=== PATIENT | male | born 1945 | race Caucasian/White ===

== ENCOUNTER → 2019-01-08 | Outpatient (CLI) | payer MEDICARE, BC ==
--- NOTE | 2019-01-08 10:11 | XR ---
EXAMINATION TYPE: XR lumbosacral spine min 4V DATE OF EXAM: 01/08/2019 CLINICAL HISTORY: pain COMPARISON: NONE TECHNIQUE: Frontal, lateral, and oblique images of the lumbar spine are obtained. FINDINGS: Grade 1 anterolisthesis L4 and L5 measuring 7 mm and L5 on S1 also measuring approximately 7 mm. Severe degenerative narrowing L3-4, L4-5 and L5-S1 with mild narrowing at the remaining levels. No evidence for compression fracture. IMPRESSION: Degenerative changes with spondylolisthesis as noted.
== END ==
LOC: RADXRYALE 09:16
PROVIDERS: ATTEND Internal Medicine
DX: M47.816 Spondylosis without myelopathy or radiculopathy, lumbar region (principal); M47.16 Other spondylosis with myelopathy, lumbar region
CPT/HCPCS: 72110

== ENCOUNTER → 2021-05-14 | Outpatient (CLI) | payer MEDICARE, BC ==
[2021-05-14 10:05] LABS: INR 1.1 (<1.2); Partial Thromboplastin Time 26.4 sec (22.0-30.0); Prothrombin Time 11.8 sec (9.0-12.0)
--- NOTE | 2021-05-14 11:46 | XR ---
EXAMINATION TYPE: XR chest 2V DATE OF EXAM: 05/14/2021 COMPARISON: NONE HISTORY: Presurgical. TECHNIQUE: Frontal and lateral views of the chest are obtained. FINDINGS: Slightly elevated left hemidiaphragm. There is no suspicious focal air space opacity, pleu ral effusion, or pneumothorax seen. Mild cardiomegaly with single lead pacemaker and atherosclerotic thoracic aorta. The osseous structures are demineralized. IMPRESSION: Mild cardiomegaly without acute pulmonary process.
[2021-05-14 14:15] LABS: HCT 47.5 % (39.6-50.0); HGB 15.1 g/dL (13.0-17.0); MCH 32.2 pg (27.0-32.0); MCHC 31.8 g/dL (32.0-37.0); MCV 101.3 fL (80.0-97.0); Mean Platelet Volume 10.3 fL (9.5-12.2); NRBC Per 100 WBC 0 /100 WBCS (0.0-0.0); Platelet Count 194 X 10*3/uL (140-440); RBC 4.69 X 10*6/uL (4.40-5.60); RDW 13.2 % (11.5-14.5); WBC 7.63 X 10*3/uL (4.50-10.00)
[2021-05-14 14:47] LABS: Hepatitis A Antibody IgM Nonreactive (Nonreactive); Hepatitis B Core IgM Nonreactive (Nonreactive); Hepatitis B Surface Antigen Nonreactive (Nonreactive); Hepatitis C IgG Antibody Nonreactive (Nonreactive)
[2021-05-14 14:48] LABS: ALT 17 U/L (10-49); AST 27 U/L (14-35); African American GFR (CKD) 80.3 (60.0-200.0); Albumin 4.8 g/dL (3.8-4.9); Albumin/Globulin Ratio 1.68 (1.60-3.17); Alkaline Phosphatase 99 U/L (41-126); Blood Urea Nitrogen 22.9 mg/dL (9.0-27.0); Calcium 9.8 mg/dL (8.7-10.3); Carbon Dioxide 29.2 mmol/L (20.0-27.5); Chloride 100 mmol/L (96-109); Chol/HDL Ratio 2.44 Ratio; Globulin 2.8 g/dL (1.6-3.3); Glucose 101 mg/dL (70-110); LDL Cholesterol,Calculated 68.3 mg/dL (0.0-131.0); Magnesium 2.2 mg/dL (1.5-2.4); Non-African American GFR(CKD) 69.3 (60.0-200.0); Potassium 4.4 mmol/L (3.5-5.5); Sodium 143 mmol/L (135-145); Total Protein 7.6 g/dL (6.2-8.2); VLDL Calculation 17.28 mg/dL (5.00-40.00)
[2021-05-14 15:30] LABS: Appearance,Urine Clear (Clear); Bilirubin,Urine Negative (Negative); Blood,Urine Negative (Negative); Color,Urine Yellow (Yellow); Ketones,Urine Negative (Negative); Leukocyte Esterase,Urine Negative (Negative); Nitrite,Urine Negative (Negative); PH, Urine 6.5 (5.0-8.0); Protein,Urine Negative (Negative); Urobilinogen,Urine 0.2 (0.2,1.0)
== END | disposition home or self-care (01) ==
LOC: LABWHC1 09:05
PROVIDERS: ATTEND Thoracic Surgery (Cardiothoracic Vascular Surgery)
DX: Z01.812 Encounter for preprocedural laboratory examination (principal); I51.7 Cardiomegaly
CPT/HCPCS: 36415; 71046; 80053; 80061; 80074; 81003; 83036; 83735; 84439; 84443; 85027; 85610; 85730; 87070; 87086; 93970

== ENCOUNTER 2021-05-19 05:41 | Inpatient (IN) | payer MEDICARE, BC ==
[~2021-05-19 05:41] MED LIST: ALBUMIN HUMAN 25% 50 ML IV ONE; ALBUMIN HUMAN 5% 500 ML IVPB ONE; ASPIRIN 325 MG TAB PO ONE; ATORVASTATIN 10 MG TAB PO ONE; CALCIUM CHLORIDE 100 MG/ML 10 ML SYRINGE IV ONE; CARDIOPLEGIC SOLN (K+ 16 MEQ/L 1,000 ML with SODIUM BICARB (1 MEQ/ML) 20 ML, LIDOCAINE ... PERFUSION ONE; CHLORHEXIDINE GLUCONATE 15 ML CUP MUCOUS MEM ONE; CLEVIDIPINE BUTYRATE 25 MG in EMPTY BAG 1 BAG IV ONE; DEXAMETHASONE SOD PHOSPHATE 4 MG/ML 1 ML VIAL IV ONE; HEPARIN SODIUM 1,000 UN/ML (10ML VL) IV ONE; HEPARIN SODIUM,PORCINE 5,000 UNIT in SODIUM CHLORIDE 0.9% 500 ML 500 ML IV ONE; INSULIN REGULAR 100 UNIT in SODIUM CHLORIDE 0.9% 100 ML IV ONE; LACTATED RINGERS 1,000 ML IV ONE; LACTATED RINGERS 1,000 ML IV SCH; MAGNESIUM SULFATE 16.24 MEQ in EMPTY SYRINGE 1 SYR IV ONE; MANNITOL 25% 12.5 GM/50 ML VIAL IV ONE; METOPROLOL TARTRATE 12.5 MG TAB PO ONE; NITROGLYCERIN SL TABS 0.4 MG TAB SUBLINGUAL ONE; NITROGLYCERIN-D5W PMX 25 MG/250 ML BTL IV ONE; NITROGLYCERIN-D5W PMX 50 MG in DEXTROSE/WATER 1 250ML.BAG IV ONE; NOREPINEPHRINE 4 MG in SODIUM CHLORIDE 0.9% 250 ML IV ONE; ONDANSETRON 4 MG/2 ML VIAL IVP ONE; PAPAVERINE 360 MG in SODIUM CHLORIDE 0.9% 90 ML IV ONE; PHENYLEPHRINE 10 MG/ML VIAL IV ONE; PHENYLEPHRINE 40 MG in SODIUM CHLORIDE 0.9% 250 ML IV ONE; PROTAMINE SULFATE 10 MG/ML 25 ML VIAL IV ONE; PROTAMINE SULFATE 250 MG in EMPTY BAG 1 BAG IV ONE; SODIUM BICARB 8.4% 50 ML SYR (1 MEQ/ML) IV ONE; SODIUM CHLORIDE 0.9% 1,000 ML IV ONE; TRANEXAMIC ACID 2,000 MG in SODIUM CHLORIDE 0.9% 80 ML IV ONE; ceFAZolin 1,000 MG in SODIUM CHLORIDE 0.9% IRRIGATIO 1,000 ML IRRIGATION ONE; propofoL 1,000 MG/100 ML VIAL IV ONE
[2021-05-19] MEDS ORDERED: LIDOCAINE 1% (10MG/ML) FOR IV START INTRADERMA ONE (06:23)
[2021-05-19 06:33] LABS: Glucose,Whole Blood 94 mg/dL (75-99)
[2021-05-19] MEDS ORDERED: HYDROmorphone 0.5 MG/0.5 ML SYRINGE IVP PRN (07:00)
[2021-05-19] MEDS ORDERED: MIDAZOLAM HCL 10 MG/10 ML VIAL ONE (07:43)
[2021-05-19] MEDS ORDERED: ELECTROLYTE-R (PH 7.4) 1,000 ML IV.SOLN IV ONE (07:43)
[2021-05-19] MEDS ORDERED: MAGNESIUM SULFATE 4 MEQ/ML 10ML VIAL ONE (07:43)
[2021-05-19] MEDS ORDERED: HEPARIN SODIUM,PORCINE 10,000 UNIT/ML 1 ML VIAL ONE (07:43)
[2021-05-19] MEDS ORDERED: PROPOFOL 10 MG/ML 20 ML VIAL IV ONE (07:43)
[2021-05-19] MEDS ORDERED: ALBUMIN HUMAN 5% (25gm) 500 ML VIAL IVPB ONE (07:43)
[2021-05-19] MEDS ORDERED: PHENYLEPHRINE-0.9% NACL SYG 1,000 MCG/10 ML SYRINGE ONE (07:43)
[2021-05-19] MEDS ORDERED: SODIUM CHLORIDE 0.9% IRRIG 1,000 ML BTL IRRIGATION ONE ×2 (07:43→20:59)
[2021-05-19] MEDS ORDERED: LIDOCAINE 2% SYG (PF) 100 MG/5 ML ONE (07:43)
[2021-05-19] MEDS ORDERED: fentaNYL (PF) 50 MCG/ML 50 ML VIAL ONE (07:43)
[2021-05-19] MEDS ORDERED: CALCIUM CHLORIDE 100 MG/ML 10 ML SYRINGE ONE (07:43)
[2021-05-19] MEDS ORDERED: VECURONIUM 10 MG VIAL IV ONE (07:43)
--- NOTE | 2021-05-19 08:02 | P.ANPRN ---
Procedure Note - Anesthesia - Invasive Line Right Central Line Time Out Performed: Yes ([id number]) Date of Procedure: 05/19/21 Time of Procedure: 07:26 Location of Patient: PreOp Preparation: Sterile Prep, Sterile Dressing Ultrasound Used: Yes Purpose - Visualization and Identification of Vasculature: Yes Image Stored and Saved: Yes Narrative: Central line placement per sterile protocol utilized. Informed consent obtained. Central line placement per sterile protocol utilized. Right Internal jugular vein cannulated under aseptic precautions. 3cc 1% lidocaine infiltrated initially after cleaning with iodine based prep and draping. Ultrasound used to locate the vein and selginger technique used. 9Fr introduced sheath inserted and after the finding the needle with airplane pilot photogrammetry needle/catheter. After the insertion of PA Catheter the line is dressed with biopatch and tegaderm. Patient tolerated the procedure well. Right [place] Time Out Performed: Yes Date of Procedure: 05/19/21 Time of Procedure: 07:42 Location of Patient: PreOp Preparation: Sterile Prep, Sterile Dressing Narrative: . Central line placement per sterile protocol utilized. 8Ff PA catheter threaded through the Right IJ introducer sheath under asepsis with continuous waveform monitoring. Catheter at 58 cms tino. - BRIONNA Intraop Pre Bypass BRIONNA Intraop - Anesthesia Indication: Aortic valve mass resection, mitral valve and tricuspid valve repair Date of Procedure: 05/19/21 Pre-operative Diagnosis: Aortic valve mass- fibroblastoma, mitral and tricuspid regurgitation Post-operative Diagnosis: Resection of the aortic valve mass, mitral and tricuspid ring annuloplasty Surgeon: Lazaro Aj Left Ventricle: Ejection fraction is 55-60% Ejection Fraction: Normal Regional Wall Motion Abnormalities: None Left Ventricle Hypertrophy: No R. Ventricle Function: Normal Aortic Valve: A 1 cm mobile pedunculated mass seen on the left coronary cusp on the aortic side. No significant aortic stenosis or regurgitation is seen. Trace AI seen. Anatomy: Trileaflet Aortic Stenosis: None Aortic Regurgitation: Trace Mitral Stenosis: None Mitral Regurgitation: Moderate Tricuspid Stenosis: None Tricuspid Regurgitation: Moderate R. Atrial Dilation: Yes R. Atrial PFO: No L. Atrial Dilation: Yes Aortic Dissection: No Aortic Calcification: None Plural Effusion: None - BRIONNA Intraop Post Bypass BRIONNA Intraop Post Bypass Left Ventricle: Ejection fraction 50% Ejection Fraction: Normal Regional Wall Motion Abnormalities: None R. Ventricle Function: Normal Aortic Valve: Unchanged Aortic Valve: No mass seen in the aortic valve now. Trace AI seen same as before Mitral Valve: Not residual mitral regurgitation seen. Valvuloplasty ring appears to be seated well. Peak gradient across the prosthetic mitral valve is 5 mm of Hg and mean gradient 2mm of Hg. Tricuspid: Tricuspid valvuloplasty using seen. Seated well. No significant regurgitation seen. No significant gradient across the valve. Pulmonic: Unchanged Aortic Dissection: No
[2021-05-19 08:19] LABS: ABG Base Excess 5.8 mmol/L; ABG Glucose Whole Blood 94 mg/dL (75-99); ABG HCO3 30 mmol/L (21-25); ABG Hematocrit 42 % (34.0-46.0); ABG Ionized Calcium 4.6 mg/dL (4.5-5.3); ABG Lactic Acid Whole Blood 0.6 mmol/L (0.5-1.6); ABG PCO2 40 mmHg (35-45); ABG PH 7.48 (7.35-7.45); ABG Potassium Whole Blood 3.1 mmol/L (3.4-4.5); ABG Sodium Whole Blood 142 mmol/L (135-146); ABG TCO2 31 mmol/L (19-24)
[2021-05-19] MEDS ORDERED: ceFAZolin 1,000 MG in SODIUM CHLORIDE 0.9% 1,000 ML IRRIGATION ONE (09:06)
[2021-05-19] MEDS ORDERED: SODIUM CHLORIDE 0.9% 500 ML 500 ML with HEPARIN SODIUM,PORCINE 5,000 UNIT IV ONE ×2 (09:06)
[2021-05-19 09:07] LABS: ABG Base Excess 4.6 mmol/L; ABG Glucose Whole Blood 140 mg/dL (75-99); ABG HCO3 30 mmol/L (21-25); ABG Hematocrit 41 % (34.0-46.0); ABG Ionized Calcium 4.6 mg/dL (4.5-5.3); ABG Lactic Acid Whole Blood 0.8 mmol/L (0.5-1.6); ABG Oxygen Saturation 99.5 % (94-97); ABG PCO2 46 mmHg (35-45); ABG PH 7.42 (7.35-7.45); ABG PO2 181 mmHg (83-108); ABG Potassium Whole Blood 3.1 mmol/L (3.4-4.5); ABG Sodium Whole Blood 142 mmol/L (135-146); ABG TCO2 31 mmol/L (19-24)
[2021-05-19 09:47] LABS: ABG Base Excess 1.7 mmol/L; ABG Glucose Whole Blood 137 mg/dL (75-99); ABG HCO3 26 mmol/L (21-25); ABG Hematocrit 34 % (34.0-46.0); ABG Lactic Acid Whole Blood 0.9 mmol/L (0.5-1.6); ABG PCO2 40 mmHg (35-45); ABG PH 7.43 (7.35-7.45); ABG PO2 379 mmHg (83-108); ABG Sodium Whole Blood 139 mmol/L (135-146); ABG TCO2 27 mmol/L (19-24)
[2021-05-19 10:30] LABS: ABG Glucose Whole Blood 140 mg/dL (75-99); ABG HCO3 28 mmol/L (21-25); ABG Ionized Calcium 4.5 mg/dL (4.5-5.3); ABG Lactic Acid Whole Blood 0.9 mmol/L (0.5-1.6); ABG PCO2 51 mmHg (35-45); ABG PH 7.34 (7.35-7.45); ABG PO2 356 mmHg (83-108); ABG Potassium Whole Blood 3.4 mmol/L (3.4-4.5); ABG Sodium Whole Blood 140 mmol/L (135-146); ABG TCO2 29 mmol/L (19-24)
[2021-05-19 11:07] LABS: ABG Glucose Whole Blood 162 mg/dL (75-99); ABG HCO3 26 mmol/L (21-25); ABG Ionized Calcium 4.4 mg/dL (4.5-5.3); ABG Lactic Acid Whole Blood 0.9 mmol/L (0.5-1.6); ABG PCO2 37 mmHg (35-45); ABG PH 7.45 (7.35-7.45); ABG PO2 364 mmHg (83-108); ABG Potassium Whole Blood 3.5 mmol/L (3.4-4.5); ABG Sodium Whole Blood 140 mmol/L (135-146); ABG TCO2 27 mmol/L (19-24)
[2021-05-19 11:34] LABS: ABG Glucose Whole Blood 154 mg/dL (75-99); ABG HCO3 26 mmol/L (21-25); ABG Ionized Calcium 4.5 mg/dL (4.5-5.3); ABG Lactic Acid Whole Blood 0.8 mmol/L (0.5-1.6); ABG PCO2 46 mmHg (35-45); ABG PH 7.36 (7.35-7.45); ABG PO2 313 mmHg (83-108); ABG Potassium Whole Blood 3.4 mmol/L (3.4-4.5); ABG Sodium Whole Blood 141 mmol/L (135-146); ABG TCO2 28 mmol/L (19-24)
--- NOTE | 2021-05-19 12:39 | P.OP ---
Date of Procedure: 05/19/21 Preoperative Diagnosis: Aortic valve tumor, mitral regurgitation, tricuspid regurgitation, chronic persistent atrial fibrillation. Postoperative Diagnosis: Same Procedure(s) Performed: Resection of aortic valve tumor, mitral valve annuloplasty, tricuspid valve annuloplasty, modified biatrial Butler maze with occlusion of left atrial appendage with a 40 mm AtriCure clip, epi-aortic ultrasonography. Implants: 40 mm AtriCure clip, 30 mm physio-2 mitral annuloplasty ring, 30 mm MC 3 tricuspid annuloplasty band Anesthesia: GETA Surgeon: Lazaro Aj Clinical Operations Leader #1: Zafar Webber Clinical Operations Leader #2: Fredrick Zhou Estimated Blood Loss (ml): 500 IV fluids (ml): 2,000 Urine output (ml): 400 Pathology: other (Aortic valve tumor for permanent section) Condition: stable Disposition: ICU Indications for Procedure: 75-year-old male who presented 9 months ago with sepsis. Etiology is sepsis was never determined. Echocardiography demonstrated an abnormality on the aortic valve. There was a mass present. This was felt to possibly represent endocarditis and the patient was treated with antibiotics. 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 Patient was also noted to have 3+ MR and 3+ TR with markedly dilated atria and ventricles. Patient had long-standing history of atrial fibrillation with permanent VVI pacemaker implant. Ventricular function was well preserved. Patient eventually came to see me for surgical consultation about a month ago. The natural history of papillary fibro-elastoma was discussed with the patient and he was at high risk for embolization and stroke. Elective surgery was scheduled. Preoperative cardiac catheterization demonstrated no significant coronary artery disease. Operative Findings: BRIONNA confirmed the findings of the previous echo and BRIONNA performed on an outpatient basis last fall. Was a 1 cm tumor attached to the left coronary cusp of the aortic valve. With central mitral and recurrent tricuspid valvular regurgitation which was moderate to severe. Epi-aortic ultrasonography intraoperatively demonstrated no significant disease in the ascending aorta. Exploration of the mitral and tricuspid valves revealed normal valves with dilated annularly. Exploration of the aortic valve demonstrated a 1 cm fibrinous tumor attached to the edge of the leaflet of the left coronary cusp of the aortic valve. There were able to resect this without significant impact on the overall structural integrity of the aortic valve. Description of Procedure: Patient was brought to the operating room, placed supine on the operating table, anesthetized and intubated. Operative monitoring lines had been placed in the preop holding area. The anterior torso and bilateral lower extremities were sterilely prepped and draped. Midline sternotomy was performed. The left pleural space was opened widely of the right was opened moderately. Standard sternal retractor was placed. Pericardium was opened in the midline and the heart was exposed with pericardial sutures. Patient was systemically heparinized. Dissection was carried out around the right superior and inferior pulmonary veins and the left atrium ablated at the entrance of the right sided pulmonary veins using the AtriCure clamp. 3 parallel lines were performed. Once we assured good heparinization, the patient was cannulated for cardiopulmonary bypass. Epi-aortic ultrasound was performed prior to cannulation and demonstrated essentially normal ascending aorta. 7 mm arterial cannula was placed in the distal ascending aorta. A 36 straight venous cannula was placed through the right atrial appendage into the inferior vena cava 30 right angle cannula was placed in the superior vena cava. These were connected to the pump and the lines were rapped. Antegrade and retrograde cardiac please lines were placed in standard fashion. The patient was placed on cardioplegia bypass and stabilized. The ligament of Nhan was divided with electrocautery of the left-sided pulmonary veins were encircled. The left atrium was ablated at the insertion of the left-sided pulmonary veins with 3 parallel lines using the AtriCure clamp. 40 mm AtriCure clip was placed at the base of the left a trial appendage. Aorta was crossclamped and the heart was arrested with cold crystalloid antegrade cardioplegia followed by retrograde cardioplegia. The interatrial groove was developed and the left atrium was entered through the interatrial groove. The mitral valve was exposed with the John retractor. AtriCure clamp was used to create 3 parallel lines at the floor of the left atrium and the roof of the left atrium. Cryoablation was performed onto the mitral annulus posteriorly as well as epicardially onto the coronary sinus. Annuloplasty sutures were placed around the annulus of the mitral valve. The valve and been explored and tested and central regurgitation noted. The anterior leaflet was sized and a 30 mm ring was chosen. The annuloplasty sutures were placed through the sewing ring of the physio-2:30 millimeter ring and the ring was seated and the sutures tied. This resulted in a well- functioning mitral valve without any regurgitation. The left atrium was closed with a running 3-0 Prolene in a single layer. The suture was not yet tied and the left atrial vent was left in place. The aorta was now opened transversely of the aortic valve was exposed. The tumor was immediately evident. The tumor was arising from the edge of the left coronary cusp of the aortic valve. The tumor was shaved off removing just a 1 mm rim of the edge of the leaflet. Tumor was sent for permanent section. Aortic valve was tested and noted to be competent. Aortotomy was closed with a running 2 layer closure of 4-0 Prolene. This dose of antegrade cardioplegia was given. The cable tapes were tightened. The right atrium was opened with a vertical incision. Superior and inferior vena caval lines were created with the AtriCure clamp. 3 parallel lines were performed. Line was performed from the incision into the right atrial appendage. Again 3 parallel lines were performed. A Crile lesion was then taken from the end of the incision across the tricuspid annulus anteriorly. This completed the right-sided maze. Annuloplasty sutures were placed around the annulus of the tricuspid valve avoiding the area of the conduction tissue. A 30 mm MC 3 band was brought up onto the field and the valve sutures placed through the band. The band was seated and the sutures tied without difficulty. The patient was placed in Trendelenburg and the cross-clamp was removed. The right atriotomy was closed with 5-0 Prolene in a single layer. Temporary pacing wires were placed. Patient was AV paced. Patient was rewarmed to systemic temperature from a delano of 34. Retrograde cardioplegia line was removed and the inferior vena caval cannula was pulled back into the right atrium. The superior vena caval cannula was removed. De-airing was monitored with BRIONNA. Once good de-airing had been completed the aortic vent line was removed. Once rewarmed to systemic temperature, the patient was weaned from cardioplegic bypass without the use of inotropic support. Heparin was reversed with protamine and good hemostasis was maintained throughout. The patient was weaned from cardiopulmonary bypass without the use of inotropic support. Pump was returned to the patient. The patient was decannulated in standard fashion. Aortic cannulation sites were reinforced with 40 pledgeted Prolene suture. Heparin was reversed with protamine and good hemostasis was obtained throughout. Right pleural space was drained with a 19 Ghanshyam. The left pleural space was drained with a 32-Bulgarian chest tube. The mediastinum was drained with 36-Bulgarian chest tube. After assuring good hemostasis, the chest was irrigated with antibiotic solution. The sternum was closed with 8 sternal wires. Fascia was closed with 0 [place] area subcutaneous and subcuticular layers were closed wit h layers of Vicryl suture. Dry sterile dressings were applied the patient was transferred to the ICU in stable condition.
[2021-05-19 12:42] LABS: ABG Base Excess -1.2 mmol/L; ABG Glucose Whole Blood 120 mg/dL (75-99); ABG HCO3 25 mmol/L (21-25); ABG Hematocrit 38 % (34.0-46.0); ABG Ionized Calcium 4.4 mg/dL (4.5-5.3); ABG Lactic Acid Whole Blood 1.5 mmol/L (0.5-1.6); ABG Oxygen Saturation 98.6 % (94-97); ABG PCO2 46 mmHg (35-45); ABG PH 7.34 (7.35-7.45); ABG PO2 137 mmHg (83-108); ABG Potassium Whole Blood 3.6 mmol/L (3.4-4.5); ABG Sodium Whole Blood 142 mmol/L (135-146); ABG TCO2 26 mmol/L (19-24)
[2021-05-19 12:50] LABS: ABG PO2 >420 mmHg (83-108)
[2021-05-19 12:51] LABS: ABG Potassium Whole Blood 2.9 mmol/L (3.4-4.5)
[2021-05-19 12:52] LABS: ABG Base Excess 1.2 mmol/L; ABG Hematocrit 33 % (34.0-46.0); ABG Oxygen Saturation 99.7 % (94-97)
[2021-05-19 12:55] LABS: ABG Base Excess 1.7 mmol/L
[2021-05-19 12:56] LABS: ABG Base Excess 0.3 mmol/L
[2021-05-19 12:56] LABS: ABG Hematocrit 32 % (34.0-46.0); ABG Oxygen Saturation 99.9 % (94-97)
[2021-05-19 12:57] LABS: ABG Hematocrit 34 % (34.0-46.0); ABG Oxygen Saturation 99.7 % (94-97)
[2021-05-19] MEDS ORDERED: DEXTROSE 5% IN WATER 100 ML with AMIODARONE 150 MG IV PRN (13:15)
[2021-05-19] MEDS ORDERED: CALCIUM GLUCONATE IN NACL 2 GM in SALINE 1 100ML.BAG IVPB PRN (13:15)
[2021-05-19] MEDS ORDERED: FLUTICASONE 50MCG/SPRAY NASAL 16GM EA NOSTRIL PRN (13:15)
[2021-05-19] MEDS ORDERED: Magnesium Replacement Protocol 1 EACH MISC MISCELLANE PRN (13:15)
[2021-05-19] MEDS ORDERED: AMIODARONE 360 MG in DEXTROSE 5% IN WATER 200 ML IV ONE ×2 (13:15)
[2021-05-19] MEDS ORDERED: hydrALAZINE HCL 20 MG/ML 1 ML VIAL IVP PRN (13:15)
[2021-05-19] MEDS ORDERED: BENZOCAINE/MENTHOL LOZENG 1 EACH LOZENGE MUCOUS MEM PRN (13:15)
[2021-05-19] MEDS ORDERED: DEXMEDETOMIDINE/0.9% NACL(PMX) 400 MCG in EMPTY BAG 1 BAG IV SCH (13:15)
[2021-05-19] MEDS ORDERED: Potassium Replacement Protocol 1 EACH MISC MISCELLANE PRN (13:15)
[2021-05-19] MEDS ORDERED: CLEVIDIPINE BUTYRATE 25 MG in EMPTY BAG 1 BAG IV SCH (13:15)
[2021-05-19] MEDS ORDERED: IPRATROPIUM-ALBUTEROL 3 ML NEB INHALATION PRN (13:15)
[2021-05-19] MEDS ORDERED: Phosphorus Replacement Protoco 1 EACH MISC MISCELLANE PRN (13:15)
[2021-05-19] MEDS ORDERED: ONDANSETRON 4 MG/2 ML VIAL IVP PRN (13:15)
[2021-05-19] MEDS ORDERED: METOCLOPRAMIDE 5 MG/ML 2 ML VIAL IVP PRN (13:15)
[2021-05-19] MEDS: ALBUMIN HUMAN 5% 250 ML in EMPTY BAG 1 BAG IVPB PRN ×11 (13:22→23:19)
[2021-05-19 13:29] LABS: Glucose,Whole Blood 143 mg/dL (75-99)
[2021-05-19] MEDS: LACTATED RINGERS 1,000 ML IV SCH (13:29)
[2021-05-19 13:43] LABS: Basophils % (A) 0 %; Eosinophils # (A) 0.1 k/uL (0-0.7); Eosinophils % (A) 0 %; HCT 39.1 % (39.0-53.0); HGB 13.3 gm/dL (13.0-17.5); Lymphocytes % (A) 7 %; MCH 34.6 pg (25.0-35.0); MCV 101.8 fL (80.0-100.0); Macrocytosis Slight; Mean Platelet Volume 7.4; Monocytes # (A) 0.7 k/uL (0-1.0); Monocytes % (A) 5 %; Neutrophils # (A) 11.8 k/uL (1.3-7.7); Neutrophils % (A) 86 %; Platelet Count 140 k/uL (150-450); RBC 3.84 m/uL (4.30-5.90); RDW 13.2 % (11.5-15.5); WBC 13.7 k/uL (3.8-10.6)
[2021-05-19 13:52] LABS: ABG Base Excess -2.1 mmol/L; ABG HCO3 25 mmol/L (21-25); ABG Oxygen Saturation 99.9 % (94-97); ABG PCO2 52 mmHg (35-45); ABG PH 7.28 (7.35-7.45); ABG PO2 365 mmHg (83-108); ABG TCO2 26 mmol/L (19-24)
--- NOTE | 2021-05-19 13:53 | XR ---
EXAMINATION TYPE: XR chest 1V portable DATE OF EXAM: 05/19/2021 COMPARISON: X-ray dated 05/14/2021 HISTORY: Postoperative cardiac surgery TECHNIQUE: Single frontal view of the chest is obtained. FINDINGS: An endotracheal tube is seen with the tip is almost at the juan, withdrawal for about 3cm is advise d. An NG tube is seen with the tip is likely below the diaphragm. A [place] catheter is seen in yong ce. Left intercostal drainage tube with the tip superimposed on the lateral aspect of the right midlu ng zone. Increased cardiac size with sternotomy wire sutures and cardiac valve prosthesis. Left upper chest wa ll single lead pacemaker, appreciated previously. Left intercostal drainage tube with the tip superim posed on the left lung apex. Suspected retrocardiac opacity. Aortic atherosclerotic calcifications. IMPRESSION: Postoperative changes and intubation as described above. The endotracheal tube tip is almost at the c janice, recommend withdrawal for about 3 cm.
[2021-05-19 13:54] LABS: Allen Test Performed? no
[2021-05-19 13:55] LABS: INR 1.2 (<1.2); Partial Thromboplastin Time 35.3 sec (22.0-30.0)
[2021-05-19 13:59] LABS: ALT 18 U/L (4-49); African American GFR (CKD) >90 (>60 ml/min/1.73 sqM); Albumin 3.3 g/dL (3.5-5.0); Anion Gap 6 mmol/L; Blood Urea Nitrogen 20 mg/dL (9-20); Calcium 7.8 mg/dL (8.4-10.2); Carbon Dioxide 23 mmol/L (22-30); Chloride 109 mmol/L (98-107); Glucose 135 mg/dL (74-99); Non-African American GFR(CKD) >90 (>60 ml/min/1.73 sqM); Sodium 138 mmol/L (137-145); Total Protein 5.7 g/dL (6.3-8.2)
[2021-05-19 14:04] LABS: AST 160 U/L (17-59); Alkaline Phosphatase 61 U/L (38-126); Potassium 4.3 mmol/L (3.5-5.1)
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
[2021-05-19] MEDS ORDERED: MUPIROCIN 2% OINT 22 GM TUBE NASAL ONE (15:00)
[2021-05-19 15:09] LABS: Glucose,Whole Blood 155 mg/dL (75-99)
[2021-05-19] MEDS: INSULIN REGULAR 100 UNIT in SODIUM CHLORIDE 0.9% 100 ML IV SCH (15:11)
[2021-05-19] MEDS ORDERED: IPRATROPIUM-ALBUTEROL 3 ML NEB INHALATION SCH (16:00)
[2021-05-19 16:08] LABS: Glucose,Whole Blood 156 mg/dL (75-99)
[2021-05-19] MEDS: HEPARIN SODIUM,PORCINE/PF 5,000 UNIT/0.5 ML SYRINGE SQ SCH (16:18)
[2021-05-19 16:27] LABS: Basophils % (A) 0 %; Eosinophils % (A) 0 %; HCT 33.3 % (39.0-53.0); HGB 11.1 gm/dL (13.0-17.5); Lymphocytes # (A) 0.5 k/uL (1.0-4.8); Lymphocytes % (A) 5 %; MCH 34.1 pg (25.0-35.0); MCHC 33.2 g/dL (31.0-37.0); MCV 102.7 fL (80.0-100.0); Macrocytosis Slight; Mean Platelet Volume 7.6; Monocytes # (A) 0.5 k/uL (0-1.0); Monocytes % (A) 5 %; Neutrophils # (A) 8.9 k/uL (1.3-7.7); Neutrophils % (A) 89 %; Platelet Count 139 k/uL (150-450); RBC 3.25 m/uL (4.30-5.90); RDW 13.3 % (11.5-15.5)
[2021-05-19] MEDS: DOPamine DRIP 800 MG in DEXTROSE/WATER 1 250ML.BAG IV SCH (17:01)
[2021-05-19] MEDS: ACETAMINOPHEN IV (For NPO) 1,000 MG in EMPTY BAG 1 BAG IVPB SCH ×2 (17:01→23:46)
[2021-05-19 17:14] LABS: Glucose,Whole Blood 156 mg/dL (75-99)
[2021-05-19 18:06] LABS: Glucose,Whole Blood 167 mg/dL (75-99)
[2021-05-19 18:14] LABS: Basophils % (A) 0 %; Eosinophils % (A) 0 %; HCT 27.3 % (39.0-53.0); Lymphocytes # (A) 0.5 k/uL (1.0-4.8); Lymphocytes % (A) 6 %; MCH 33.9 pg (25.0-35.0); MCHC 33.2 g/dL (31.0-37.0); MCV 101.8 fL (80.0-100.0); Macrocytosis Slight; Mean Platelet Volume 9.9; Monocytes # (A) 0.5 k/uL (0-1.0); Monocytes % (A) 5 %; Neutrophils # (A) 8.3 k/uL (1.3-7.7); Neutrophils % (A) 89 %; Platelet Count 121 k/uL (150-450); RBC 2.68 m/uL (4.30-5.90); RDW 13.3 % (11.5-15.5); WBC 9.4 k/uL (3.8-10.6)
[2021-05-19 18:46] LABS: HGB 9.1 gm/dL (13.0-17.5)
[2021-05-19 19:02] LABS: Glucose,Whole Blood 153 mg/dL (75-99)
[2021-05-19] MEDS ORDERED: AMIODARONE 450 MG in DEXTROSE 5% IN WATER 250 ML IV SCH ×2 (19:15)
[2021-05-19 19:16] LABS: INR 1.3 (<1.2); Prothrombin Time 13.9 sec (9.0-12.0)
[2021-05-19 19:17] LABS: Partial Thromboplastin Time 43.8 sec (22.0-30.0)
[2021-05-19 19:52] LABS: Glucose,Whole Blood 144 mg/dL (75-99)
[2021-05-19] MEDS: IPRATROPIUM-ALBUTEROL 3 ML NEB INHALATION SCH (19:59)
[2021-05-19] MEDS: NOREPINEPHRINE 4 MG in SODIUM CHLORIDE 0.9% 250 ML IV SCH (20:24)
[2021-05-19 20:48] LABS: Glucose,Whole Blood 127 mg/dL (75-99)
[2021-05-19] MEDS ORDERED: fentaNYL (PF) 50 MCG/ML 2 ML AMP ONE (20:59)
[2021-05-19] MEDS ORDERED: ROCURONIUM 10 MG/ML (5 ML VIAL) IV ONE (20:59)
--- NOTE | 2021-05-19 22:51 | P.OP ---
Date of Procedure: 05/19/21 Preoperative Diagnosis: Post-operative hemorrhage Postoperative Diagnosis: Same Procedure(s) Performed: Exploration for post-operative hemorrhage and mediastinal washout Anesthesia: ALEKSANDER Surgeon: Zafar Webber Graphic Design Intern #1: Fredrick Zhou Estimated Blood Loss (ml): 1,000 Pathology: none sent Condition: critical Disposition: ICU Indications for Procedure: This patient is a 75 year-old male who underwent sternotomy, resection of mass from aortic valve, mitral valve and tricuspid valve repair earlier in the day. Post-operative he was noted to have increased chest tube output from his pleural tubes and requiring multiple boluses of colloid with a dropping hemoglobin. In addition he was requiring vasopressors for blood pressure support. The decision was made to re-explore. Operative Findings: 1L of fresh blood and clot removed from right chest. Likely chest wall bleeder on right side. All surgical sites dry. 1 unit pRBC and cell saver given back during re-exploration. Description of Procedure: The patient was brought directly from the ICU to the operating room and placed in the supine position. General anesthesia was induced and the patient was prepped from the chin to the knees in the usual sterile fashion. A time-out was performed and antibiotics were given. The median sternotomy was opened, wires were removed and the chest was re-explored. All of the surgical sites were visualized and irrigated without evidence of bleeding. There was about 1L of fresh blood and clots from the right chest wall. There was an area in the middle of the right chest wall that was oozing. This electrocautery was used to obtain hemostasis here. The internal mammary vein was suture ligated here just as a precaution. The rest of the chest was copiously irrigated and checked for hemostasis. 1 unit of blood and cell saver was given back to the patient. His blood pressure improved drastically and the norepinephrine was turned off. He was transferred back to the ICU in stable condition.
[2021-05-19 23:17] LABS: Glucose,Whole Blood 158 mg/dL (75-99)
[2021-05-19 23:29] LABS: Basophils % (A) 0 %; Eosinophils % (A) 0 %; HCT 26.2 % (39.0-53.0); HGB 8.7 gm/dL (13.0-17.5); Lymphocytes # (A) 0.5 k/uL (1.0-4.8); Lymphocytes % (A) 5 %; MCH 33.3 pg (25.0-35.0); MCHC 33.1 g/dL (31.0-37.0); MCV 100.7 fL (80.0-100.0); Macrocytosis Slight; Mean Platelet Volume 8.7; Monocytes # (A) 0.6 k/uL (0-1.0); Monocytes % (A) 7 %; Neutrophils # (A) 7.5 k/uL (1.3-7.7); Neutrophils % (A) 87 %; RDW 14.1 % (11.5-15.5); WBC 8.7 k/uL (3.8-10.6)
[2021-05-19 23:36] LABS: INR 1.4 (<1.2); Partial Thromboplastin Time 38.3 sec (22.0-30.0)
[2021-05-19 23:42] LABS: Anisocytosis (M) Present; Ovalocytes Present
--- NOTE | 2021-05-19 23:42 | XR ---
EXAMINATION TYPE: XR chest 1V portable DATE OF EXAM: 05/19/2021 COMPARISON: Today HISTORY: Cardiac surgery TECHNIQUE: Single view FINDINGS: Endotracheal tube is 3 cm from the juan. There is nasogastric tube in the stomach. There is some patchy atelectasis in the mid and lower lung brown. There are sternal wires. There is a drai n over the right lower lung field. There are chest leads. There is left-sided chest tube over the lat eral left lung field. No pneumothorax. There is left axillary pacemaker. IMPRESSION: There is some patchy atelectasis similar to exam 10 hours ago. No heart failure.
[2021-05-19 23:43] LABS: Platelet Count 89 k/uL (150-450)
[2021-05-19] MEDS: ATORVASTATIN 10 MG TAB PO SCH (23:59)
[2021-05-20 00:06] LABS: Glucose,Whole Blood 156 mg/dL (75-99)
[2021-05-20 00:07] LABS: ABG Base Excess -5.3 mmol/L; ABG HCO3 21 mmol/L (21-25); ABG Oxygen Saturation 99.4 % (94-97); ABG PCO2 44 mmHg (35-45); ABG PH 7.29 (7.35-7.45); ABG PO2 204 mmHg (83-108); ABG TCO2 23 mmol/L (19-24)
[2021-05-20 00:13] LABS: ALT 11 U/L (4-49); AST 100 U/L (17-59); African American GFR (CKD) >90 (>60 ml/min/1.73 sqM); Albumin 3.2 g/dL (3.5-5.0); Alkaline Phosphatase 35 U/L (38-126); Anion Gap 7 mmol/L; Blood Urea Nitrogen 21 mg/dL (9-20); Calcium 7.5 mg/dL (8.4-10.2); Carbon Dioxide 20 mmol/L (22-30); Chloride 110 mmol/L (98-107); Glucose 150 mg/dL (74-99); Non-African American GFR(CKD) >90 (>60 ml/min/1.73 sqM); Potassium 3.9 mmol/L (3.5-5.1); Sodium 137 mmol/L (137-145); Total Bilirubin 1.3 mg/dL (0.2-1.3); Total Protein 4.8 g/dL (6.3-8.2)
[2021-05-20 00:56] LABS: Glucose,Whole Blood 117 mg/dL (75-99)
[2021-05-20] MEDS: ALBUMIN HUMAN 5% 250 ML in EMPTY BAG 1 BAG IVPB PRN ×3 (00:57→05:42)
[2021-05-20] MEDS ORDERED: POTASSIUM BICARBONATE/CIT AC 20 MEQ TABLET.EFF NG-TUBE SCH (01:00)
[2021-05-20 01:54] LABS: Glucose,Whole Blood 123 mg/dL (75-99)
[2021-05-20] MEDS: HYDROcodone/APAP 5-325MG 1 EACH TAB PO PRN ×5 (01:56→20:25)
[2021-05-20 02:49] LABS: ABG HCO3 21 mmol/L (21-25); ABG Oxygen Saturation 98.4 % (94-97); ABG PCO2 32 mmHg (35-45); ABG PH 7.43 (7.35-7.45); ABG PO2 133 mmHg (83-108); ABG TCO2 22 mmol/L (19-24); Allen Test Performed? Yes
[2021-05-20 03:03] LABS: Glucose,Whole Blood 123 mg/dL (75-99)
[2021-05-20 04:05] LABS: Glucose,Whole Blood 110 mg/dL (75-99)
[2021-05-20 04:22] LABS: Basophils % (A) 0 %; Eosinophils % (A) 0 %; HCT 24.2 % (39.0-53.0); Lymphocytes # (A) 0.6 k/uL (1.0-4.8); Lymphocytes % (A) 8 %; MCH 32.7 pg (25.0-35.0); MCHC 32.9 g/dL (31.0-37.0); MCV 99.4 fL (80.0-100.0); Mean Platelet Volume 10.9; Monocytes # (A) 0.6 k/uL (0-1.0); Monocytes % (A) 7 %; Neutrophils # (A) 6.7 k/uL (1.3-7.7); Neutrophils % (A) 84 %; RBC 2.43 m/uL (4.30-5.90); RDW 13.9 % (11.5-15.5); WBC 8.1 k/uL (3.8-10.6)
[2021-05-20 04:24] LABS: Platelet Count 84 k/uL (150-450)
[2021-05-20 04:40] LABS: Ionized Calcium 4.8 mg/dL (4.5-5.3)
[2021-05-20 04:59] LABS: ALT 11 U/L (4-49); AST 90 U/L (17-59); African American GFR (CKD) >90 (>60 ml/min/1.73 sqM); Albumin 3.5 g/dL (3.5-5.0); Alkaline Phosphatase 30 U/L (38-126); Anion Gap 9 mmol/L; Blood Urea Nitrogen 22 mg/dL (9-20); Calcium 7.7 mg/dL (8.4-10.2); Carbon Dioxide 19 mmol/L (22-30); Chloride 110 mmol/L (98-107); Glucose 107 mg/dL (74-99); Non-African American GFR(CKD) 88 (>60 ml/min/1.73 sqM); Potassium 3.7 mmol/L (3.5-5.1); Sodium 138 mmol/L (137-145); Total Bilirubin 1.1 mg/dL (0.2-1.3); Total Protein 5.2 g/dL (6.3-8.2)
[2021-05-20 05:21] LABS: Glucose,Whole Blood 109 mg/dL (75-99)
[2021-05-20 06:00] LABS: Glucose,Whole Blood 136 mg/dL (75-99)
[2021-05-20] MEDS ORDERED: POTASSIUM CHLORIDE ER 20 MEQ TAB.ER PO SCH (06:00)
[2021-05-20 06:56] LABS: Glucose,Whole Blood 129 mg/dL (75-99)
[2021-05-20] MEDS: HEPARIN SODIUM,PORCINE/PF 5,000 UNIT/0.5 ML SYRINGE SQ SCH ×2 (07:15)
[2021-05-20 07:44] LABS: INR 1.4 (<1.2); Prothrombin Time 14.8 sec (9.0-12.0)
[2021-05-20 07:45] LABS: Partial Thromboplastin Time 37.8 sec (22.0-30.0)
--- NOTE | 2021-05-20 08:05 | XR ---
EXAMINATION TYPE: XR chest 1V portable DATE OF EXAM: 05/20/2021 COMPARISON: X-ray dated 05/19/2021 HISTORY: Postoperative TECHNIQUE: Single frontal view of the chest is obtained. FINDINGS: Interval removal of the endotracheal tube and NG tube. Unchanged position of the [place] catheter, left upper chest wall single lead pacemaker and intercostal drainage tubes. Cardiac valve prosthesis, clip and sternotomy sutures. Increased cardiac transverse diameter. Persistent suspected left retrocardiac opacity. No definite pn eumothorax. Elevated left hemidiaphragm. Questionable small left pleural effusion. No sizable right-s ided pleural effusion. IMPRESSION: Interval changes as described above.
[2021-05-20] MEDS: MULTIVITAMINS, THERA 1 EACH TAB PO SCH (08:21)
[2021-05-20] MEDS: IPRATROPIUM-ALBUTEROL 3 ML NEB INHALATION SCH ×5 (08:32→21:17)
[2021-05-20] MEDS ORDERED: CALCIUM GLUCONATE IN NACL 1 GM in SALINE 1 100ML.BAG IVPB ONE (08:42)
[2021-05-20 08:50] LABS: Glucose,Whole Blood 106 mg/dL (75-99)
[2021-05-20] MEDS ORDERED: ASPIRIN 325 MG TAB PO SCH (09:00)
[2021-05-20] MEDS ORDERED: CLOPIDOGREL 75 MG TAB PO SCH (09:00)
[2021-05-20] MEDS ORDERED: PANTOPRAZOLE 40 MG/10 ML VIAL IVP SCH (09:00)
[2021-05-20] MEDS ORDERED: MAGNESIUM HYDROXIDE 2,400 MG/10 ML CUP PO PRN (09:00)
[2021-05-20] MEDS ORDERED: METOPROLOL TARTRATE 12.5 MG TAB PO SCH (09:00)
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
[2021-05-20] MEDS: AMIODARONE 200 MG TAB PO SCH ×2 (10:00→20:26)
[2021-05-20] MEDS: NON FORMULARY DRUG (Vitamin B Complex [Vitamin B Complex] 1 EACH Capsule) PO SCH (10:01)
[2021-05-20 10:08] LABS: Glucose,Whole Blood 116 mg/dL (75-99)
[2021-05-20] MEDS: NOREPINEPHRINE 4 MG in SODIUM CHLORIDE 0.9% 250 ML IV SCH (10:10)
[2021-05-20 11:25] LABS: Glucose,Whole Blood 99 mg/dL (75-99)
--- NOTE | 2021-05-20 11:47 | P.PN ---
Subjective Progress Note Date: 05/20/21 Principal diagnosis: Status post thoracic surgery. Pulmonary consult dated 05/19/2021. 75-year-old male who I'm seeing today in room 250. The patient is postop day #0, status post resection of a aortic valve tumor, mitral valve annuloplasty, tricuspid valve annuloplasty, and a modified Butler-Maze procedure. The patient just arrived back in the intensive care unit. Blood gases done not yet been done. Chest x-ray is adequate. The patient is on volume assist control, rate 1 4, tidal volume 400, FiO2 of 100%, and PEEP of 10. Blood gases show pO2 365, pCO2 of 52, and pH is 7.28. The FiO2 was dropped down to 50%. The rate was increased from 14 to 18. The patient's currently on propofol at 25 mcg/kg/m, norepinephrine at 2.7 mcg/m, LR at 50 mL an hour, and a soon to be started insulin drip. He was done by Dr. Aj. Most recent labs include a white count of 13.7, hemoglobin 13.3, hematocrit 39.1, and platelet count 140,000. PT was 13 with an INR 1.2. PTT is 35.3. The patient apparently has a history of atrial fibrillation, hypertension, hyperlipidemia, and mild CAD. Progress note dated 05/20/2021. 75-year-old male, seen yesterday in consultation, and room 250. He is currently postop day #1, status post resection of aortic valve tumor, mitral valve gregoria uloplasty, tricuspid valve annuloplasty, and modified Butler-Maze procedure. The patient ended up going back to the operating room last night, because there is excess bleeding and output from the right-sided chest tube. Dr. Webber did the procedure. The right chest was evacuated of a large blood clot. The cautery was used to stop any bleeding that was occurring. The patient was extubated this morning. That was at 3:15 AM. Currently, he's on 2 L nasal cannula. He is getting lactated Ringer's at 50 mL an hour, norepinephrine at 0.03 mcg/kg/m, dopamine at 3 mcg/kg/m, amiodarone at 0.5 mg/m, and insulin at 4.5 units an hour. The patient is sitting up at the bedside. He looks recently stable. Laboratory data includes a white count 8.1, hemoglobin 8, hematocrit 24.2, and platelet count 84,000. PT 14.8. INR 1.4. Blood gases this morning prior to extubation revealed a pO2 of 133, pCO2 32, and pH is 7.43. Sodium 138, potassium 3.7, chlorides 110, CO2 19, anion gap 9, BUN 22, and creatinine 0.82. Chest x-ray shows postsurgical changes. There is some basilar atelectasis. Objective - Vital Signs Vital signs: Vital Signs Temp 98.2 F 05/20/21 04:00 Pulse 80 05/20/21 11:37 Resp 15 05/20/21 11:15 BP 103/65 05/20/21 11:15 Pulse Ox 99 05/20/21 11:15 Intake & Output 05/19/21 05/20/21 05/20/21 18:59 06:59 18:59 Intake Total 2383.126 2187.393 530.378 Output Total 3655 2923 325 Balance -1271.874 -735.607 205.378 Weight 96.3 kg Intake: IV 187 799 136 Lactated Ringers 1,000 ml 400 80 @ 20 mls/hr IV .Q24H DOUG Rx#:[id number] cardiac index 90 250 20 pressure bag 45 99 36 Intake, IV Titration 2196.126 598.393 334.378 Amount ACETAMINOPHEN IV (For NPO 100 ) 1,000 mg In Empty Bag 1 bag @ 400 mls/hr IVPB Q6HR DOUG Rx#:[id number] Albumin Human 5% 250 ml 1750 250 In Empty Bag 1 bag @ 250 mls/hr IVPB Q1HR PRN Rx#: [id number] Amiodarone 450 mg In 66.4 Dextrose 5% in Water 250 ml @ 0.5 MG/MIN 16.667 mls/hr IV .Q15H DOUG Rx#: [id number] Calcium Gluconate in NaCl 100 1 gm In Saline 1 100ml. bag @ 100 mls/hr IVPB ONCE ONE Rx#:[id number] DOPamine DRIP 800 mg In 33.48 25.995 Dextrose/Water 1 250ml. bag @ 3 MCG/KG/MIN 5.164 mls/hr IV .Q24H DOUG Rx#: [id number] Insulin Regular 100 unit 8.947 45.661 17.136 In Sodium Chloride 0.9% 100 ml @ Per Protocol IV .Q0M DOUG Rx#:[id number] Lactated Ringers 1,000 ml 250 50 @ 20 mls/hr IV .Q24H DOUG Rx#:[id number] Norepinephrine 4 mg In 124.515 74.847 Sodium Chloride 0.9% 250 ml @ 0.05 MCG/KG/MIN 17. 488 mls/hr IV .[id number] DOUG Rx#:[id number] ceFAZolin 2 gm In Sodium 50 50 Chloride 0.9% 50 ml @ 100 mls/hr IVPB Q8HR DOUG Rx# :[id number] propofoL 1,000 mg In 37.179 94.737 Empty Bag 1 bag @ Titrate IV .Q0M DOUG Rx#: [id number] Oral 480 60 Blood Product 310 Rc As-1 Unit 310 [id number] Output: Chest Tube Drainage 970 1470 230 left and right pleural 635 860 50 mediastinal 335 610 180 Urine 685 453 95 Estimated Blood Loss 1999 1000 Other: Voiding Method Indwelling Catheter Indwelling Catheter ABP, PAP, CO, CI - Last Documented Arterial Blood Pressure 107/57 Pulmonary Artery Pressure 27/9 Cardiac Output 5.1 Cardiac Index 2.7 - Exam No acute distress, sitting at the bedside, on 2 L nasal cannula. No respiratory distress, or use of accessory muscles. HEENT examination is grossly unremarkable. Neck supple. Full range of motion. No adenopathy thyromegaly or neck vein distention. Cardiovascular examination reveals regular rhythm rate. S1-S2 normal. No S3 or S4. No discernible murmur noted. Heart rate 80 bpm. Lungs reveal mostly clear breath sounds. Breath sounds are equal bilaterally. Minimal scattered bilateral rhonchi noted. Abdomen soft without bowel sounds. Extremities are intact. No cyanosis clubbing or edema. Skin is without rash or lesion. Neurologic examination is brief but nonfocal. - Labs CBC & Chem 7: 05/20/21 04:13 05/20/21 04:13 Labs: Abnormal Lab Results - Last 24 Hours (Table) 05/14/21 05/19/21 05/19/21 Range/Units 09:13 08:19 09:07 WBC (3.8-10.6) k/uL RBC (4.30-5.90) m/uL Hgb (13.0-17.5) gm/dL Hct (39.0-53.0) % MCV (80.0-100.0) fL Plt Count (150-450) k/uL Neutrophils # (1.3-7.7) k/uL Lymphocytes # (1.0-4.8) k/uL PT (9.0-12.0) sec INR (<1.2) APTT (22.0-30.0) sec Fibrinogen (200-500) mg/dL ABG pH 7.48 H (7.35-7.45) ABG pCO2 46 H (35-45) mmHg ABG pO2 >420 H 181 H (83-108) mmHg ABG HCO3 30 H 30 H (21-25) mmol/L ABG Total CO2 31 H 31 H (19-24) mmol/L ABG O2 Saturation 100.0 H 99.5 H (94-97) % ABG Hematocrit (34.0-46.0) % ABG Potassium 3.1 L 3.1 L (3.4-4.5) mmol/L ABG Ionized Calcium (4.5-5.3) mg/dL ABG Glucose 140 H (75-99) mg/dL Hemoglobin (13.0-17.5) gm/dL Chloride (98-107) mmol/L Carbon Dioxide (22-30) mmol/L BUN (9-20) mg/dL Glucose (74-99) mg/dL POC Glucose (mg/dL) (75-99) mg/dL Calcium (8.4-10.2) mg/dL Magnesium (1.6-2.3) mg/dL AST (17-59) U/L Alkaline Phosphatase (38-126) U/L Total Protein (6.3-8.2) g/dL Albumin (3.5-5.0) g/dL Arterial Blood Potassium 3.1 L 3.1 L (3.4-4.5) mmol/L Arterial Blood Glucose 140 H (75-99) mg/dL Crossmatch See Detail 05/19/21 05/19/21 05/19/21 Range/Units 09:47 10:30 11:07 WBC (3.8-10.6) k/uL RBC (4.30-5.90) m/uL Hgb (13.0-17.5) gm/dL Hct (39.0-53.0) % MCV (80.0-100.0) fL Plt Count (150-450) k/uL Neutrophils # (1.3-7.7) k/uL Lymphocytes # (1.0-4.8) k/uL PT (9.0-12.0) sec INR (<1.2) APTT (22.0-30.0) sec Fibrinogen (200-500) mg/dL ABG pH 7.34 L (7.35-7.45) ABG pCO2 51 H (35-45) mmHg ABG pO2 379 H 356 H 364 H (83-108) mmHg ABG HCO3 26 H 28 H 26 H (21-25) mmol/L ABG Total CO2 27 H 29 H 27 H (19-24) mmol/L ABG O2 Saturation 100.0 H 99.7 H 99.9 H (94-97) % ABG Hematocrit 33 L 32 L (34.0-46.0) % ABG Potassium 2.9 L* (3.4-4.5) mmol/L ABG Ionized Calcium 4.0 L 4.4 L (4.5-5.3) mg/dL ABG Glucose 137 H 140 H 162 H (75-99) mg/dL Hemoglobin 11.2 L 10.9 L 10.3 L (13.0-17.5) gm/dL Chloride (98-107) mmol/L Carbon Dioxide (22-30) mmol/L BUN (9-20) mg/dL Glucose (74-99) mg/dL POC Glucose (mg/dL) (75-99) mg/dL Calcium (8.4-10.2) mg/dL Magnesium (1.6-2.3) mg/dL AST (17-59) U/L Alkaline Phosphatase (38-126) U/L Total Protein (6.3-8.2) g/dL Albumin (3.5-5.0) g/dL Arterial Blood Potassium 2.9 L* (3.4-4.5) mmol/L Arterial Blood Glucose 137 H 140 H 162 H (75-99) mg/dL Crossmatch 05/19/21 05/19/21 05/19/21 Range/Units 11:34 12:42 13:27 WBC (3.8-10.6) k/uL RBC (4.30-5.90) m/uL Hgb (13.0-17.5) gm/dL Hct (39.0-53.0) % MCV (80.0-100.0) fL Plt Count (150-450) k/uL Neutrophils # (1.3-7.7) k/uL Lymphocytes # (1.0-4.8) k/uL PT (9.0-12.0) sec INR (<1.2) APTT (22.0-30.0) sec Fibrinogen (200-500) mg/dL ABG pH 7.34 L (7.35-7.45) ABG pCO2 46 H 46 H (35-45) mmHg ABG pO2 313 H 137 H (83-108) mmHg ABG HCO3 26 H (21-25) mmol/L ABG Total CO2 28 H 26 H (19-24) mmol/L ABG O2 Saturation 99.7 H 98.6 H (94-97) % ABG Hematocrit (34.0-46.0) % ABG Potassium (3.4-4.5) mmol/L ABG Ionized Calcium 4.4 L (4.5-5.3) mg/dL ABG Glucose 154 H 120 H (75-99) mg/dL Hemoglobin 11.1 L 12.2 L (13.0-17.5) gm/dL Chloride (98-107) mmol/L Carbon Dioxide (22-30) mmol/L BUN (9-20) mg/dL Glucose (74-99) mg/dL POC Glucose (mg/dL) 143 H (75-99) mg/dL Calcium (8.4-10.2) mg/dL Magnesium (1.6-2.3) mg/dL AST (17-59) U/L Alkaline Phosphatase (38-126) U/L Total Protein (6.3-8.2) g/dL Albumin (3.5-5.0) g/dL Arterial Blood Potassium (3.4-4.5) mmol/L Arterial Blood Glucose 154 H 120 H (75-99) mg/dL Crossmatch 05/19/21 05/19/21 05/19/21 Range/Units 13:30 13:30 13:30 WBC 13.7 H (3.8-10.6) k/uL RBC 3.84 L (4.30-5.90) m/uL Hgb (13.0-17.5) gm/dL Hct (39.0-53.0) % MCV 101.8 H (80.0-100.0) fL Plt Count 140 L (150-450) k/uL Neutrophils # 11.8 H (1.3-7.7) k/uL Lymphocytes # (1.0-4.8) k/uL PT 13.0 H (9.0-12.0) sec INR 1.2 H (<1.2) APTT 35.3 H (22.0-30.0) sec Fibrinogen (200-500) mg/dL ABG pH (7.35-7.45) ABG pCO2 (35-45) mmHg ABG pO2 (83-108) mmHg ABG HCO3 (21-25) mmol/L ABG Total CO2 (19-24) mmol/L ABG O2 Saturation (94-97) % ABG Hematocrit (34.0-46.0) % ABG Potassium (3.4-4.5) mmol/L ABG Ionized Calcium (4.5-5.3) mg/dL ABG Glucose (75-99) mg/dL Hemoglobin (13.0-17.5) gm/dL Chloride 109 H (98-107) mmol/L Carbon Dioxide (22-30) mmol/L BUN (9-20) mg/dL Glucose 135 H (74-99) mg/dL POC Glucose (mg/dL) (75-99) mg/dL Calcium 7.8 L (8.4-10.2) mg/dL Magnesium 4.0 H (1.6-2.3) mg/dL AST 160 H (17-59) U/L Alkaline Phosphatase (38-126) U/L Total Protein 5.7 L (6.3-8.2) g/dL Albumin 3.3 L (3.5-5.0) g/dL Arterial Blood Potassium (3.4-4.5) mmol/L Arterial Blood Glucose (75-99) mg/dL Crossmatch 05/19/21 05/19/21 05/19/21 Range/Units 13:50 15:07 16:03 WBC (3.8-10.6) k/uL RBC 3.25 L (4.30-5.90) m/uL Hgb 11.1 L (13.0-17.5) gm/dL Hct 33.3 L (39.0-53.0) % MCV 102.7 H (80.0-100.0) fL Plt Count 139 L (150-450) k/uL Neutrophils # 8.9 H (1.3-7.7) k/uL Lymphocytes # 0.5 L (1.0-4.8) k/uL PT (9.0-12.0) sec INR (<1.2) APTT (22.0-30.0) sec Fibrinogen (200-500) mg/dL ABG pH 7.28 L (7.35-7.45) ABG pCO2 52 H (35-45) mmHg ABG pO2 365 H (83-108) mmHg ABG HCO3 (21-25) mmol/L ABG Total CO2 26 H (19-24) mmol/L ABG O2 Saturation 99.9 H (94-97) % ABG Hematocrit (34.0-46.0) % ABG Potassium (3.4-4.5) mmol/L ABG Ionized Calcium (4.5-5.3) mg/dL ABG Glucose (75-99) mg/dL Hemoglobin (13.0-17.5) gm/dL Chloride (98-107) mmol/L Carbon Dioxide (22-30) mmol/L BUN (9-20) mg/dL Glucose (74-99) mg/dL POC Glucose (mg/dL) 155 H (75-99) mg/dL Calcium (8.4-10.2) mg/dL Magnesium (1.6-2.3) mg/dL AST (17-59) U/L Alkaline Phosphatase (38-126) U/L Total Protein (6.3-8.2) g/dL Albumin (3.5-5.0) g/dL Arterial Blood Potassium (3.4-4.5) mmol/L Arterial Blood Glucose (75-99) mg/dL Crossmatch 05/19/21 05/19/21 05/19/21 Range/Units 16:07 17:11 18:05 WBC (3.8-10.6) k/uL RBC 2.68 L (4.30-5.90) m/uL Hgb 9.1 L D (13.0-17.5) gm/dL Hct 27.3 L (39.0-53.0) % MCV 101.8 H (80.0-100.0) fL Plt Count 121 L (150-450) k/uL Neutrophils # 8.3 H (1.3-7.7) k/uL Lymphocytes # 0.5 L (1.0-4.8) k/uL PT (9.0-12.0) sec INR (<1.2) APTT (22.0-30.0) sec Fibrinogen (200-500) mg/dL ABG pH (7.35-7.45) ABG pCO2 (35-45) mmHg ABG pO2 (83-108) mmHg ABG HCO3 (21-25) mmol/L ABG Total CO2 (19-24) mmol/L ABG O2 Saturation (94-97) % ABG Hematocrit (34.0-46.0) % ABG Potassium (3.4-4.5) mmol/L ABG Ionized Calcium (4.5-5.3) mg/dL ABG Glucose (75-99) mg/dL Hemoglobin (13.0-17.5) gm/dL Chloride (98-107) mmol/L Carbon Dioxide (22-30) mmol/L BUN (9-20) mg/dL Glucose (74-99) mg/dL POC Glucose (mg/dL) 156 H 156 H (75-99) mg/dL Calcium (8.4-10.2) mg/dL Magnesium (1.6-2.3) mg/dL AST (17-59) U/L Alkaline Phosphatase (38-126) U/L Total Protein (6.3-8.2) g/dL Albumin (3.5-5.0) g/dL Arterial Blood Potassium (3.4-4.5) mmol/L Arterial Blood Glucose (75-99) mg/dL Crossmatch 05/19/21 05/19/21 05/19/21 Range/Units 18:05 18:10 18:21 WBC (3.8-10.6) k/uL RBC (4.30-5.90) m/uL Hgb (13.0-17.5) gm/dL Hct (39.0-53.0) % MCV (80.0-100.0) fL Plt Count (150-450) k/uL Neutrophils # (1.3-7.7) k/uL Lymphocytes # (1.0-4.8) k/uL PT 13.9 H (9.0-12.0) sec INR 1.3 H (<1.2) APTT 43.8 H (22.0-30.0) sec Fibrinogen 171 L (200-500) mg/dL ABG pH (7.35-7.45) ABG pCO2 (35-45) mmHg ABG pO2 (83-108) mmHg ABG HCO3 (21-25) mmol/L ABG Total CO2 (19-24) mmol/L ABG O2 Saturation (94-97) % ABG Hematocrit (34.0-46.0) % ABG Potassium (3.4-4.5) mmol/L ABG Ionized Calcium (4.5-5.3) mg/dL ABG Glucose (75-99) mg/dL Hemoglobin (13.0-17.5) gm/dL Chloride (98-107) mmol/L Carbon Dioxide (22-30) mmol/L BUN (9-20) mg/dL Glucose (74-99) mg/dL POC Glucose (mg/dL) 167 H (75-99) mg/dL Calcium (8.4-10.2) mg/dL Magnesium (1.6-2.3) mg/dL AST (17-59) U/L Alkaline Phosphatase (38-126) U/L Total Protein (6.3-8.2) g/dL Albumin (3.5-5.0) g/dL Arterial Blood Potassium (3.4-4.5) mmol/L Arterial Blood Glucose (75-99) mg/dL Crossmatch 05/19/21 05/19/21 05/19/21 Range/Units 19:00 19:51 20:47 WBC (3.8-10.6) k/uL RBC (4.30-5.90) m/uL Hgb (13.0-17.5) gm/dL Hct (39.0-53.0) % MCV (80.0-100.0) fL Plt Count (150-450) k/uL Neutrophils # (1.3-7.7) k/uL Lymphocytes # (1.0-4.8) k/uL PT (9.0-12.0) sec INR (<1.2) APTT (22.0-30.0) sec Fibrinogen (200-500) mg/dL ABG pH (7.35-7.45) ABG pCO2 (35-45) mmHg ABG pO2 (83-108) mmHg ABG HCO3 (21-25) mmol/L ABG Total CO2 (19-24) mmol/L ABG O2 Saturation (94-97) % ABG Hematocrit (34.0-46.0) % ABG Potassium (3.4-4.5) mmol/L ABG Ionized Calcium (4.5-5.3) mg/dL ABG Glucose (75-99) mg/dL Hemoglobin (13.0-17.5) gm/dL Chloride (98-107) mmol/L Carbon Dioxide (22-30) mmol/L BUN (9-20) mg/dL Glucose (74-99) mg/dL POC Glucose (mg/dL) 153 H 144 H 127 H (75-99) mg/dL Calcium (8.4-10.2) mg/dL Magnesium (1.6-2.3) mg/dL AST (17-59) U/L Alkaline Phosphatase (38-126) U/L Total Protein (6.3-8.2) g/dL Albumin (3.5-5.0) g/dL Arterial Blood Potassium (3.4-4.5) mmol/L Arterial Blood Glucose (75-99) mg/dL Crossmatch 05/19/21 05/19/21 05/19/21 Range/Units 23:15 23:15 23:15 WBC (3.8-10.6) k/uL RBC 2.60 L (4.30-5.90) m/uL Hgb 8.7 L (13.0-17.5) gm/dL Hct 26.2 L (39.0-53.0) % MCV 100.7 H (80.0-100.0) fL Plt Count 89 L (150-450) k/uL Neutrophils # (1.3-7.7) k/uL Lymphocytes # 0.5 L (1.0-4.8) k/uL PT 15.0 H (9.0-12.0) sec INR 1.4 H (<1.2) APTT 38.3 H (22.0-30.0) sec Fibrinogen 151 L (200-500) mg/dL ABG pH (7.35-7.45) ABG pCO2 (35-45) mmHg ABG pO2 (83-108) mmHg ABG HCO3 (21-25) mmol/L ABG Total CO2 (19-24) mmol/L ABG O2 Saturation (94-97) % ABG Hematocrit (34.0-46.0) % ABG Potassium (3.4-4.5) mmol/L ABG Ionized Calcium (4.5-5.3) mg/dL ABG Glucose (75-99) mg/dL Hemoglobin (13.0-17.5) gm/dL Chloride 110 H (98-107) mmol/L Carbon Dioxide 20 L (22-30) mmol/L BUN 21 H (9-20) mg/dL Glucose 150 H (74-99) mg/dL POC Glucose (mg/dL) (75-99) mg/dL Calcium 7.5 L (8.4-10.2) mg/dL Magnesium (1.6-2.3) mg/dL AST 100 H (17-59) U/L Alkaline Phosphatase 35 L (38-126) U/L Total Protein 4.8 L (6.3-8.2) g/dL Albumin 3.2 L (3.5-5.0) g/dL Arterial Blood Potassium (3.4-4.5) mmol/L Arterial Blood Glucose (75-99) mg/dL Crossmatch 05/19/21 05/20/21 05/20/21 Range/Units 23:15 00:03 00:04 WBC (3.8-10.6) k/uL RBC (4.30-5.90) m/uL Hgb (13.0-17.5) gm/dL Hct (39.0-53.0) % MCV (80.0-100.0) fL Plt Count (150-450) k/uL Neutrophils # (1.3-7.7) k/uL Lymphocytes # (1.0-4.8) k/uL PT (9.0-12.0) sec INR (<1.2) APTT (22.0-30.0) sec Fibrinogen (200-500) mg/dL ABG pH 7.29 L (7.35-7.45) ABG pCO2 (35-45) mmHg ABG pO2 204 H (83-108) mmHg ABG HCO3 (21-25) mmol/L ABG Total CO2 (19-24) mmol/L ABG O2 Saturation 99.4 H (94-97) % ABG Hematocrit (34.0-46.0) % ABG Potassium (3.4-4.5) mmol/L ABG Ionized Calcium (4.5-5.3) mg/dL ABG Glucose (75-99) mg/dL Hemoglobin (13.0-17.5) gm/dL Chloride (98-107) mmol/L Carbon Dioxide (22-30) mmol/L BUN (9-20) mg/dL Glucose (74-99) mg/dL POC Glucose (mg/dL) 158 H 156 H (75-99) mg/dL Calcium (8.4-10.2) mg/dL Magnesium (1.6-2.3) mg/dL AST (17-59) U/L Alkaline Phosphatase (38-126) U/L Total Protein (6.3-8.2) g/dL Albumin (3.5-5.0) g/dL Arterial Blood Potassium (3.4-4.5) mmol/L Arterial Blood Glucose (75-99) mg/dL Crossmatch 05/20/21 05/20/21 05/20/21 Range/Units 00:55 01:52 02:45 WBC (3.8-10.6) k/uL RBC (4.30-5.90) m/uL Hgb (13.0-17.5) gm/dL Hct (39.0-53.0) % MCV (80.0-100.0) fL Plt Count (150-450) k/uL Neutrophils # (1.3-7.7) k/uL Lymphocytes # (1.0-4.8) k/uL PT (9.0-12.0) sec INR (<1.2) APTT (22.0-30.0) sec Fibrinogen (200-500) mg/dL ABG pH (7.35-7.45) ABG pCO2 32 L (35-45) mmHg ABG pO2 133 H (83-108) mmHg ABG HCO3 (21-25) mmol/L ABG Total CO2 (19-24) mmol/L ABG O2 Saturation 98.4 H (94-97) % ABG Hematocrit (34.0-46.0) % ABG Potassium (3.4-4.5) mmol/L ABG Ionized Calcium (4.5-5.3) mg/dL ABG Glucose (75-99) mg/dL Hemoglobin (13.0-17.5) gm/dL Chloride (98-107) mmol/L Carbon Dioxide (22-30) mmol/L BUN (9-20) mg/dL Glucose (74-99) mg/dL POC Glucose (mg/dL) 117 H 123 H (75-99) mg/dL Calcium (8.4-10.2) mg/dL Magnesium (1.6-2.3) mg/dL AST (17-59) U/L Alkaline Phosphatase (38-126) U/L Total Protein (6.3-8.2) g/dL Albumin (3.5-5.0) g/dL Arterial Blood Potassium (3.4-4.5) mmol/L Arterial Blood Glucose (75-99) mg/dL Crossmatch 05/20/21 05/20/21 05/20/21 Range/Units 03:02 04:03 04:13 WBC (3.8-10.6) k/uL RBC 2.43 L (4.30-5.90) m/uL Hgb 8.0 L (13.0-17.5) gm/dL Hct 24.2 L (39.0-53.0) % MCV (80.0-100.0) fL Plt Count 84 L (150-450) k/uL Neutrophils # (1.3-7.7) k/uL Lymphocytes # 0.6 L (1.0-4.8) k/uL PT (9.0-12.0) sec INR (<1.2) APTT (22.0-30.0) sec Fibrinogen (200-500) mg/dL ABG pH (7.35-7.45) ABG pCO2 (35-45) mmHg ABG pO2 (83-108) mmHg ABG HCO3 (21-25) mmol/L ABG Total CO2 (19-24) mmol/L ABG O2 Saturation (94-97) % ABG Hematocrit (34.0-46.0) % ABG Potassium (3.4-4.5) mmol/L ABG Ionized Calcium (4.5-5.3) mg/dL ABG Glucose (75-99) mg/dL Hemoglobin (13.0-17.5) gm/dL Chloride (98-107) mmol/L Carbon Dioxide (22-30) mmol/L BUN (9-20) mg/dL Glucose (74-99) mg/dL POC Glucose (mg/dL) 123 H 110 H (75-99) mg/dL Calcium (8.4-10.2) mg/dL Magnesium (1.6-2.3) mg/dL AST (17-59) U/L Alkaline Phosphatase (38-126) U/L Total Protein (6.3-8.2) g/dL Albumin (3.5-5.0) g/dL Arterial Blood Potassium (3.4-4.5) mmol/L Arterial Blood Glucose (75-99) mg/dL Crossmatch 05/20/21 05/20/21 05/20/21 Range/Units 04:13 05:20 05:59 WBC (3.8-10.6) k/uL RBC (4.30-5.90) m/uL Hgb (13.0-17.5) gm/dL Hct (39.0-53.0) % MCV (80.0-100.0) fL Plt Count (150-450) k/uL Neutrophils # (1.3-7.7) k/uL Lymphocytes # (1.0-4.8) k/uL PT (9.0-12.0) sec INR (<1.2) APTT (22.0-30.0) sec Fibrinogen (200-500) mg/dL ABG pH (7.35-7.45) ABG pCO2 (35-45) mmHg ABG pO2 (83-108) mmHg ABG HCO3 (21-25) mmol/L ABG Total CO2 (19-24) mmol/L ABG O2 Saturation (94-97) % ABG Hematocrit (34.0-46.0) % ABG Potassium (3.4-4.5) mmol/L ABG Ionized Calcium (4.5-5.3) mg/dL ABG Glucose (75-99) mg/dL Hemoglobin (13.0-17.5) gm/dL Chloride 110 H (98-107) mmol/L Carbon Dioxide 19 L (22-30) mmol/L BUN 22 H (9-20) mg/dL Glucose 107 H (74-99) mg/dL POC Glucose (mg/dL) 109 H 136 H (75-99) mg/dL Calcium 7.7 L (8.4-10.2) mg/dL Magnesium 3.0 H (1.6-2.3) mg/dL AST 90 H (17-59) U/L Alkaline Phosphatase 30 L (38-126) U/L Total Protein 5.2 L (6.3-8.2) g/dL Albumin (3.5-5.0) g/dL Arterial Blood Potassium (3.4-4.5) mmol/L Arterial Blood Glucose (75-99) mg/dL Crossmatch 05/20/21 05/20/21 05/20/21 Range/Units 06:54 07:08 08:49 WBC (3.8-10.6) k/uL RBC (4.30-5.90) m/uL Hgb (13.0-17.5) gm/dL Hct (39.0-53.0) % MCV (80.0-100.0) fL Plt Count (150-450) k/uL Neutrophils # (1.3-7.7) k/uL Lymphocytes # (1.0-4.8) k/uL PT 14.8 H (9.0-12.0) sec INR 1.4 H (<1.2) APTT 37.8 H (22.0-30.0) sec Fibrinogen (200-500) mg/dL ABG pH (7.35-7.45) ABG pCO2 (35-45) mmHg ABG pO2 (83-108) mmHg ABG HCO3 (21-25) mmol/L ABG Total CO2 (19-24) mmol/L ABG O2 Saturation (94-97) % ABG Hematocrit (34.0-46.0) % ABG Potassium (3.4-4.5) mmol/L ABG Ionized Calcium (4.5-5.3) mg/dL ABG Glucose (75-99) mg/dL Hemoglobin (13.0-17.5) gm/dL Chloride (98-107) mmol/L Carbon Dioxide (22-30) mmol/L BUN (9-20) mg/dL Glucose (74-99) mg/dL POC Glucose (mg/dL) 129 H 106 H (75-99) mg/dL Calcium (8.4-10.2) mg/dL Magnesium (1.6-2.3) mg/dL AST (17-59) U/L Alkaline Phosphatase (38-126) U/L Total Protein (6.3-8.2) g/dL Albumin (3.5-5.0) g/dL Arterial Blood Potassium (3.4-4.5) mmol/L Arterial Blood Glucose (75-99) mg/dL Crossmatch 05/20/21 Range/Units 10:07 WBC (3.8-10.6) k/uL RBC (4.30-5.90) m/uL Hgb (13.0-17.5) gm/dL Hct (39.0-53.0) % MCV (80.0-100.0) fL Plt Count (150-450) k/uL Neutrophils # (1.3-7.7) k/uL Lymphocytes # (1.0-4.8) k/uL PT (9.0-12.0) sec INR (<1.2) APTT (22.0-30.0) sec Fibrinogen (200-500) mg/dL ABG pH (7.35-7.45) ABG pCO2 (35-45) mmHg ABG pO2 (83-108) mmHg ABG HCO3 (21-25) mmol/L ABG Total CO2 (19-24) mmol/L ABG O2 Saturation (94-97) % ABG Hematocrit (34.0-46.0) % ABG Potassium (3.4-4.5) mmol/L ABG Ionized Calcium (4.5-5.3) mg/dL ABG Glucose (75-99) mg/dL Hemoglobin (13.0-17.5) gm/dL Chloride (98-107) mmol/L Carbon Dioxide (22-30) mmol/L BUN (9-20) mg/dL Glucose (74-99) mg/dL POC Glucose (mg/dL) 116 H (75-99) mg/dL Calcium (8.4-10.2) mg/dL Magnesium (1.6-2.3) mg/dL AST (17-59) U/L Alkaline Phosphatase (38-126) U/L Total Protein (6.3-8.2) g/dL Albumin (3.5-5.0) g/dL Arterial Blood Potassium (3.4-4.5) mmol/L Arterial Blood Glucose (75-99) mg/dL Crossmatch Assessment and Plan Assessment: Postop day #1, status post resection of aortic valve tumor, mitral valve annuloplasty, tricuspid valve annuloplasty, and modified Butler-Maze procedure. The patient subsequently went back to the operating room, to evacuate large clots from the right chest cavity, and ensure no further bleeding. Routine postoperative ventilator management, status post extubation, on 05/20/2021, at 3:15 AM. History of chronic atrial fibrillation. History of hypertension. History of hyperlipidemia. History of mild CAD. Plan: Plan dated 05/19/2021. The patient FiO2 was dropped down to 50%, from 100%. The rate is increased from 14 breaths and minute up to 18 breaths a minute. The patient is currently on 2. 7 mcg/m of norepinephrine. The patient's getting propofol at 25 mcg/kg/m. An insulin drip is yet to be started. The patient is getting lactated Ringer's at 50 mL an hour. We will attempt to get the patient weaned and extubated as soon as possible. No additional recommendations are made at this time. We will continue to follow and make recommendations where appropriate. Plan dated 05/20/2021. The patient's doing well. He was explained early this morning. He is down to 2 L. He remains on lactated Ringer's, norepinephrine, dopamine, and amiodarone, as well as an insulin drip. We will continue to follow make recommendations where appropriate. Labs, x-rays, and medications are all reviewed. The patient's prognosis is guarded. She does seem to be doing very well currently. Recommend deep breathing, coughing, clearing of secretions, and hourly use of incentive spirometer. Time with Patient: Greater than 30
[2021-05-20 12:38] LABS: Glucose,Whole Blood 146 mg/dL (75-99)
[2021-05-20] MEDS: INSULIN REGULAR 100 UNIT in SODIUM CHLORIDE 0.9% 100 ML IV SCH (12:38)
[2021-05-20] MEDS: FERROUS SULFATE 325 MG TAB PO SCH (12:39)
[2021-05-20] MEDS: ASCORBIC ACID 500 MG TAB PO SCH (12:39)
[2021-05-20 13:03] LABS: INR 1.4 (<1.2); Partial Thromboplastin Time 32.1 sec (22.0-30.0); Prothrombin Time 14.1 sec (9.0-12.0)
[2021-05-20 13:13] LABS: Basophils % (A) 0 %; Eosinophils % (A) 0 %; HCT 21.1 % (39.0-53.0); Lymphocytes % (A) 10 %; MCH 33.2 pg (25.0-35.0); MCHC 33.1 g/dL (31.0-37.0); MCV 100.4 fL (80.0-100.0); Macrocytosis Slight; Mean Platelet Volume 8.8; Monocytes # (A) 0.7 k/uL (0-1.0); Monocytes % (A) 7 %; Neutrophils # (A) 8.5 k/uL (1.3-7.7); Neutrophils % (A) 82 %; Platelet Count 101 k/uL (150-450); RDW 14.7 % (11.5-15.5); WBC 10.4 k/uL (3.8-10.6)
[2021-05-20 13:57] LABS: Glucose,Whole Blood 117 mg/dL (75-99)
[2021-05-20] MEDS: LACTATED RINGERS 1,000 ML IV SCH (13:57)
--- NOTE | 2021-05-20 14:31 | CDI ---
Documentation Clarification Form Date: 05/20/2021 02:02:26 PM From: Kaylie GramajoCurielFRANNIE castro, CCDS Admit Date: 05/19/2021 05:41:00 AM Patient Name: Jerel Schwarz Visit Number: [id number] Discharge Date: ATTENTION: The Clinical Documentation Specialists (CDI) and [facility] Coding Staff appreciate your assistance in clarifying documentation. Please respond to the clarification below the line at the bottom and electronically sign. The CDI & [facility] Coding staff will review the response and follow-up if needed. Please note: Queries are made part of the Legal Health Record. If you have any questions, please contact the author of this message via ITS. Dr. Lazaro Aj: The patient underwent a Resection of Aortic Valve Tumor, Mitral Valve Annuloplasty, Tricuspic Annuloplasty, Modified Biatrial Butler Maze with Occlusion of Left Atrial Appendage with AtriCure Clip, Epi-aortic ultrasonography on 05/19. The patient was returned to the OR on 05/19 for Exploration for Post-Operative Hemorrhage and Mediastinal Washout Additional clarification is requested regarding the relationship, if any, that exists between the diagnosis and the procedure. Patients Admitting Diagnosis 05/19: Aortic valve tumor, mitral regurgitation, tricuspid regurgitation, chronic persistent atrial fibrillation. Post-Operative Diagnosis: Same Procedure performed 05/19: Resection of aortic valve tumor, mitral valve annuloplasty, tricuspid valve annuloplasty, modified biatrial Butler maze with occlusion of left atrial appendage with a 40 mm AtriCure clip, epi-aortic ultrasonography. History/Risk Factors per the Cardiothoracic preoperative consult on 05/10: Admitted in September 2020 with Sepsis, had BRIONNA to rule out Endocarditis, no Endocarditis was found. 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 Long history of Atrial Fibrillation >10 years on Toprol & Eliquis. History of Hypertension, Hypercholesterolemia, mild CAD, Sleep apnea, TIA Clinical Indicators: Presented on 05/19 for elective surgery as above. 05/19 Hgb 13.3, 11.1, 9.1, 8.7; 05/20: 8.0, 7.0. 05/19 Hct 39.1, 33.3, 27.3, 26.2; 05/20: 24.2, 21.1 Treatment 05/19: Blood transfusion: PRBCs. Routine vent management, Extubated 05/20 early am. IV Cefazolin, Lactated Ringers, IV Norepinephrine, Insulin drip. What relationship, if any, exists between the diagnosis of Postoperative Hemorrhage and the Exploration for same: [ ] Postoperative Hemorrhage is a complication of the surgical procedure [ ] Postoperative Hemorrhage is an expected outcome of the surgical procedure [ ] Postoperative Hemorrhage is related to patients co-morbid condition(s), please specify: & not a complication of the procedure [ ] Other, please specify: [ ] Unable to determine (Template Last Revised: April 2020) 05/24 CDI Query response documented in 05/23 Cardiothoracic Surgery Progress Note, Dr. Jodi Webber: POD #4 postoperative hemorrhage is a complication of the surgical procedure, with reexploration for postoperative hemorrhage and mediastinal washout. (CDS: CRYS) RAMONA
[2021-05-20 14:53] LABS: Glucose,Whole Blood 115 mg/dL (75-99)
[2021-05-20 15:57] LABS: Glucose,Whole Blood 109 mg/dL (75-99)
[2021-05-20 17:01] LABS: Glucose,Whole Blood 140 mg/dL (75-99)
[2021-05-20 18:21] LABS: Glucose,Whole Blood 129 mg/dL (75-99)
[2021-05-20] MEDS: DOPamine DRIP 800 MG in DEXTROSE/WATER 1 250ML.BAG IV SCH (18:22)
[2021-05-20 20:25] LABS: Glucose,Whole Blood 101 mg/dL (75-99)
[2021-05-20] MEDS: SENNOSIDES-DOCUSATE SODIUM 1 EACH TAB PO SCH (20:25)
[2021-05-20] MEDS: ATORVASTATIN 10 MG TAB PO SCH (20:26)
[2021-05-20 21:46] LABS: Glucose,Whole Blood 137 mg/dL (75-99)
[2021-05-20 23:02] LABS: Glucose,Whole Blood 136 mg/dL (75-99)
[2021-05-21 01:14] LABS: Glucose,Whole Blood 106 mg/dL (75-99)
[2021-05-21] MEDS: HYDROcodone/APAP 5-325MG 1 EACH TAB PO PRN ×4 (02:28→17:43)
[2021-05-21 02:40] LABS: Glucose,Whole Blood 129 mg/dL (75-99)
[2021-05-21 04:27] LABS: Glucose,Whole Blood 134 mg/dL (75-99)
[2021-05-21 04:54] LABS: Ionized Calcium 4.7 mg/dL (4.5-5.3)
[2021-05-21 04:58] LABS: Basophils % (A) 0 %; Eosinophils % (A) 0 %; HCT 21.3 % (39.0-53.0); Lymphocytes % (A) 7 %; MCH 32.4 pg (25.0-35.0); MCHC 32.3 g/dL (31.0-37.0); MCV 100.5 fL (80.0-100.0); Macrocytosis Slight; Mean Platelet Volume 8.8; Monocytes # (A) 0.6 k/uL (0-1.0); Monocytes % (A) 5 %; Neutrophils # (A) 11.5 k/uL (1.3-7.7); Neutrophils % (A) 87 %; Platelet Count 108 k/uL (150-450); RBC 2.11 m/uL (4.30-5.90); RDW 14.9 % (11.5-15.5); WBC 13.2 k/uL (3.8-10.6)
[2021-05-21 05:00] LABS: INR 1.2 (<1.2); Partial Thromboplastin Time 30.8 sec (22.0-30.0)
[2021-05-21 05:02] LABS: Albumin 3.5 g/dL (3.5-5.0); Calcium 8.4 mg/dL (8.4-10.2); HGB 6.9 gm/dL (13.0-17.5); Potassium 4.2 mmol/L (3.5-5.1); Total Bilirubin 0.9 mg/dL (0.2-1.3); Total Protein 5.3 g/dL (6.3-8.2)
[2021-05-21 06:08] LABS: Glucose,Whole Blood 133 mg/dL (75-99)
[2021-05-21] MEDS: NOREPINEPHRINE 4 MG in SODIUM CHLORIDE 0.9% 250 ML IV SCH (06:31)
[2021-05-21] MEDS: PANTOPRAZOLE 40 MG TABLET PO SCH (06:53)
[2021-05-21 06:54] LABS: Glucose,Whole Blood 119 mg/dL (75-99)
[2021-05-21] MEDS: IPRATROPIUM-ALBUTEROL 3 ML NEB INHALATION SCH ×4 (08:03→19:55)
[2021-05-21] MEDS: NON FORMULARY DRUG (Vitamin B Complex [Vitamin B Complex] 1 EACH Capsule) PO SCH (08:05)
[2021-05-21] MEDS: MULTIVITAMINS, THERA 1 EACH TAB PO SCH (08:17)
[2021-05-21] MEDS: AMIODARONE 200 MG TAB PO SCH ×2 (08:17→21:13)
[2021-05-21] MEDS ORDERED: guaiFENesin 600 MG TABLET.ER PO PRN (08:20)
--- NOTE | 2021-05-21 08:35 | XR ---
EXAMINATION TYPE: XR chest 1V portable DATE OF EXAM: 05/21/2021 COMPARISON: X-ray dated 05/20/2021 HISTORY: Postoperative cardiac surgery TECHNIQUE: Single frontal view of the chest is obtained. FINDINGS: Suspected marked gaseous distention of the stomach versus pneumoperitoneum with air-containing struct ure inferior to the right hemidiaphragm which could represent gaseous distention of the colon insinua edel between the liver and the diaphragm however pneumoperitoneum can't be excluded, please correlate clinically. Unchanged tubes and cardiopulmonary findings. IMPRESSION: Marked gaseous distention of the stomach and the colon versus pneumoperitoneum as described above, pl ease correlate clinically.
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
[2021-05-21] MEDS: HEPARIN SODIUM,PORCINE/PF 5,000 UNIT/0.5 ML SYRINGE SQ SCH ×2 (08:58→16:20)
[2021-05-21] MEDS: SIMETHICONE 80 MG CHEWABLE PO SCH ×4 (09:11→21:15)
--- NOTE | 2021-05-21 10:49 | P.PN ---
Subjective Progress Note Date: 05/21/21 Principal diagnosis: Status post thoracic surgery. Pulmonary consult dated 05/19/2021. 75-year-old male who I'm seeing today in room 250. The patient is postop day #0, status post resection of a aortic valve tumor, mitral valve annuloplasty, tricuspid valve annuloplasty, and a modified Butler-Maze procedure. The patient just arrived back in the intensive care unit. Blood gases done not yet been done. Chest x-ray is adequate. The patient is on volume assist control, rate 1 4, tidal volume 400, FiO2 of 100%, and PEEP of 10. Blood gases show pO2 365, pCO2 of 52, and pH is 7.28. The FiO2 was dropped down to 50%. The rate was increased from 14 to 18. The patient's currently on propofol at 25 mcg/kg/m, norepinephrine at 2.7 mcg/m, LR at 50 mL an hour, and a soon to be started insulin drip. He was done by Dr. Aj. Most recent labs include a white count of 13.7, hemoglobin 13.3, hematocrit 39.1, and platelet count 140,000. PT was 13 with an INR 1.2. PTT is 35.3. The patient apparently has a history of atrial fibrillation, hypertension, hyperlipidemia, and mild CAD. Progress note dated 05/20/2021. 75-year-old male, seen yesterday in consultation, and room 250. He is currently postop day #1, status post resection of aortic valve tumor, mitral valve gregoria uloplasty, tricuspid valve annuloplasty, and modified Butler-Maze procedure. The patient ended up going back to the operating room last night, because there is excess bleeding and output from the right-sided chest tube. Dr. Webber did the procedure. The right chest was evacuated of a large blood clot. The cautery was used to stop any bleeding that was occurring. The patient was extubated this morning. That was at 3:15 AM. Currently, he's on 2 L nasal cannula. He is getting lactated Ringer's at 50 mL an hour, norepinephrine at 0.03 mcg/kg/m, dopamine at 3 mcg/kg/m, amiodarone at 0.5 mg/m, and insulin at 4.5 units an hour. The patient is sitting up at the bedside. He looks recently stable. Laboratory data includes a white count 8.1, hemoglobin 8, hematocrit 24.2, and platelet count 84,000. PT 14.8. INR 1.4. Blood gases this morning prior to extubation revealed a pO2 of 133, pCO2 32, and pH is 7.43. Sodium 138, potassium 3.7, chlorides 110, CO2 19, anion gap 9, BUN 22, and creatinine 0.82. Chest x-ray shows postsurgical changes. There is some basilar atelectasis. Progress note dated 05/21/2021. 75-year-old male seen 2 days ago consultation. He's postop day #2, status post resection of aortic valve tumor, mitral valve annuloplasty, tricuspid valve annuloplasty, and modified Butler-Maze procedure. The patient ended up going back to the operating room, the day of surgery, for bleeding, and blood clots, and the right chest. Currently, the patient's doing recently well. He is on 3 L nasal cannula. He is getting lactated Ringer's at 50 mL an hour, and norepinephrine at 0.05 mcg/kg/m, dopamine at 3 mcg/kg/m, and insulin at 1.5 units an hour. His chest x-ray shows significant air in the stomach and intestinal tract, and I recommended either Reglan, Mylicon, or an NG tube. White count 13.2, hemoglobin 6.9, hematocrit 21.3, and platelet count 188,000. PTT is 30.8. Sodium is 134, potassium 4.2, chlorides 105, CO2 21, anion gap 8, BUN 30, and creatinine 1.19. Again, x-ray suggest marked gaseous distention of the stomach and colon. I don't believe there is a pneumoperitoneum. Objective - Vital Signs Vital signs: Vital Signs Temp 99.5 F 05/21/21 04:00 Pulse 80 05/21/21 08:12 Resp 30 H 05/21/21 07:00 BP 94/66 05/21/21 06:45 Pulse Ox 94 L 05/21/21 08:03 Intake & Output 05/20/21 05/21/21 05/21/21 18:59 06:59 18:59 Intake Total 1462.407 842.173 59 Output Total 835 685 50 Balance 627.407 157.173 9 Weight 96.3 kg 97.9 kg Intake: IV 399 678 59 Lactated Ringers 1,000 ml 220 570 50 @ 20 mls/hr IV .Q24H [facility] Rx#:[id number] cardiac index 80 pressure bag 99 108 9 Intake, IV Titration 463.407 164.173 Amount Amiodarone 450 mg In 66.4 Dextrose 5% in Water 250 ml @ 0.5 MG/MIN 16.667 mls/hr IV .Q15H [facility] Rx#: [id number] Calcium Gluconate in NaCl 100 1 gm In Saline 1 100ml. bag @ 100 mls/hr IVPB ONCE ONE Rx#:[id number] DOPamine DRIP 800 mg In 25.995 Dextrose/Water 1 250ml. bag @ 3 MCG/KG/MIN 5.164 mls/hr IV .Q24H [facility] Rx#: [id number] Insulin Regular 100 unit 32.846 23.492 In Sodium Chloride 0.9% 100 ml @ Per Protocol IV .Q0M [facility] Rx#:[id number] Norepinephrine 4 mg In 188.166 140.681 Sodium Chloride 0.9% 250 ml @ 0.05 MCG/KG/MIN 17. 488 mls/hr IV .[id number] [facility] Rx#:[id number] ceFAZolin 2 gm In Sodium 50 Chloride 0.9% 50 ml @ 100 mls/hr IVPB Q8HR [facility] Rx# :[id number] Oral 600 Blood Product 0 Rc Pheresis 2 As3 Unit 0 [id number] Output: Chest Tube Drainage 520 330 20 left and right pleural 140 150 20 mediastinal 380 180 0 Urine 315 355 30 Other: Voiding Method Indwelling Catheter Indwelling Catheter ABP, PAP, CO, CI - Last Documented Arterial Blood Pressure 114/55 Pulmonary Artery Pressure 35/14 Cardiac Output 4.9 Cardiac Index 2.6 - Exam No acute distress, sitting at the bedside, on 3 L nasal cannula. No respiratory distress, or use of accessory muscles. Saturations are 94%. HEENT examination is grossly unremarkable. Neck supple. Full range of motion. No adenopathy thyromegaly or neck vein distention. Cardiovascular examination reveals regular rhythm rate. S1-S2 normal. No S3 or S4. No discernible murmur noted. Heart rate 80 bpm. Lungs reveal mostly clear breath sounds. Breath sounds are equal bilaterally. Minimal scattered bilateral rhonchi noted. Abdomen mildly distended. Bowel sounds are noted. Extremities are intact. No cyanosis clubbing or edema. Skin is without rash or lesion. Neurologic examination is brief but nonfocal. - Labs CBC & Chem 7: 05/21/21 04:35 05/21/21 04:35 Labs: Abnormal Lab Results - Last 24 Hours (Table) 05/14/21 05/20/21 05/20/21 Range/Units 09:13 12:37 12:40 WBC (3.8-10.6) k/uL RBC 2.10 L (4.30-5.90) m/uL Hgb 7.0 L (13.0-17.5) gm/dL Hct 21.1 L (39.0-53.0) % MCV 100.4 H (80.0-100.0) fL Plt Count 101 L (150-450) k/uL Neutrophils # 8.5 H (1.3-7.7) k/uL PT (9.0-12.0) sec INR (<1.2) APTT (22.0-30.0) sec Sodium (137-145) mmol/L Carbon Dioxide (22-30) mmol/L BUN (9-20) mg/dL Glucose (74-99) mg/dL POC Glucose (mg/dL) 146 H (75-99) mg/dL AST (17-59) U/L Total Protein (6.3-8.2) g/dL Crossmatch See Detail 05/20/21 05/20/21 05/20/21 Range/Units 12:40 13:54 14:51 WBC (3.8-10.6) k/uL RBC (4.30-5.90) m/uL Hgb (13.0-17.5) gm/dL Hct (39.0-53.0) % MCV (80.0-100.0) fL Plt Count (150-450) k/uL Neutrophils # (1.3-7.7) k/uL PT 14.1 H (9.0-12.0) sec INR 1.4 H (<1.2) APTT 32.1 H (22.0-30.0) sec Sodium (137-145) mmol/L Carbon Dioxide (22-30) mmol/L BUN (9-20) mg/dL Glucose (74-99) mg/dL POC Glucose (mg/dL) 117 H 115 H (75-99) mg/dL AST (17-59) U/L Total Protein (6.3-8.2) g/dL Crossmatch 05/20/21 05/20/21 05/20/21 Range/Units 15:55 16:59 18:19 WBC (3.8-10.6) k/uL RBC (4.30-5.90) m/uL Hgb (13.0-17.5) gm/dL Hct (39.0-53.0) % MCV (80.0-100.0) fL Plt Count (150-450) k/uL Neutrophils # (1.3-7.7) k/uL PT (9.0-12.0) sec INR (<1.2) APTT (22.0-30.0) sec Sodium (137-145) mmol/L Carbon Dioxide (22-30) mmol/L BUN (9-20) mg/dL Glucose (74-99) mg/dL POC Glucose (mg/dL) 109 H 140 H 129 H (75-99) mg/dL AST (17-59) U/L Total Protein (6.3-8.2) g/dL Crossmatch 05/20/21 05/20/21 05/20/21 Range/Units 20:13 21:44 23:00 WBC (3.8-10.6) k/uL RBC (4.30-5.90) m/uL Hgb (13.0-17.5) gm/dL Hct (39.0-53.0) % MCV (80.0-100.0) fL Plt Count (150-450) k/uL Neutrophils # (1.3-7.7) k/uL PT (9.0-12.0) sec INR (<1.2) APTT (22.0-30.0) sec Sodium (137-145) mmol/L Carbon Dioxide (22-30) mmol/L BUN (9-20) mg/dL Glucose (74-99) mg/dL POC Glucose (mg/dL) 101 H 137 H 136 H (75-99) mg/dL AST (17-59) U/L Total Protein (6.3-8.2) g/dL Crossmatch 05/21/21 05/21/21 05/21/21 Range/Units 01:12 02:38 04:25 WBC (3.8-10.6) k/uL RBC (4.30-5.90) m/uL Hgb (13.0-17.5) gm/dL Hct (39.0-53.0) % MCV (80.0-100.0) fL Plt Count (150-450) k/uL Neutrophils # (1.3-7.7) k/uL PT (9.0-12.0) sec INR (<1.2) APTT (22.0-30.0) sec Sodium (137-145) mmol/L Carbon Dioxide (22-30) mmol/L BUN (9-20) mg/dL Glucose (74-99) mg/dL POC Glucose (mg/dL) 106 H 129 H 134 H (75-99) mg/dL AST (17-59) U/L Total Protein (6.3-8.2) g/dL Crossmatch 05/21/21 05/21/21 05/21/21 Range/Units 04:35 04:35 04:35 WBC 13.2 H (3.8-10.6) k/uL RBC 2.11 L (4.30-5.90) m/uL Hgb 6.9 L* (13.0-17.5) gm/dL Hct 21.3 L (39.0-53.0) % MCV 100.5 H (80.0-100.0) fL Plt Count 108 L (150-450) k/uL Neutrophils # 11.5 H (1.3-7.7) k/uL PT 13.0 H (9.0-12.0) sec INR 1.2 H (<1.2) APTT 30.8 H (22.0-30.0) sec Sodium 134 L (137-145) mmol/L Carbon Dioxide 21 L (22-30) mmol/L BUN 30 H (9-20) mg/dL Glucose 118 H (74-99) mg/dL POC Glucose (mg/dL) (75-99) mg/dL AST 75 H (17-59) U/L Total Protein 5.3 L (6.3-8.2) g/dL Crossmatch 05/21/21 05/21/21 Range/Units 06:06 06:52 WBC (3.8-10.6) k/uL RBC (4.30-5.90) m/uL Hgb (13.0-17.5) gm/dL Hct (39.0-53.0) % MCV (80.0-100.0) fL Plt Count (150-450) k/uL Neutrophils # (1.3-7.7) k/uL PT (9.0-12.0) sec INR (<1.2) APTT (22.0-30.0) sec Sodium (137-145) mmol/L Carbon Dioxide (22-30) mmol/L BUN (9-20) mg/dL Glucose (74-99) mg/dL POC Glucose (mg/dL) 133 H 119 H (75-99) mg/dL AST (17-59) U/L Total Protein (6.3-8.2) g/dL Crossmatch Assessment and Plan Assessment: Postop day #2, status post resection of aortic valve tumor, mitral valve annuloplasty, tricuspid valve annuloplasty, and modified Butler-Maze procedure. The patient subsequently went back to the operating room, to evacuate large clots in the right chest cavity, and ensure no further bleeding. Routine postoperative ventilator management, status post extubation, on 05/20/2021, at 3:15 AM. History of chronic atrial fibrillation. History of hypertension. History of hyperlipidemia. History of mild CAD. Plan: Plan dated 05/19/2021. The patient FiO2 was dropped down to 50%, from 100%. The rate is increased from 14 breaths and minute up to 18 breaths a minute. The patient is currently on 2.7 mcg/m of norepinephrine. The patient's getting propofol at 25 mcg/kg/m. An insulin drip is yet to be started. The patient is getting lactated Ringer's at 50 mL an hour. We will attempt to get the patient weaned and extubated as soon as possible. No additional recommendations are made at this time. We will continue to follow and make recommendations where appropriate. Plan dated 05/20/2021. The patient's doing well. He was explained early this morning. He is down to 2 L. He remains on lactated Ringer's, norepinephrine, dopamine, and amiodarone, as well as an insulin drip. We will continue to follow make recommendations where appropriate. Labs, x-rays, and medications are all reviewed. The patient's prognosis is guarded. She does seem to be doing very well currently. Recommend deep breathing, coughing, clearing of secretions, and hourly use of incentive spirometer. Plan dated 05/21/2021. Clinically, the patient looks reasonably well. There is a bit of concern about his x-ray. It appears that he has gaseous distention of the stomach and colon. It's causing some atelectasis at the bases, left greater than right. The patient continues with deep breathing, coughing, clearing of secretions. We also recommend hourly use of the incentive spirometer. The radiologist looked at the x-ray, question whether or not there was no pneumoperitoneum. I suppose if there is any concerns about this, a computed tomography scan should be done of the abdomen. He's clinically not behaving that way. Additional recommendations and suggestions are forthcoming. I will continue to follow make recommendations where appropriate. Time with Patient: Greater than 30
[2021-05-21 11:28] LABS: Glucose,Whole Blood 147 mg/dL (75-99)
[2021-05-21] MEDS: INSULIN ASPART (NovoLOG) 100 UNIT/ML VIAL SQ SCH ×3 (12:00→21:27)
[2021-05-21] MEDS: ASCORBIC ACID 500 MG TAB PO SCH (15:16)
[2021-05-21] MEDS: FERROUS SULFATE 325 MG TAB PO SCH (15:17)
[2021-05-21] MEDS: LACTATED RINGERS 1,000 ML IV SCH (15:18)
[2021-05-21 16:20] LABS: Glucose,Whole Blood 181 mg/dL (75-99)
[2021-05-21 16:37] LABS: Anisocytosis Slight; HCT 22.7 % (39.0-53.0); HGB 7.5 gm/dL (13.0-17.5); MCH 32.9 pg (25.0-35.0); MCHC 33.2 g/dL (31.0-37.0); MCV 98.9 fL (80.0-100.0); Macrocytosis Slight; Mean Platelet Volume 8.9; Platelet Count 102 k/uL (150-450); RBC 2.29 m/uL (4.30-5.90); RDW 16.3 % (11.5-15.5)
[2021-05-21] MEDS: ATORVASTATIN 10 MG TAB PO SCH (21:13)
[2021-05-21] MEDS: SENNOSIDES-DOCUSATE SODIUM 1 EACH TAB PO SCH (21:13)
[2021-05-21] MEDS: DOPamine DRIP 800 MG in DEXTROSE/WATER 1 250ML.BAG IV SCH (21:14)
[2021-05-21 21:23] LABS: Glucose,Whole Blood 136 mg/dL (75-99)
[2021-05-22] MEDS: HEPARIN SODIUM,PORCINE/PF 5,000 UNIT/0.5 ML SYRINGE SQ SCH ×3 (00:55→15:33)
[2021-05-22] MEDS: HYDROcodone/APAP 5-325MG 1 EACH TAB PO PRN (01:13)
--- NOTE | 2021-05-22 06:05 | XR ---
EXAMINATION TYPE: XR chest 1V portable DATE OF EXAM: 05/22/2021 CLINICAL HISTORY: Postoperative cardiac surgery. TECHNIQUE: Single AP portable upright view of the chest is obtained. COMPARISON: Chest x-ray from one day earlier and older studies FINDINGS: Interval removal of right internal jugular [place]-Ashley catheter. Persistent left basilar bam st tube and inferior right basilar chest tube.. Persistent cardiomegaly with sternal wires along with atrial appendage clipped and cardiac valvular r ing and single lead pacemaker device. Persistent elevated left hemidiaphragm with left greater than r ight bibasilar opacity favoring atelectasis and/or infiltrate. No visualized pneumothorax. Osseous st ructures are intact. IMPRESSION: No pneumothorax with bilateral chest tubes redemonstrated. Persistent cardiomegaly with g as distended stomach causing left hemidiaphragm elevation and left greater than right bibasilar atele ctasis are all redemonstrated. No significant change from one day earlier.
[2021-05-22] MEDS ORDERED: METOCLOPRAMIDE 5 MG/ML 2 ML VIAL IVP PRN (07:40)
[2021-05-22 07:44] LABS: Glucose,Whole Blood 134 mg/dL (75-99)
[2021-05-22] MEDS: INSULIN ASPART (NovoLOG) 100 UNIT/ML VIAL SQ SCH ×4 (07:48→20:30)
[2021-05-22 08:00] LABS: Basophils % (A) 0 %; Eosinophils % (A) 0 %; HCT 24.8 % (39.0-53.0); Lymphocytes % (A) 8 %; MCH 32.5 pg (25.0-35.0); MCHC 32.4 g/dL (31.0-37.0); MCV 100.3 fL (80.0-100.0); Macrocytosis Slight; Mean Platelet Volume 8.7; Monocytes # (A) 0.7 k/uL (0-1.0); Monocytes % (A) 6 %; Neutrophils # (A) 10.2 k/uL (1.3-7.7); Neutrophils % (A) 84 %; Platelet Count 122 k/uL (150-450); RBC 2.47 m/uL (4.30-5.90); RDW 15.5 % (11.5-15.5); WBC 12.1 k/uL (3.8-10.6)
[2021-05-22] MEDS: IPRATROPIUM-ALBUTEROL 3 ML NEB INHALATION SCH ×4 (08:03→21:14)
[2021-05-22 08:14] LABS: Albumin 3.5 g/dL (3.5-5.0); Calcium 8.8 mg/dL (8.4-10.2); Potassium 4.5 mmol/L (3.5-5.1); Total Bilirubin 1.2 mg/dL (0.2-1.3); Total Protein 5.8 g/dL (6.3-8.2)
[2021-05-22] MEDS: AMIODARONE 200 MG TAB PO SCH ×2 (08:59→21:07)
[2021-05-22] MEDS: PANTOPRAZOLE 40 MG TABLET PO SCH (08:59)
[2021-05-22] MEDS: MULTIVITAMINS, THERA 1 EACH TAB PO SCH (08:59)
[2021-05-22] MEDS: ASPIRIN 81 MG PO SCH (08:59)
[2021-05-22] MEDS: SIMETHICONE 80 MG CHEWABLE PO SCH ×4 (08:59→21:08)
[2021-05-22] MEDS: bisacodyL 10 MG SUPP RECTAL PRN (09:00)
[2021-05-22] MEDS: FUROSEMIDE 10 MG/ML 2 ML VIAL IV SCH ×2 (09:00→21:08)
[2021-05-22] MEDS: ACETAMINOPHEN TAB 325 MG TAB PO PRN ×2 (09:01→15:31)
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
[2021-05-22] MEDS: NON FORMULARY DRUG (Vitamin B Complex [Vitamin B Complex] 1 EACH Capsule) PO SCH (09:03)
[2021-05-22 09:16] LABS: Partial Thromboplastin Time 27.6 sec (22.0-30.0); Prothrombin Time 11.2 sec (9.0-12.0)
[2021-05-22 11:43] LABS: Glucose,Whole Blood 107 mg/dL (75-99)
[2021-05-22] MEDS: FERROUS SULFATE 325 MG TAB PO SCH (11:52)
[2021-05-22] MEDS: ASCORBIC ACID 500 MG TAB PO SCH (11:52)
--- NOTE | 2021-05-22 13:49 | P.PN ---
Subjective Progress Note Date: 05/22/21 Principal diagnosis: Status post thoracic surgery. Pulmonary consult dated 05/19/2021. 75-year-old male who I'm seeing today in room 250. The patient is postop day #0, status post resection of a aortic valve tumor, mitral valve annuloplasty, tricuspid valve annuloplasty, and a modified Butler-Maze procedure. The patient just arrived back in the intensive care unit. Blood gases done not yet been done. Chest x-ray is adequate. The patient is on volume assist control, rate 1 4, tidal volume 400, FiO2 of 100%, and PEEP of 10. Blood gases show pO2 365, pCO2 of 52, and pH is 7.28. The FiO2 was dropped down to 50%. The rate was increased from 14 to 18. The patient's currently on propofol at 25 mcg/kg/m, norepinephrine at 2.7 mcg/m, LR at 50 mL an hour, and a soon to be started insulin drip. He was done by Dr. Aj. Most recent labs include a white count of 13.7, hemoglobin 13.3, hematocrit 39.1, and platelet count 140,000. PT was 13 with an INR 1.2. PTT is 35.3. The patient apparently has a history of atrial fibrillation, hypertension, hyperlipidemia, and mild CAD. Progress note dated 05/20/2021. 75-year-old male, seen yesterday in consultation, and room 250. He is currently postop day #1, status post resection of aortic valve tumor, mitral valve gregoria uloplasty, tricuspid valve annuloplasty, and modified Butler-Maze procedure. The patient ended up going back to the operating room last night, because there is excess bleeding and output from the right-sided chest tube. Dr. Webber did the procedure. The right chest was evacuated of a large blood clot. The cautery was used to stop any bleeding that was occurring. The patient was extubated this morning. That was at 3:15 AM. Currently, he's on 2 L nasal cannula. He is getting lactated Ringer's at 50 mL an hour, norepinephrine at 0.03 mcg/kg/m, dopamine at 3 mcg/kg/m, amiodarone at 0.5 mg/m, and insulin at 4.5 units an hour. The patient is sitting up at the bedside. He looks recently stable. Laboratory data includes a white count 8.1, hemoglobin 8, hematocrit 24.2, and platelet count 84,000. PT 14.8. INR 1.4. Blood gases this morning prior to extubation revealed a pO2 of 133, pCO2 32, and pH is 7.43. Sodium 138, potassium 3.7, chlorides 110, CO2 19, anion gap 9, BUN 22, and creatinine 0.82. Chest x-ray shows postsurgical changes. There is some basilar atelectasis. Progress note dated 05/21/2021. 75-year-old male seen 2 days ago consultation. He's postop day #2, status post resection of aortic valve tumor, mitral valve annuloplasty, tricuspid valve annuloplasty, and modified Butler-Maze procedure. The patient ended up going back to the operating room, the day of surgery, for bleeding, and blood clots, and the right chest. Currently, the patient's doing recently well. He is on 3 L nasal cannula. He is getting lactated Ringer's at 50 mL an hour, and norepinephrine at 0.05 mcg/kg/m, dopamine at 3 mcg/kg/m, and insulin at 1.5 units an hour. His chest x-ray shows significant air in the stomach and intestinal tract, and I recommended either Reglan, Mylicon, or an NG tube. White count 13.2, hemoglobin 6.9, hematocrit 21.3, and platelet count 188,000. PTT is 30.8. Sodium is 134, potassium 4.2, chlorides 105, CO2 21, anion gap 8, BUN 30, and creatinine 1.19. Again, x-ray suggest marked gaseous distention of the stomach and colon. I don't believe there is a pneumoperitoneum. Progress note dated 05/22/2021. 75-year-old male again seen in room 250. He's postop day #3, status post resection of aortic valve tumor, mitral valve annuloplasty, tricuspid valve annuloplasty, and modified Butler-Maze procedure. Currently, the patient sitting upright in the chair. He is not receiving any IV fluids. He is on 2 L nasal cannula. He's feeling better today. His chest x-rays improved, although there is still some gastric distention. White count 12.1, hemoglobin 8, hematocrit 24.8, platelet count 122,000. Sodium 132, potassium 4.5, chlorides 103, CO2 21, anion gap 8, BUN 30, creatinine 1.17. Chest x-ray shows bilateral chest tubes. There is persistent cardiomegaly, and gas within the stomach. There is left hemidiaphragm elevation. Objective - Vital Signs Vital signs: Vital Signs Temp 98 F 05/22/21 12:27 Pulse 70 05/22/21 13:00 Resp 16 05/22/21 13:00 BP 100/57 05/22/21 13:00 Pulse Ox 99 05/22/21 13:00 Intake & Output 05/21/21 05/22/21 05/22/21 18:59 06:59 18:59 Intake Total 1145 602.525 289 Output Total 590 622 360 Balance 555 -19.475 -71 Weight 97.2 kg Intake: IV 570 312 49 Lactated Ringers 1,000 ml 450 240 40 @ 20 mls/hr IV .Q24H [facility] Rx#:[id number] cardiac index 30 pressure bag 90 72 9 Intake, IV Titration 190.525 Amount DOPamine DRIP 800 mg In 190.525 Dextrose/Water 1 250ml. bag @ 3 MCG/KG/MIN 5.164 mls/hr IV .Q24H [facility] Rx#: [id number] Oral 300 100 240 Blood Product 275 Rc Pheresis 2 As3 Unit 275 [id number] Output: Chest Tube Drainage 230 left and right pleural 160 mediastinal 70 Urine 360 622 360 Other: Voiding Method Indwelling Catheter Indwelling Catheter Indwelling Catheter # Bowel Movements 1 ABP, PAP, CO, CI - Last Documented Arterial Blood Pressure 87/40 Pulmonary Artery Pressure 37/14 Cardiac Output 6.3 Cardiac Index 3.3 - Exam No acute distress, sitting at the bedside, on 2 L nasal cannula. No respiratory distress, or use of accessory muscles. Saturations are 99%. HEENT examination is grossly unremarkable. Neck supple. Full range of motion. No adenopathy thyromegaly or neck vein distention. Cardiovascular examination reveals regular rhythm rate. S1-S2 normal. No S3 or S4. No discernible murmur noted. Heart rate 71 bpm. Lungs reveal mostly clear breath sounds. Breath sounds are equal bilaterally. Minimal scattered bilateral rhonchi noted. Abdomen mildly distended. Bowel sounds are noted. Extremities are intact. No cyanosis clubbing or edema. Skin is without rash or lesion. Neurologic examination is brief but nonfocal. - Labs CBC & Chem 7: 05/22/21 07:16 05/22/21 07:16 Labs: Abnormal Lab Results - Last 24 Hours (Table) 05/21/21 05/21/21 05/21/21 Range/Units 16:15 16:18 21:22 WBC 14.0 H (3.8-10.6) k/uL RBC 2.29 L (4.30-5.90) m/uL Hgb 7.5 L (13.0-17.5) gm/dL Hct 22.7 L (39.0-53.0) % MCV (80.0-100.0) fL RDW 16.3 H (11.5-15.5) % Plt Count 102 L (150-450) k/uL Neutrophils # (1.3-7.7) k/uL Sodium (137-145) mmol/L Carbon Dioxide (22-30) mmol/L BUN (9-20) mg/dL Glucose (74-99) mg/dL POC Glucose (mg/dL) 181 H 136 H (75-99) mg/dL AST (17-59) U/L Total Protein (6.3-8.2) g/dL 05/22/21 05/22/21 05/22/21 Range/Units 07:16 07:16 07:42 WBC 12.1 H (3.8-10.6) k/uL RBC 2.47 L (4.30-5.90) m/uL Hgb 8.0 L (13.0-17.5) gm/dL Hct 24.8 L (39.0-53.0) % MCV 100.3 H (80.0-100.0) fL RDW (11.5-15.5) % Plt Count 122 L (150-450) k/uL Neutrophils # 10.2 H (1.3-7.7) k/uL Sodium 132 L (137-145) mmol/L Carbon Dioxide 21 L (22-30) mmol/L BUN 30 H (9-20) mg/dL Glucose 131 H (74-99) mg/dL POC Glucose (mg/dL) 134 H (75-99) mg/dL AST 61 H (17-59) U/L Total Protein 5.8 L (6.3-8.2) g/dL 05/22/21 Range/Units 11:41 WBC (3.8-10.6) k/uL RBC (4.30-5.90) m/uL Hgb (13.0-17.5) gm/dL Hct (39.0-53.0) % MCV (80.0-100.0) fL RDW (11.5-15.5) % Plt Count (150-450) k/uL Neutrophils # (1.3-7.7) k/uL Sodium (137-145) mmol/L Carbon Dioxide (22-30) mmol/L BUN (9-20) mg/dL Glucose (74-99) mg/dL POC Glucose (mg/dL) 107 H (75-99) mg/dL AST (17-59) U/L Total Protein (6.3-8.2) g/dL Assessment and Plan Assessment: Postop day #3, status post resection of aortic valve tumor, mitral valve annuloplasty, tricuspid valve annuloplasty, and modified Butler-Maze procedure. The patient subsequently went back to the operating room, to evacuate large clots in the right chest cavity, and ensure no further bleeding. Routine postoperative ventilator management, status post extubation, on 05/20/2021, at 3:15 AM. Postoperative gaseous distention of the stomach and colon. History of chronic atrial fibrillation. History of hypertension. History of hyperlipidemia. History of mild CAD. Plan: Plan dated 05/19/2021. The patient FiO2 was dropped down to 50%, from 100%. The rate is increased from 14 breaths and minute up to 18 breaths a minute. The patient is currently on 2.7 mcg/m of norepinephrine. The patient's getting propofol at 25 mcg/kg/m. An insulin drip is yet to be started. The patient is getting lactated Ringer's at 50 mL an hour. We will attempt to get the patient weaned and extubated as soon as possible. No additional recommendations are made at this time. We will continue to follow and make recommendations where appropriate. Plan dated 05/20/2021. The patient's doing well. He was explained early this morning. He is down to 2 L. He remains on lactated Ringer's, norepinephrine, dopamine, and amiodarone, as well as an insulin drip. We will continue to follow make recommendations where appropriate. Labs, x-rays, and medications are all reviewed. The patient's prognosis is guarded. She does seem to be doing very well currently. Recommend deep breathing, coughing, clearing of secretions, and hourly use of incentive spirometer. Plan dated 05/21/2021. Clinically, the patient looks reasonably well. There is a bit of concern about his x-ray. It appears that he has gaseous distention of the stomach and colon. It's causing some atelectasis at the bases, left greater than right. The patient continues with deep breathing, coughing, clearing of secretions. We also recommend hourly use of the incentive spirometer. The radiologist looked at the x-ray, question whether or not there was no pneumoperitoneum. I suppose if there is any concerns about this, a computed tomography scan should be done of the abdomen. He's clinically not behaving that way. Additional recommendations and suggestions are forthcoming. I will continue to follow make recommendations where appropriate. Plan dated 05/22/2021. The patient's doing better today. The patient's on 2 L. He's not receiving any IV fluids. His respiratory status is improved. He continues on hourly use of the incentive spirometer. Labs, x-rays, and medications are all reviewed. We will continue to follow the patient make recommendations where appropriate. His abdominal issues have improved. Prognosis is guarded. Time with Patient: Less than 30
[2021-05-22 16:38] LABS: Glucose,Whole Blood 115 mg/dL (75-99)
[2021-05-22 20:09] LABS: Glucose,Whole Blood 160 mg/dL (75-99)
[2021-05-22] MEDS: SENNOSIDES-DOCUSATE SODIUM 1 EACH TAB PO SCH (21:08)
[2021-05-22] MEDS: ATORVASTATIN 10 MG TAB PO SCH (21:08)
[2021-05-23] MEDS: HEPARIN SODIUM,PORCINE/PF 5,000 UNIT/0.5 ML SYRINGE SQ SCH ×3 (01:05→15:58)
[2021-05-23] MEDS: ACETAMINOPHEN TAB 325 MG TAB PO PRN ×3 (03:10→16:56)
--- NOTE | 2021-05-23 06:57 | XR ---
EXAMINATION TYPE: XR chest 1V portable DATE OF EXAM: 05/23/2021 CLINICAL HISTORY: Postopen cardiac surgery progress study. TECHNIQUE: Single AP portable upright view of the chest is obtained. COMPARISON: Chest x-ray from one day earlier and older studies. FINDINGS: Interval removal of bilateral chest tubes. Persistent cardiomegaly with overlying sternal wires along with left atrial appendage clip and cardia c valvular ring prolonged with single lead pacemaker device are all redemonstrated. Persistent elevat ed left hemidiaphragm with left greater than right bibasilar opacity favoring atelectasis and/or infi ltrate. No visualized pneumothorax after bilateral chest tube removal. Degenerative change bilateral shoulders redemonstrated. IMPRESSION: No pneumothorax after bilateral chest tube removal. Persistent cardiomegaly and low lung volumes with left greater than right bibasilar atelectasis and/or acute infiltrates are all redemonst rated.
[2021-05-23 07:46] LABS: Glucose,Whole Blood 124 mg/dL (75-99)
[2021-05-23] MEDS: IPRATROPIUM-ALBUTEROL 3 ML NEB INHALATION SCH ×4 (07:53→19:16)
[2021-05-23 07:57] LABS: Basophils % (A) 0 %; Eosinophils # (A) 0.1 k/uL (0-0.7); Eosinophils % (A) 1 %; HCT 21.8 % (39.0-53.0); HGB 7.1 gm/dL (13.0-17.5); Lymphocytes # (A) 1.1 k/uL (1.0-4.8); Lymphocytes % (A) 11 %; MCH 32.8 pg (25.0-35.0); MCHC 32.7 g/dL (31.0-37.0); MCV 100.3 fL (80.0-100.0); Macrocytosis Slight; Mean Platelet Volume 8.8; Monocytes # (A) 0.7 k/uL (0-1.0); Monocytes % (A) 7 %; Neutrophils # (A) 7.9 k/uL (1.3-7.7); Neutrophils % (A) 79 %; Platelet Count 139 k/uL (150-450); RBC 2.17 m/uL (4.30-5.90); RDW 15.7 % (11.5-15.5)
[2021-05-23 08:06] LABS: INR 1.1 (<1.2); Partial Thromboplastin Time 29.8 sec (22.0-30.0); Prothrombin Time 11.5 sec (9.0-12.0)
[2021-05-23 08:07] LABS: Albumin 3.3 g/dL (3.5-5.0); Calcium 8.2 mg/dL (8.4-10.2); Potassium 3.8 mmol/L (3.5-5.1); Total Bilirubin 1.3 mg/dL (0.2-1.3); Total Protein 5.7 g/dL (6.3-8.2)
[2021-05-23] MEDS: ASPIRIN 81 MG PO SCH (08:19)
[2021-05-23] MEDS: FUROSEMIDE 10 MG/ML 2 ML VIAL IV SCH ×2 (08:19→22:10)
[2021-05-23] MEDS: AMIODARONE 200 MG TAB PO SCH ×2 (08:19→22:09)
[2021-05-23] MEDS: PANTOPRAZOLE 40 MG TABLET PO SCH (08:19)
[2021-05-23] MEDS: SIMETHICONE 80 MG CHEWABLE PO SCH ×4 (08:19→22:09)
[2021-05-23] MEDS: MULTIVITAMINS, THERA 1 EACH TAB PO SCH (08:19)
[2021-05-23] MEDS: INSULIN ASPART (NovoLOG) 100 UNIT/ML VIAL SQ SCH ×4 (08:28→22:20)
[2021-05-23] MEDS: NON FORMULARY DRUG (Vitamin B Complex [Vitamin B Complex] 1 EACH Capsule) PO SCH (08:32)
[2021-05-23] MEDS ORDERED: POTASSIUM CHLORIDE ER 20 MEQ TAB.ER PO SCH (09:00)
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
--- NOTE | 2021-05-23 10:48 | P.PN ---
Subjective Progress Note Date: 05/23/21 Principal diagnosis: Status post thoracic surgery. Pulmonary consult dated 05/19/2021. 75-year-old male who I'm seeing today in room 250. The patient is postop day #0, status post resection of a aortic valve tumor, mitral valve annuloplasty, tricuspid valve annuloplasty, and a modified Butler-Maze procedure. The patient just arrived back in the intensive care unit. Blood gases done not yet been done. Chest x-ray is adequate. The patient is on volume assist control, rate 1 4, tidal volume 400, FiO2 of 100%, and PEEP of 10. Blood gases show pO2 365, pCO2 of 52, and pH is 7.28. The FiO2 was dropped down to 50%. The rate was increased from 14 to 18. The patient's currently on propofol at 25 mcg/kg/m, norepinephrine at 2.7 mcg/m, LR at 50 mL an hour, and a soon to be started insulin drip. He was done by Dr. Aj. Most recent labs include a white count of 13.7, hemoglobin 13.3, hematocrit 39.1, and platelet count 140,000. PT was 13 with an INR 1.2. PTT is 35.3. The patient apparently has a history of atrial fibrillation, hypertension, hyperlipidemia, and mild CAD. Progress note dated 05/20/2021. 75-year-old male, seen yesterday in consultation, and room 250. He is currently postop day #1, status post resection of aortic valve tumor, mitral valve gregoria uloplasty, tricuspid valve annuloplasty, and modified Butler-Maze procedure. The patient ended up going back to the operating room last night, because there is excess bleeding and output from the right-sided chest tube. Dr. Webber did the procedure. The right chest was evacuated of a large blood clot. The cautery was used to stop any bleeding that was occurring. The patient was extubated this morning. That was at 3:15 AM. Currently, he's on 2 L nasal cannula. He is getting lactated Ringer's at 50 mL an hour, norepinephrine at 0.03 mcg/kg/m, dopamine at 3 mcg/kg/m, amiodarone at 0.5 mg/m, and insulin at 4.5 units an hour. The patient is sitting up at the bedside. He looks recently stable. Laboratory data includes a white count 8.1, hemoglobin 8, hematocrit 24.2, and platelet count 84,000. PT 14.8. INR 1.4. Blood gases this morning prior to extubation revealed a pO2 of 133, pCO2 32, and pH is 7.43. Sodium 138, potassium 3.7, chlorides 110, CO2 19, anion gap 9, BUN 22, and creatinine 0.82. Chest x-ray shows postsurgical changes. There is some basilar atelectasis. Progress note dated 05/21/2021. 75-year-old male seen 2 days ago consultation. He's postop day #2, status post resection of aortic valve tumor, mitral valve annuloplasty, tricuspid valve annuloplasty, and modified Butler-Maze procedure. The patient ended up going back to the operating room, the day of surgery, for bleeding, and blood clots, and the right chest. Currently, the patient's doing recently well. He is on 3 L nasal cannula. He is getting lactated Ringer's at 50 mL an hour, and norepinephrine at 0.05 mcg/kg/m, dopamine at 3 mcg/kg/m, and insulin at 1.5 units an hour. His chest x-ray shows significant air in the stomach and intestinal tract, and I recommended either Reglan, Mylicon, or an NG tube. White count 13.2, hemoglobin 6.9, hematocrit 21.3, and platelet count 188,000. PTT is 30.8. Sodium is 134, potassium 4.2, chlorides 105, CO2 21, anion gap 8, BUN 30, and creatinine 1.19. Again, x-ray suggest marked gaseous distention of the stomach and colon. I don't believe there is a pneumoperitoneum. Progress note dated 05/22/2021. 75-year-old male again seen in room 250. He's postop day #3, status post resection of aortic valve tumor, mitral valve annuloplasty, tricuspid valve annuloplasty, and modified Butler-Maze procedure. Currently, the patient sitting upright in the chair. He is not receiving any IV fluids. He is on 2 L nasal cannula. He's feeling better today. His chest x-rays improved, although there is still some gastric distention. White count 12.1, hemoglobin 8, hematocrit 24.8, platelet count 122,000. Sodium 132, potassium 4.5, chlorides 103, CO2 21, anion gap 8, BUN 30, creatinine 1.17. Chest x-ray shows bilateral chest tubes. There is persistent cardiomegaly, and gas within the stomach. There is left hemidiaphragm elevation. Progress note dated 05/23/2021. 75-year-old male seen again in room 250. His postoperative day #4, status post resection of aortic valve tumor, mitral valve annuloplasty, tricuspid valve annuloplasty, and modified Butler-Maze procedure. The patient's on 2 L of oxygen. He's not receiving any IV fluids. Laboratory data includes a white count 10, hemoglobin 7.1, hematocrit 21.8, and platelet count 139,000. Sodium 129, potassium 3.8, chlorides 101, CO2 22, anion gap 6, BUN 28, and creatinine 1.20. Calcium is 10.2. Albumin is 3.3. Chest x-ray continues to show persistent cardiomegaly, with low lung volumes, left greater than right. They're still gaseous distention of the stomach. Objective - Vital Signs Vital signs: Vital Signs Temp 98.6 F 05/23/21 08:00 Pulse 70 05/23/21 10:00 Resp 22 05/23/21 10:00 BP 114/55 05/23/21 10:00 Pulse Ox 96 05/23/21 10:00 Intake & Output 05/22/21 05/23/21 05/23/21 18:59 06:59 18:59 Intake Total 489 400 100 Output Total 590 795 375 Balance -101 -395 -275 Weight 95.8 kg Intake: IV 49 Lactated Ringers 1,000 ml 40 @ 20 mls/hr IV .Q24H [facility] Rx#:[id number] pressure bag 9 Oral 440 400 100 Output: Urine 590 795 375 Other: Voiding Method Indwelling Catheter Indwelling Catheter Indwelling Catheter # Bowel Movements 1 ABP, PAP, CO, CI - Last Documented Arterial Blood Pressure 87/40 Pulmonary Artery Pressure 37/14 Cardiac Output 6.3 Cardiac Index 3.3 - Exam No acute distress, sitting at the bedside, on 2 L nasal cannula. No respiratory distress, or use of accessory muscles. Saturations are 96 %. HEENT examination is grossly unremarkable. Neck supple. Full range of motion. No adenopathy thyromegaly or neck vein distention. Cardiovascular examination reveals regular rhythm rate. S1-S2 normal. No S3 or S4. No discernible murmur noted. Heart rate 70 bpm. Lungs reveal mostly clear breath sounds. Breath sounds are equal bilaterally. Minimal scattered bilateral rhonchi noted. Abdomen mildly distended. Bowel sounds are noted. Extremities are intact. No cyanosis clubbing or edema. Skin is without rash or lesion. Neurologic examination is brief but nonfocal. - Labs CBC & Chem 7: 05/23/21 07:41 05/23/21 07:41 Labs: Abnormal Lab Results - Last 24 Hours (Table) 05/22/21 05/22/21 05/22/21 Range/Units 11:41 16:36 20:07 RBC (4.30-5.90) m/uL Hgb (13.0-17.5) gm/dL Hct (39.0-53.0) % MCV (80.0-100.0) fL RDW (11.5-15.5) % Plt Count (150-450) k/uL Neutrophils # (1.3-7.7) k/uL Sodium (137-145) mmol/L BUN (9-20) mg/dL Glucose (74-99) mg/dL POC Glucose (mg/dL) 107 H 115 H 160 H (75-99) mg/dL Calcium (8.4-10.2) mg/dL AST (17-59) U/L Total Protein (6.3-8.2) g/dL Albumin (3.5-5.0) g/dL 05/23/21 05/23/21 05/23/21 Range/Units 07:41 07:41 07:44 RBC 2.17 L (4.30-5.90) m/uL Hgb 7.1 L (13.0-17.5) gm/dL Hct 21.8 L (39.0-53.0) % MCV 100.3 H (80.0-100.0) fL RDW 15.7 H (11.5-15.5) % Plt Count 139 L (150-450) k/uL Neutrophils # 7.9 H (1.3-7.7) k/uL Sodium 129 L (137-145) mmol/L BUN 28 H (9-20) mg/dL Glucose 133 H (74-99) mg/dL POC Glucose (mg/dL) 124 H (75-99) mg/dL Calcium 8.2 L (8.4-10.2) mg/dL AST 62 H (17-59) U/L Total Protein 5.7 L (6.3-8.2) g/dL Albumin 3.3 L (3.5-5.0) g/dL Assessment and Plan Assessment: Postop day #4, status post resection of aortic valve tumor, mitral valve annuloplasty, tricuspid valve annuloplasty, and modified Butler-Maze procedure. The patient subsequently went back to the operating room, to evacuate large clots in the right chest cavity, and ensure no further bleeding. Routine postoperative ventilator management, status post extubation, on 05/20/2021, at 3:15 AM. Postoperative gaseous distention of the stomach and colon. History of chronic atrial fibrillation. History of hypertension. History of hyperlipidemia. History of mild CAD. Plan: Plan dated 05/19/2021. The patient FiO2 was dropped down to 50%, from 100%. The rate is increased from 14 breaths and minute up to 18 breaths a minute. The patient is currently on 2.7 mcg/m of norepinephrine. The patient's getting propofol at 25 mcg/kg/m. An insulin drip is yet to be started. The patient is getting lactated Ringer's at 50 mL an hour. We will attempt to get the patient weaned and extubated as soon as possible. No additional recommendations are made at this time. We will continue to follow and make recommendations where appropriate. Plan dated 05/20/2021. The patient's doing well. He was explained early this morning. He is down to 2 L. He remains on lactated Ringer's, norepinephrine, dopamine, and amiodarone, as well as an insulin drip. We will continue to follow make recommendations where appropriate. Labs, x-rays, and medications are all reviewed. The patient's prognosis is guarded. She does seem to be doing very well currently. Recommend deep breathing, coughing, clearing of secretions, and hourly use of incentive spirometer. Plan dated 05/21/2021. Clinically, the patient looks reasonably well. There is a bit of concern about his x-ray. It appears that he has gaseous distention of the stomach and colon. It's causing some atelectasis at the bases, left greater than right. The patient continues with deep breathing, coughing, clearing of secretions. We also recommend hourly use of the incentive spirometer. The radiologist looked at the x-ray, question whether or not there was no pneumoperitoneum. I suppose if there is any concerns about this, a computed tomography scan should be done of the abdomen. He's clinically not behaving that way. Additional recommendations and suggestions are forthcoming. I will continue to follow make recommendations where appropriate. Plan dated 05/22/2021. The patient's doing better today. The patient's on 2 L. He's not receiving any IV fluids. His respiratory status is improved. He continues on hourly use of the incentive spirometer. Labs, x-rays, and medications are all reviewed. We will continue to follow the patient make recommendations where appropriate. His abdominal issues have improved. Prognosis is guarded. Plan dated 05/23/2021. The patient appears to be doing a bit better today. His postoperative day #4. He's only on 2 L nasal cannula. He's not receiving any IV fluids. Chest x-ray continues to show bibasilar left greater than right atelectasis. There is still gaseous distention of the stomach. The patient has had a good bowel movement. We will continue to follow make recommendations were appropriate. Prognosis is guarded. Labs, x-rays, and medications are all reviewed. Time with Patient: Less than 30
[2021-05-23 11:24] LABS: Glucose,Whole Blood 133 mg/dL (75-99)
[2021-05-23] MEDS: FERROUS SULFATE 325 MG TAB PO SCH (12:26)
[2021-05-23] MEDS: ASCORBIC ACID 500 MG TAB PO SCH (12:26)
[2021-05-23 16:52] LABS: Glucose,Whole Blood 132 mg/dL (75-99)
[2021-05-23 20:25] LABS: Glucose,Whole Blood 135 mg/dL (75-99)
[2021-05-23] MEDS ORDERED: FUROSEMIDE 10 MG/ML 4 ML VIAL IV SCH (21:00)
[2021-05-23] MEDS: SENNOSIDES-DOCUSATE SODIUM 1 EACH TAB PO SCH (22:08)
[2021-05-23] MEDS: ATORVASTATIN 10 MG TAB PO SCH (22:09)
[2021-05-24] MEDS: HEPARIN SODIUM,PORCINE/PF 5,000 UNIT/0.5 ML SYRINGE SQ SCH ×3 (00:34→15:08)
[2021-05-24 03:23] LABS: Anisocytosis Slight; Basophils % (A) 0 %; Eosinophils # (A) 0.1 k/uL (0-0.7); Eosinophils % (A) 1 %; HCT 20.3 % (39.0-53.0); Lymphocytes # (A) 1.1 k/uL (1.0-4.8); Lymphocytes % (A) 12 %; MCH 33.5 pg (25.0-35.0); MCHC 32.7 g/dL (31.0-37.0); MCV 102.4 fL (80.0-100.0); Macrocytosis Moderate; Mean Platelet Volume 8.1; Monocytes # (A) 0.6 k/uL (0-1.0); Monocytes % (A) 7 %; Neutrophils # (A) 7.3 k/uL (1.3-7.7); Neutrophils % (A) 79 %; Platelet Count 179 k/uL (150-450); RBC 1.98 m/uL (4.30-5.90); RDW 16.7 % (11.5-15.5); WBC 9.3 k/uL (3.8-10.6)
[2021-05-24 03:29] LABS: HGB 6.6 gm/dL (13.0-17.5)
[2021-05-24 03:41] LABS: Albumin 3.3 g/dL (3.5-5.0); Calcium 7.9 mg/dL (8.4-10.2); Potassium 3.6 mmol/L (3.5-5.1); Total Bilirubin 1.2 mg/dL (0.2-1.3); Total Protein 5.7 g/dL (6.3-8.2)
[2021-05-24] MEDS ORDERED: POTASSIUM CHLORIDE ER 20 MEQ TAB.ER PO SCH ×2 (05:00→20:00)
[2021-05-24 06:39] LABS: Glucose,Whole Blood 137 mg/dL (75-99)
[2021-05-24] MEDS: INSULIN ASPART (NovoLOG) 100 UNIT/ML VIAL SQ SCH ×4 (06:47→21:03)
[2021-05-24] MEDS: PANTOPRAZOLE 40 MG TABLET PO SCH (06:47)
--- NOTE | 2021-05-24 06:50 | CT ---
EXAM: CT Head Without Intravenous Contrast CLINICAL HISTORY: ITS.REASON CT Reason: Fall TECHNIQUE: Axial computed tomography images of the head/brain without intravenous contrast. CTDI is 49.1 mGy and DLP is 1131 mGy-cm. This CT exam was performed using one or more of the following dose reduction techniques: automated exposure control, adjustment of the mA and/or kV according to patient size, and/or use of iterative reconstruction technique. COMPARISON: No relevant prior studies available. FINDINGS: Brain: No intracranial hemorrhage. No significant mass effect. Underlying parenchymal involutional changes and periventricular deep white matter hypodense changes noted. Asymmetric subacute to chronic appearing hypodensity involving the inferior right frontal region. Ventricles: No midline shift or significant ventriculomegaly. Bones/joints: Unremarkable. No acute fracture. Soft tissues: No significant overlying soft tissue abnormality identified. No radiopaque foreign body. Sinuses: Unremarkable as visualized. No acute sinusitis. Mastoid air cells: Unremarkable as visualized. No mastoid effusion. IMPRESSION: No acute intracranial process identified. Chronic underlying findings, as detailed above.
[2021-05-24] MEDS: IPRATROPIUM-ALBUTEROL 3 ML NEB INHALATION SCH ×4 (07:08→20:31)
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
--- NOTE | 2021-05-24 08:46 | XR ---
EXAMINATION TYPE: XR chest 2V DATE OF EXAM: 05/24/2021 COMPARISON: Chest x-ray from one day earlier and older studies. HISTORY: Post open cardiac surgery. TECHNIQUE: Frontal and lateral views of the chest are obtained. FINDINGS: Persistent cardiomegaly with overlying sternal wires along with left atrial appendage clip and cardia c valvular ring prolonged with single lead pacemaker device are all redemonstrated. Persistent left g reater than right bibasilar opacity. No visualized pneumothorax bilaterally. Degenerative change bila teral shoulders redemonstrated. IMPRESSION: Persistent cardiomegaly and mild central vascular congestion with low lung volumes with l eft greater than right bibasilar atelectasis and/or acute infiltrates are all redemonstrated. No sign ificant change from one day earlier.
[2021-05-24] MEDS: NON FORMULARY DRUG (Vitamin B Complex [Vitamin B Complex] 1 EACH Capsule) PO SCH (08:52)
[2021-05-24] MEDS: AMIODARONE 200 MG TAB PO SCH ×2 (08:56→21:10)
[2021-05-24] MEDS: MULTIVITAMINS, THERA 1 EACH TAB PO SCH (08:57)
[2021-05-24] MEDS: ASPIRIN 81 MG PO SCH (08:57)
[2021-05-24] MEDS: SIMETHICONE 80 MG CHEWABLE PO SCH ×3 (08:57→17:01)
[2021-05-24] MEDS: FUROSEMIDE 10 MG/ML 2 ML VIAL IV SCH ×2 (11:15→21:10)
[2021-05-24] MEDS ORDERED: FUROSEMIDE 10 MG/ML 4 ML VIAL IV STA (11:16)
[2021-05-24 11:17] LABS: Glucose,Whole Blood 121 mg/dL (75-99)
[2021-05-24] MEDS: ASCORBIC ACID 500 MG TAB PO SCH (11:38)
[2021-05-24] MEDS: FERROUS SULFATE 325 MG TAB PO SCH (11:38)
--- NOTE | 2021-05-24 13:18 | P.PN ---
Subjective Progress Note Date: 05/24/21 A 75-year-old male patient is currently postop day #6. The patient underwent a aortic valve tumor resection along with a repair of a mitral regurgitation and tricuspid valve regurgitation with mitral valve annuloplasty and tricuspid valve annuloplasty and modified by 8 she'll Butler-Maze procedure. Overnight, the patient did have some confusion. He had about to fall and he had a trauma to his head. This morning, he seems to be more appropriate although I been told that the patient has been having episodes of confusion. Patient is moving all 4 extremities without any limitation. He was aware of his location and he was oriented to self and place. No focal neurological deficits. No headaches to no loss of consciousness. He remains on oxygen at 2 L per minute nasal cannula. He is using incentive spirometer pulling approximately 1500 on his I asked. Otherwise, his repeat chest x-ray from today shows cardiomegaly and CHF and the patient has a pacemaker in place. Current cardiac rhythm rate of 70. He remains on 2 L about 2 by nasal cannula. CAT scan of the brain showed no acute abnormalities. The white cell count at 6.6 and the patient is going to be transfused with a unit of packed RBC. No hematoma formation and no signs of any active bleeding. Platelet count is at 179 and the patient has a white cell count 9.3. He is at 25 with a creatinine of 1.1. No other significant events overnight. Objective - Vital Signs Vital signs: Vital Signs Temp 99.2 F 05/24/21 11:38 Pulse 70 05/24/21 12:34 Resp 22 05/24/21 12:00 BP 126/81 05/24/21 12:00 Pulse Ox 99 05/24/21 12:00 Intake & Output 05/23/21 05/24/21 05/24/21 18:59 06:59 18:59 Intake Total 520 310 Output Total 690 300 Balance -170 -300 310 Intake: Oral 520 Blood Product 310 Rc As-1 Unit 0 [id number] Rc As-1 Unit 310 [id number] Output: Urine 690 300 Other: Voiding Method Indwelling Catheter Urinal Bedside Commode # Voids 1 1 1 # Bowel Movements 1 ABP, PAP, CO, CI - Last Documented Arterial Blood Pressure 87/40 Pulmonary Artery Pressure 37/14 Cardiac Output 6.3 Cardiac Index 3.3 - Exam CONSTITUTIONAL: Laying in bed in the intensive care unit, appears comfortable, cooperative, no apparent acute distress. HEENT: Neck is supple, no JVD, no lymphadenopathy. RESPIRATORY: Lungs sounds essentially clear throughout, diminished to his bilat eral bases with few scattered crackles. Respirations are symmetrical and nonlabored. Currently on 2 L nasal cannula with oxygen saturations 96%. Able to achieve 1500 mL on his incentive spirometry. Strong cough. Bedside telemetry shows paced rhythm 70 BPM. CARDIOVASCULAR: Regular rhythm and rate. S1 and S2 present, negative for S3, gallop or murmur. Sternum is stable. Palpable peripheral pulses bilaterally. No calf pain or tenderness noted. Heart hugger in place with patient demonstr ating appropriate use with encouragement. Knee-high SONIA hose and sequential compression devices in place to his bilateral lower extremities. GASTROINTESTINAL: Abdomen soft, nontender, and slightly distended. Active bowel sounds present 4 quadrants. Tolerating clear liquid diet. No guarding or rigidity. Last bowel movement was on 05/22/2021. GENITOURINARY: Continues to void. Urine output 200 mL in the last 8 hours with reports of 2 incontinent episodes. INTEGUMENTARY: Skin is warm and dry with no evidence of clubbing or cyanosis. Midline sternal incision clean dry and well approximated, covered with dry intact dressing. NEUROLOGIC: Cranial nerves II through XII intact. No focal deficits. MUSKULOSKELETAL: Able to move all extremities, strength equal bilaterally, generalized weakness. PSYCHIATRIC: Alert and oriented to person place and time, appropriate affect, intact judgment and insight. INVASIVE LINES AND TUBES: Atrial and ventricular epicardial pacemaker wires present, and grounded. - Labs CBC & Chem 7: 05/24/21 02:59 05/24/21 02:59 Labs: Abnormal Lab Results - Last 24 Hours (Table) 05/14/21 05/22/21 05/23/21 Range/Units 09:13 07:16 16:50 RBC (4.30-5.90) m/uL Hgb (13.0-17.5) gm/dL Hct (39.0-53.0) % MCV (80.0-100.0) fL RDW (11.5-15.5) % Sodium (137-145) mmol/L Carbon Dioxide (22-30) mmol/L BUN (9-20) mg/dL Glucose (74-99) mg/dL POC Glucose (mg/dL) 132 H (75-99) mg/dL Calcium (8.4-10.2) mg/dL AST (17-59) U/L Total Protein (6.3-8.2) g/dL Albumin (3.5-5.0) g/dL Crossmatch See Detail See Detail 05/23/21 05/24/21 05/24/21 Range/Units 20:24 02:59 02:59 RBC 1.98 L (4.30-5.90) m/uL Hgb 6.6 L* (13.0-17.5) gm/dL Hct 20.3 L (39.0-53.0) % MCV 102.4 H (80.0-100.0) fL RDW 16.7 H (11.5-15.5) % Sodium 131 L (137-145) mmol/L Carbon Dioxide 19 L (22-30) mmol/L BUN 25 H (9-20) mg/dL Glucose 122 H (74-99) mg/dL POC Glucose (mg/dL) 135 H (75-99) mg/dL Calcium 7.9 L (8.4-10.2) mg/dL AST 65 H (17-59) U/L Total Protein 5.7 L (6.3-8.2) g/dL Albumin 3.3 L (3.5-5.0) g/dL Crossmatch 05/24/21 05/24/21 Range/Units 06:38 11:15 RBC (4.30-5.90) m/uL Hgb (13.0-17.5) gm/dL Hct (39.0-53.0) % MCV (80.0-100.0) fL RDW (11.5-15.5) % Sodium (137-145) mmol/L Carbon Dioxide (22-30) mmol/L BUN (9-20) mg/dL Glucose (74-99) mg/dL POC Glucose (mg/dL) 137 H 121 H (75-99) mg/dL Calcium (8.4-10.2) mg/dL AST (17-59) U/L Total Protein (6.3-8.2) g/dL Albumin (3.5-5.0) g/dL Crossmatch Assessment and Plan Plan: 1 postop day #6 following mitral valve and tricuspid valve annuloplasty and resection of an aortic valve tumor. The patient is hemodynamically stable. The patient is not having any respiratory distress at this point in time. 2 post thoracotomy, currently on 2 L about 2 by nasal cannula 3 chronic versus atrial fibrillation, maintained on antibiotic ventilation with Eliquis 4 confusion/delirium with a fall, no evidence of any acute LAUNDRY WASHER injury and a CAT scan of the brain has been negative 5 acute anemia, hemoglobin is down to 6.6, expected outcome of surgery.. 6 nonobstructive coronary artery disease, symptomatically at this point in time 7 hypertension 8 hyperlipidemia 9 obstructive sleep apnea, not using any form of CPAP therapy 10 history of closed head injury back in 2010 12 history of permanent pacemaker insertion May 2020 Plan Continue using incentive spirometer pulm status is stable Monitor mental status Computed tomography scan of Brain Is Negative Cardiac rhythm is placed Proceed with transfusing unit of packed RBCs Monitor hemoglobin The patient remains on Lasix 20 mg IV every 12 hours and this will be continued Remove the Betancourt catheter and bladder scan Continue amiodarone Keep the patient on aspirin, the patient is also on subcu heparin for DVT prophylaxis. We'll monitor the patient has ICU for another 24 hours
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
[2021-05-24 17:00] LABS: Glucose,Whole Blood 136 mg/dL (75-99)
[2021-05-24] MEDS ORDERED: Potassium Replacement Protocol 1 EACH MISC MISCELLANE PRN (19:05)
[2021-05-24 20:49] LABS: Glucose,Whole Blood 106 mg/dL (75-99)
[2021-05-24] MEDS: SENNOSIDES-DOCUSATE SODIUM 1 EACH TAB PO SCH (21:10)
[2021-05-24] MEDS: ATORVASTATIN 10 MG TAB PO SCH (21:10)
[2021-05-25] MEDS: HEPARIN SODIUM,PORCINE/PF 5,000 UNIT/0.5 ML SYRINGE SQ SCH ×3 (00:37→17:42)
[2021-05-25 06:46] LABS: Glucose,Whole Blood 110 mg/dL (75-99)
[2021-05-25] MEDS: INSULIN ASPART (NovoLOG) 100 UNIT/ML VIAL SQ SCH ×4 (06:47→20:50)
[2021-05-25 06:52] LABS: Anisocytosis Slight; Basophils % (A) 0 %; Eosinophils # (A) 0.1 k/uL (0-0.7); Eosinophils % (A) 1 %; HCT 24.6 % (39.0-53.0); Lymphocytes # (A) 0.8 k/uL (1.0-4.8); Lymphocytes % (A) 8 %; MCH 33.4 pg (25.0-35.0); MCHC 33.7 g/dL (31.0-37.0); MCV 99.3 fL (80.0-100.0); Macrocytosis Slight; Mean Platelet Volume 7.8; Monocytes # (A) 0.8 k/uL (0-1.0); Monocytes % (A) 7 %; Neutrophils # (A) 8.6 k/uL (1.3-7.7); Neutrophils % (A) 82 %; Platelet Count 212 k/uL (150-450); RBC 2.48 m/uL (4.30-5.90); RDW 16.5 % (11.5-15.5); WBC 10.5 k/uL (3.8-10.6)
[2021-05-25 06:57] LABS: HGB 8.3 gm/dL (13.0-17.5)
[2021-05-25 07:01] LABS: INR 1.1 (<1.2); Prothrombin Time 11.6 sec (9.0-12.0)
[2021-05-25] MEDS: PANTOPRAZOLE 40 MG TABLET PO SCH (07:01)
[2021-05-25 07:10] LABS: ALT 39 U/L (4-49); AST 66 U/L (17-59); African American GFR (CKD) >90 (>60 ml/min/1.73 sqM); Alkaline Phosphatase 70 U/L (38-126); Anion Gap 8 mmol/L; Blood Urea Nitrogen 18 mg/dL (9-20); Calcium 7.9 mg/dL (8.4-10.2); Carbon Dioxide 22 mmol/L (22-30); Chloride 106 mmol/L (98-107); Glucose 102 mg/dL (74-99); Non-African American GFR(CKD) 86 (>60 ml/min/1.73 sqM); Potassium 3.7 mmol/L (3.5-5.1); Sodium 136 mmol/L (137-145); Total Bilirubin 1.9 mg/dL (0.2-1.3); Total Protein 5.7 g/dL (6.3-8.2)
[2021-05-25] MEDS ORDERED: POTASSIUM CHLORIDE ER 20 MEQ TAB.ER PO SCH (08:00)
--- NOTE | 2021-05-25 08:06 | XR ---
EXAMINATION TYPE: XR chest 1V portable DATE OF EXAM: 05/25/2021 COMPARISON: 05/24/2021 INDICATION: Postop cardiac surgery TECHNIQUE: Single frontal view of the chest is obtained. FINDINGS: The heart size is enlarged. The pulmonary vasculature is prominent. There is mild diffuse increased lung markings. Correlate for volume overload or congestive heart fail ure Pacemaker overlies left chest. Sternotomy wires and cardiac valve surgery are evident. IMPRESSION: 1. Correlate for volume overload or early congestive heart failure.
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
[2021-05-25] MEDS: IPRATROPIUM-ALBUTEROL 3 ML NEB INHALATION SCH ×4 (09:38→19:11)
[2021-05-25] MEDS: NON FORMULARY DRUG (Vitamin B Complex [Vitamin B Complex] 1 EACH Capsule) PO SCH (09:54)
[2021-05-25] MEDS: AMIODARONE 200 MG TAB PO SCH ×2 (09:54→21:00)
[2021-05-25] MEDS: ASPIRIN 81 MG PO SCH (09:54)
[2021-05-25] MEDS: FUROSEMIDE 10 MG/ML 2 ML VIAL IV SCH ×2 (09:55→21:00)
[2021-05-25 11:29] LABS: Glucose,Whole Blood 121 mg/dL (75-99)
[2021-05-25] MEDS: ASCORBIC ACID 500 MG TAB PO SCH (11:38)
[2021-05-25] MEDS: MULTIVITAMINS, THERA 1 EACH TAB PO SCH (11:38)
[2021-05-25] MEDS: FERROUS SULFATE 325 MG TAB PO SCH (11:41)
--- NOTE | 2021-05-25 12:10 | P.PN ---
Subjective Progress Note Date: 05/25/21 A 75-year-old male patient is currently postop day #6. The patient underwent a aortic valve tumor resection along with a repair of a mitral regurgitation and tricuspid valve regurgitation with mitral valve annuloplasty and tricuspid valve annuloplasty and modified by 8 she'll Butler-Maze procedure. Overnight, the patient did have some confusion. He had about to fall and he had a trauma to his head. This morning, he seems to be more appropriate although I been told that the patient has been having episodes of confusion. Patient is moving all 4 extremities without any limitation. He was aware of his location and he was oriented to self and place. No focal neurological deficits. No headaches to no loss of consciousness. He remains on oxygen at 2 L per minute nasal cannula. He is using incentive spirometer pulling approximately 1500 on his I asked. Otherwise, his repeat chest x-ray from today shows cardiomegaly and CHF and the patient has a pacemaker in place. Current cardiac rhythm rate of 70. He remains on 2 L about 2 by nasal cannula. CAT scan of the brain showed no acute abnormalities. The white cell count at 6.6 and the patient is going to be transfused with a unit of packed RBC. No hematoma formation and no signs of any active bleeding. Platelet count is at 179 and the patient has a white cell count 9.3. He is at 25 with a creatinine of 1.1. No other significant events overnight. On today's evaluation of 05/25/2021, the patient is postop day #7. The patient remains somewhat confused. Not agitated. The patient has undergone aortic valve tumor resection in addition to a mitral valve repair and tricuspid valve repair with annuloplasty. Overall, the patient's hemodynamically stable. The patient received a unit of packed RBC yesterday for a hemoglobin of 6.6 and a hemoglobin after receiving a total of 2 units is up to 8.3. Patient is currently on 2 L of O2 nasal cannula and the patient's cardiac rhythm is a sitter rate of 70 and the patient has a pacemaker in place. The patient is using incentive spirometer. The patient is pulling approximately 1250 mL. The input output balance is been -470 mL over the past 24 hours. The chest x-ray showing cardiomegaly. There is some mild pulmonary vascular congestion patient remains on IV Lasix. The creatinine is at 0.8 with a sodium level of 136 and a potassium level of 3.7. The patient is moving all 4 extremities without any limitation. No other significant events otherwise for now. Objective - Vital Signs Vital signs: Vital Signs Temp 98.4 F 05/25/21 04:00 Pulse 70 05/25/21 11:51 Resp 23 05/25/21 08:00 BP 125/72 05/25/21 08:00 Pulse Ox 92 L 05/25/21 09:39 Intake & Output 05/24/21 05/25/21 05/25/21 18:59 06:59 18:59 Intake Total 860 240 Output Total 275 750 Balance 585 -750 240 Weight 96 kg Intake: Oral 240 240 Blood Product 620 Rc As-1 Unit 310 [id number] Rc As-1 Unit 310 [id number] Output: Urine 275 750 Other: Voiding Method Urinal Urinal Bedside Commode # Voids 1 1 # Bowel Movements 1 ABP, PAP, CO, CI - Last Documented Arterial Blood Pressure 87/40 Pulmonary Artery Pressure 37/14 Cardiac Output 6.3 Cardiac Index 3.3 - Exam CONSTITUTIONAL: Laying in bed in the intensive care unit, appears comfortable, cooperative, no apparent acute distress. HEENT: Neck is supple, no JVD, no lymphadenopathy. RESPIRATORY: Lungs sounds essentially clear throughout, diminished to his bilateral bases with few scattered crackles. Respirations are symmetrical and nonlabored. Currently on 2 L nasal cannula with oxygen saturations 96%. Able to achieve 1500 mL on his incentive spirometry. Strong cough. Bedside telemetry shows paced rhythm 70 BPM. CARDIOVASCULAR: Regular rhythm and rate. S1 and S2 present, negative for S3, gallop or murmur. Sternum is stable. Palpable peripheral pulses bilaterally. No calf pain or tenderness noted. Heart hugger in place with patient demonstrating appropriate use with encouragement. Knee-high SONIA hose and sequential compression devices in place to his bilateral lower extremities. GASTROINTESTINAL: Abdomen soft, nontender, and slightly distended. Active bow el sounds present 4 quadrants. Tolerating clear liquid diet. No guarding or rigidity. Last bowel movement was on 05/22/2021. GENITOURINARY: Continues to void. Urine output 200 mL in the last 8 hours with reports of 2 incontinent episodes. INTEGUMENTARY: Skin is warm and dry with no evidence of clubbing or cyanosis. Midline sternal incision clean dry and well approximated, covered with dry in tact dressing. NEUROLOGIC: Cranial nerves II through XII intact. No focal deficits. MUSKULOSKELETAL: Able to move all extremities, strength equal bilaterally, generalized weakness. PSYCHIATRIC: Alert and oriented to person place and time, appropriate affect, intact judgment and insight. INVASIVE LINES AND TUBES: Atrial and ventricular epicardial pacemaker wires present, and grounded. - Labs CBC & Chem 7: 05/25/21 06:20 05/25/21 06:20 Labs: Abnormal Lab Results - Last 24 Hours (Table) 05/22/21 05/24/21 05/24/21 Range/Units 07:16 16:58 20:47 RBC (4.30-5.90) m/uL Hgb (13.0-17.5) gm/dL Hct (39.0-53.0) % RDW (11.5-15.5) % Neutrophils # (1.3-7.7) k/uL Lymphocytes # (1.0-4.8) k/uL Sodium (137-145) mmol/L Glucose (74-99) mg/dL POC Glucose (mg/dL) 136 H 106 H (75-99) mg/dL Calcium (8.4-10.2) mg/dL Total Bilirubin (0.2-1.3) mg/dL AST (17-59) U/L Total Protein (6.3-8.2) g/dL Albumin (3.5-5.0) g/dL Crossmatch See Detail 05/25/21 05/25/21 05/25/21 Range/Units 06:20 06:20 06:45 RBC 2.48 L (4.30-5.90) m/uL Hgb 8.3 L D (13.0-17.5) gm/dL Hct 24.6 L (39.0-53.0) % RDW 16.5 H (11.5-15.5) % Neutrophils # 8.6 H (1.3-7.7) k/uL Lymphocytes # 0.8 L (1.0-4.8) k/uL Sodium 136 L (137-145) mmol/L Glucose 102 H (74-99) mg/dL POC Glucose (mg/dL) 110 H (75-99) mg/dL Calcium 7.9 L (8.4-10.2) mg/dL Total Bilirubin 1.9 H (0.2-1.3) mg/dL AST 66 H (17-59) U/L Total Protein 5.7 L (6.3-8.2) g/dL Albumin 3.0 L (3.5-5.0) g/dL Crossmatch 05/25/21 Range/Units 11:27 RBC (4.30-5.90) m/uL Hgb (13.0-17.5) gm/dL Hct (39.0-53.0) % RDW (11.5-15.5) % Neutrophils # (1.3-7.7) k/uL Lymphocytes # (1.0-4.8) k/uL Sodium (137-145) mmol/L Glucose (74-99) mg/dL POC Glucose (mg/dL) 121 H (75-99) mg/dL Calcium (8.4-10.2) mg/dL Total Bilirubin (0.2-1.3) mg/dL AST (17-59) U/L Total Protein (6.3-8.2) g/dL Albumin (3.5-5.0) g/dL Crossmatch Assessment and Plan Plan: 1 postop day #7 following mitral valve and tricuspid valve annuloplasty and resection of an aortic valve tumor. The patient is hemodynamically stable. The patient is not having any respiratory distress at this point in time. Chest x- ray from today showing cardiomegaly. Limited echocardiogram will be ordered to rule out pericardial effusion. 2 post thoracotomy, currently on 2 L about 2 by nasal cannula, stable, using in centive spirometer 3 chronic versus atrial fibrillation, maintained on antibiotic ventilation with Eliquis 4 confusion/delirium with a fall, no evidence of any acute INSPECTOR SEMICONDUCTOR WAFER injury and a CAT scan of the brain has been negative 5 acute anemia, hemoglobin is down to 6.6, expected outcome of surgery.. The follow-up hemoglobin currently is up to 8.3. 6 nonobstructive coronary artery disease, symptomatically at this point in time 7 hypertension 8 hyperlipidemia 9 obstructive sleep apnea, not using any form of CPAP therapy 10 history of closed head injury back in 2010 12 history of permanent pacemaker insertion May 2020 13 blood loss anemia with a hemoglobin of 6.6 posttransfusion with a total of 2 units of packed RBCs.n Plan Continue using incentive spirometer pulm status is stable Monitor mental status Computed tomography scan of Brain Is Negative, mental status is stable. No significant worsening in her mentation. At times, the patient is felt to be slightly confused. Cardiac rhythm is placed Proceed with a limited echocardiogram to evaluate LV function, pericardial eff usion and valvular function Monitor hemoglobin Continue Lasix 20 mg IV every 12 hours and this will be continued Remove the Betancourt catheter and bladder scan Continue amiodarone Keep the patient on aspirin, the patient is also on subcu heparin for DVT prophylaxis. We'll monitor the patient has ICU for another 24 hours
[2021-05-25 16:44] LABS: Glucose,Whole Blood 113 mg/dL (75-99)
--- NOTE | 2021-05-25 18:45 | ECHOF ---
Referral Reason:r/o pericardial effusion, assess valves post surge MEASUREMENTS -------- HEIGHT: 157.5 cm WEIGHT: 95.7 kg BP: RAP: 5.00 mmHg RVSP: 17.90 mmHg FINDINGS -------- Sinus rhythm. Limited Study: Pt is S/P MV & TV repair & AOV Resection, Asscess valves, Pericardial effusion. Overall left ventricular systolic function is low-normal with, an EF between 50 - 55 %. There is mild aortic valve sclerosis. There is mild aortic regurgitation. Mild mitral regurgitation is present. Mitral ring annulloplasty is in place. Trace tricuspid regurgitation present. Small to moderate effusion CONCLUSIONS -------- 1. Limited Study: Pt is S/P MV & TV repair & AOV Resection, Asscess valves, Pericardial effusion. 2. Overall left ventricular systolic function is low-normal with, an EF between 50 - 55 %. 3. Mild mitral regurgitation is present. 4. Mitral ring annulloplasty is in place. 5. Trace tricuspid regurgitation present. 6. Small to moderate effusion PIPE COREMAKER: Cande Lockhart RDCS
[2021-05-25 20:50] LABS: Glucose,Whole Blood 110 mg/dL (75-99)
[2021-05-25] MEDS: ATORVASTATIN 10 MG TAB PO SCH (21:00)
[2021-05-25] MEDS: SENNOSIDES-DOCUSATE SODIUM 1 EACH TAB PO SCH (21:00)
[2021-05-25] MEDS ORDERED: MELATONIN 3 MG TABLET PO SCH (21:00)
[2021-05-26] MEDS: HEPARIN SODIUM,PORCINE/PF 5,000 UNIT/0.5 ML SYRINGE SQ SCH ×3 (00:53→16:53)
[2021-05-26 06:43] LABS: Glucose,Whole Blood 110 mg/dL (75-99)
[2021-05-26] MEDS: PANTOPRAZOLE 40 MG TABLET PO SCH (06:49)
[2021-05-26] MEDS: INSULIN ASPART (NovoLOG) 100 UNIT/ML VIAL SQ SCH ×4 (06:49→20:16)
[2021-05-26 07:51] LABS: Anisocytosis Slight; HCT 26.1 % (39.0-53.0); HGB 8.5 gm/dL (13.0-17.5); Hypochromasia Slight; MCH 32.6 pg (25.0-35.0); MCHC 32.4 g/dL (31.0-37.0); MCV 100.5 fL (80.0-100.0); Macrocytosis Slight; Mean Platelet Volume 7.3; Platelet Count 296 k/uL (150-450); Poikilocytosis Slight; WBC 10.7 k/uL (3.8-10.6)
--- NOTE | 2021-05-26 08:17 | XR ---
EXAMINATION TYPE: XR chest 1V portable DATE OF EXAM: 05/26/2021 CLINICAL HISTORY: Postoperative CABG surgery progress study. TECHNIQUE: Single AP portable upright view of the chest is obtained. COMPARISON: Chest x-ray from one day earlier and older studies. FINDINGS: Persistent cardiomegaly with overlying sternal wires along with left atrial appendage clip and cardiac valvular ring along with single lead pacemaker device are all redemonstrated. Persistent left greater than right bibasilar opacities. No visualized pneumothorax bilaterally. Degen erative change bilateral shoulders redemonstrated. IMPRESSION: Persistent cardiomegaly and mild central vascular congestion with left greater than right bibasilar atelectasis and/or acute infiltrates are all redemonstrated. No significant change from on e day earlier.
[2021-05-26 08:19] LABS: ALT 53 U/L (4-49); AST 77 U/L (17-59); African American GFR (CKD) >90 (>60 ml/min/1.73 sqM); Alkaline Phosphatase 77 U/L (38-126); Anion Gap 6 mmol/L; Blood Urea Nitrogen 17 mg/dL (9-20); Carbon Dioxide 25 mmol/L (22-30); Chloride 102 mmol/L (98-107); Glucose 95 mg/dL (74-99); Non-African American GFR(CKD) 85 (>60 ml/min/1.73 sqM); Potassium 3.7 mmol/L (3.5-5.1); Sodium 133 mmol/L (137-145); Total Bilirubin 1.5 mg/dL (0.2-1.3); Total Protein 5.7 g/dL (6.3-8.2)
[2021-05-26] MEDS: IPRATROPIUM-ALBUTEROL 3 ML NEB INHALATION SCH ×4 (08:37→19:39)
[2021-05-26] MEDS: AMIODARONE 200 MG TAB PO SCH ×2 (09:04→20:11)
[2021-05-26] MEDS: MULTIVITAMINS, THERA 1 EACH TAB PO SCH (09:04)
[2021-05-26] MEDS: FUROSEMIDE 10 MG/ML 2 ML VIAL IV SCH ×2 (09:04→16:53)
[2021-05-26] MEDS: ASPIRIN 81 MG PO SCH (09:04)
[2021-05-26] MEDS: NON FORMULARY DRUG (Vitamin B Complex [Vitamin B Complex] 1 EACH Capsule) PO SCH (09:04)
--- NOTE | 2021-05-26 11:06 | P.PN ---
Subjective Progress Note Date: 05/26/21 A 75-year-old male patient is currently postop day #6. The patient underwent a aortic valve tumor resection along with a repair of a mitral regurgitation and tricuspid valve regurgitation with mitral valve annuloplasty and tricuspid valve annuloplasty and modified by 8 she'll Butler-Maze procedure. Overnight, the patient did have some confusion. He had about to fall and he had a trauma to his head. This morning, he seems to be more appropriate although I been told that the patient has been having episodes of confusion. Patient is moving all 4 extremities without any limitation. He was aware of his location and he was oriented to self and place. No focal neurological deficits. No headaches to no loss of consciousness. He remains on oxygen at 2 L per minute nasal cannula. He is using incentive spirometer pulling approximately 1500 on his I asked. Otherwise, his repeat chest x-ray from today shows cardiomegaly and CHF and the patient has a pacemaker in place. Current cardiac rhythm rate of 70. He remains on 2 L about 2 by nasal cannula. CAT scan of the brain showed no acute abnormalities. The white cell count at 6.6 and the patient is going to be transfused with a unit of packed RBC. No hematoma formation and no signs of any active bleeding. Platelet count is at 179 and the patient has a white cell count 9.3. He is at 25 with a creatinine of 1.1. No other significant events overnight. On today's evaluation of 05/25/2021, the patient is postop day #7. The patient remains somewhat confused. Not agitated. The patient has undergone aortic valve tumor resection in addition to a mitral valve repair and tricuspid valve repair with annuloplasty. Overall, the patient's hemodynamically stable. The patient received a unit of packed RBC yesterday for a hemoglobin of 6.6 and a hemoglobin after receiving a total of 2 units is up to 8.3. Patient is currently on 2 L of O2 nasal cannula and the patient's cardiac rhythm is a sitter rate of 70 and the patient has a pacemaker in place. The patient is using incentive spirometer. The patient is pulling approximately 1250 mL. The input output balance is been -470 mL over the past 24 hours. The chest x-ray showing cardiomegaly. There is some mild pulmonary vascular congestion patient remains on IV Lasix. The creatinine is at 0.8 with a sodium level of 136 and a potassium level of 3.7. The patient is moving all 4 extremities without any limitation. No other significant events otherwise for now. 05/26/2021, the patient is postop day #8. No new complaints. In the patient'sCondition is stable for now. The patient has no hemodynamic changes. The patient's chest x-ray was showing cardiomegaly. Based on that, an echo was done yesterday and showed small to moderate-sized pericardial effusion, moderate MR, trace TR, the patient remains on Lasix 20 mg IV every 12 hours. Overall fluid balance negative on 65 mL over the past 24 hours. The hemoglobin is at 8.5. B is a 70 with a creatinine of 0.8 and sodium is at 133 and the patient is currently on 2 L of oxygen by nasal cannula. Cardiac rhythm remains paced. He is using incentive spirometer pulling 1200 cc on the incentive spirometer. No nausea. No vomiting. No chest pain. No headaches. No other complaints otherwise for now. Objective - Vital Signs Vital signs: Vital Signs Temp 98.3 F 05/26/21 08:00 Pulse 83 05/26/21 10:00 Resp 17 05/26/21 10:00 BP 117/76 05/26/21 10:00 Pulse Ox 96 05/26/21 10:00 Intake & Output 05/25/21 05/26/21 05/26/21 18:59 06:59 18:59 Intake Total 600 200 Output Total 375 400 Balance 225 -400 200 Weight 95.3 kg Intake: Oral 600 200 Output: Urine 375 400 Other: Voiding Method Bedside Commode Urinal Bedside Commode Incontinent Urinal # Voids 1 2 1 # Bowel Movements 1 1 ABP, PAP, CO, CI - Last Documented Arterial Blood Pressure 87/40 Pulmonary Artery Pressure 37/14 Cardiac Output 6.3 Cardiac Index 3.3 - Exam CONSTITUTIONAL: Laying in bed in the intensive care unit, appears comfortable, cooperative, no apparent acute distress. HEENT: Neck is supple, no JVD, no lymphadenopathy. RESPIRATORY: Lungs sounds essentially clear throughout, diminished to his bilateral bases with few scattered crackles. Respirations are symmetrical and nonlabored. Currently on 2 L nasal cannula with oxygen saturations 96%. Able to achieve 1500 mL on his incentive spirometry. Strong cough. Bedside telemetry shows paced rhythm 70 BPM. CARDIOVASCULAR: Regular rhythm and rate. S1 and S2 present, negative for S3, gallop or murmur. Sternum is stable. Palpable peripheral pulses bilaterally. No calf pain or tenderness noted. Heart hugger in place with patient demonstrating appropriate use with encouragement. Knee-high SONIA hose and sequential compression devices in place to his bilateral lower extremities. GASTROINTESTINAL: Abdomen soft, nontender, and slightly distended. Active bowel sounds present 4 quadrants. Tolerating clear liquid diet. No guarding or rigidity. Last bowel movement was on 05/22/2021. GENITOURINARY: Continues to void. Urine output 200 mL in the last 8 hours with reports of 2 incontinent episodes. INTEGUMENTARY: Skin is warm and dry with no evidence of clubbing or cyanosis. Midline sternal incision clean dry and well approximated, covered with dry intact dressing. NEUROLOGIC: Cranial nerves II through XII intact. No focal deficits. MUSKULOSKELETAL: Able to move all extremities, strength equal bilaterally, generalized weakness. PSYCHIATRIC: Alert and oriented to person place and time, appropriate affect, intact judgment and insight. INVASIVE LINES AND TUBES: Atrial and ventricular epicardial pacemaker wires present, and grounded. - Labs CBC & Chem 7: 05/26/21 07:13 05/26/21 07:13 Labs: Abnormal Lab Results - Last 24 Hours (Table) 05/25/21 05/25/21 05/25/21 Range/Units 11:27 16:43 20:48 WBC (3.8-10.6) k/uL RBC (4.30-5.90) m/uL Hgb (13.0-17.5) gm/dL Hct (39.0-53.0) % MCV (80.0-100.0) fL RDW (11.5-15.5) % Sodium (137-145) mmol/L POC Glucose (mg/dL) 121 H 113 H 110 H (75-99) mg/dL Calcium (8.4-10.2) mg/dL Total Bilirubin (0.2-1.3) mg/dL AST (17-59) U/L ALT (4-49) U/L Total Protein (6.3-8.2) g/dL Albumin (3.5-5.0) g/dL 05/26/21 05/26/21 05/26/21 Range/Units 06:41 07:13 07:13 WBC 10.7 H (3.8-10.6) k/uL RBC 2.60 L (4.30-5.90) m/uL Hgb 8.5 L (13.0-17.5) gm/dL Hct 26.1 L (39.0-53.0) % MCV 100.5 H (80.0-100.0) fL RDW 17.0 H (11.5-15.5) % Sodium 133 L (137-145) mmol/L POC Glucose (mg/dL) 110 H (75-99) mg/dL Calcium 8.0 L (8.4-10.2) mg/dL Total Bilirubin 1.5 H (0.2-1.3) mg/dL AST 77 H (17-59) U/L ALT 53 H (4-49) U/L Total Protein 5.7 L (6.3-8.2) g/dL Albumin 3.0 L (3.5-5.0) g/dL Assessment and Plan Plan: 1 postop day #8 following mitral valve and tricuspid valve annuloplasty and resection of an aortic valve tumor. The patient is hemodynamically stable. The patient is not having any respiratory distress at this point in time. Chest x- ray from today showing cardiomegaly. Limited echocardiogram was completed and showed a [id number] pericardial effusion, moderate MR, mild TR and the patient continues to be on diuretics. 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 The follow-up hemoglobin currently is up to 8.45 6 nonobstructive coronary artery disease, symptomatically at this point in time 7 hypertension 8 hyperlipidemia 9 obstructive sleep apnea, not using any form of CPAP therapy 10 history of closed head injury back in 2010 12 history of permanent pacemaker insertion May 2020 13 blood loss anemia with a hemoglobin of 6.6 posttransfusion with a total of 2 units of packed RBCs.n Plan Continue using incentive spirometer Echo of the heart was noted Continue diuretics Increased mobility as tolerated Hemoglobin is stable at 8.5 Continue aspirin Continue amiodarone Continue Lipitor Continue supportive care will continue to follow.
[2021-05-26 11:31] LABS: Glucose,Whole Blood 111 mg/dL (75-99)
[2021-05-26] MEDS: ASCORBIC ACID 500 MG TAB PO SCH (12:02)
[2021-05-26] MEDS: FERROUS SULFATE 325 MG TAB PO SCH (12:02)
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
[2021-05-26 16:46] LABS: Glucose,Whole Blood 131 mg/dL (75-99)
[2021-05-26 18:07] LABS: Appearance,Urine Clear (Clear); Bilirubin,Urine Negative (Negative); Blood,Urine Negative (Negative); Color,Urine Yellow; Glucose,Urine (UA) Negative (Negative); Ketones,Urine Negative (Negative); Leukocyte Esterase,Urine Negative (Negative); Nitrite,Urine Negative (Negative); Protein,Urine Negative (Negative); Specific Gravity,Urine 1.009 (1.001-1.035); Urobilinogen,Urine <2.0 mg/dL (<2.0)
[2021-05-26] MEDS: ATORVASTATIN 10 MG TAB PO SCH (20:12)
[2021-05-26] MEDS: SENNOSIDES-DOCUSATE SODIUM 1 EACH TAB PO SCH (20:12)
[2021-05-26 20:16] LABS: Glucose,Whole Blood 121 mg/dL (75-99)
[2021-05-27] MEDS: HEPARIN SODIUM,PORCINE/PF 5,000 UNIT/0.5 ML SYRINGE SQ SCH ×4 (00:29→23:39)
[2021-05-27 05:11] LABS: Anisocytosis Slight; Basophils % (A) 0 %; Eosinophils # (A) 0.1 k/uL (0-0.7); Eosinophils % (A) 1 %; HCT 25.5 % (39.0-53.0); HGB 8.3 gm/dL (13.0-17.5); Hypochromasia Slight; Lymphocytes # (A) 0.7 k/uL (1.0-4.8); Lymphocytes % (A) 7 %; MCH 32.8 pg (25.0-35.0); MCHC 32.7 g/dL (31.0-37.0); MCV 100.3 fL (80.0-100.0); Macrocytosis Slight; Mean Platelet Volume 7.1; Monocytes # (A) 0.6 k/uL (0-1.0); Monocytes % (A) 6 %; Neutrophils # (A) 8.6 k/uL (1.3-7.7); Neutrophils % (A) 84 %; Platelet Count 331 k/uL (150-450); Poikilocytosis Slight; RBC 2.55 m/uL (4.30-5.90); RDW 16.7 % (11.5-15.5); WBC 10.2 k/uL (3.8-10.6)
[2021-05-27 05:29] LABS: ALT 67 U/L (4-49); AST 80 U/L (17-59); African American GFR (CKD) >90 (>60 ml/min/1.73 sqM); Alkaline Phosphatase 72 U/L (38-126); Anion Gap 6 mmol/L; Blood Urea Nitrogen 16 mg/dL (9-20); Calcium 7.9 mg/dL (8.4-10.2); Carbon Dioxide 26 mmol/L (22-30); Chloride 101 mmol/L (98-107); Glucose 99 mg/dL (74-99); Non-African American GFR(CKD) 85 (>60 ml/min/1.73 sqM); Potassium 3.4 mmol/L (3.5-5.1); Sodium 133 mmol/L (137-145); Total Bilirubin 1.2 mg/dL (0.2-1.3); Total Protein 5.5 g/dL (6.3-8.2)
[2021-05-27] MEDS: INSULIN ASPART (NovoLOG) 100 UNIT/ML VIAL SQ SCH ×4 (06:03→20:36)
[2021-05-27] MEDS: PANTOPRAZOLE 40 MG TABLET PO SCH (06:45)
[2021-05-27] MEDS ORDERED: SENNOSIDES-DOCUSATE SODIUM 1 EACH TAB PO PRN (06:55)
[2021-05-27] MEDS ORDERED: POTASSIUM CHLORIDE ER 20 MEQ TAB.ER PO SCH (07:00)
[2021-05-27] MEDS: IPRATROPIUM-ALBUTEROL 3 ML NEB INHALATION SCH ×4 (07:53→18:57)
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
[2021-05-27] MEDS: ASPIRIN 81 MG PO SCH (08:22)
[2021-05-27] MEDS: FUROSEMIDE 10 MG/ML 2 ML VIAL IV SCH ×2 (08:22→17:20)
[2021-05-27] MEDS: AMIODARONE 200 MG TAB PO SCH ×2 (08:22→20:36)
[2021-05-27] MEDS: NON FORMULARY DRUG (Vitamin B Complex [Vitamin B Complex] 1 EACH Capsule) PO SCH (08:23)
[2021-05-27] MEDS: POTASSIUM CHLORIDE ER 20 MEQ TAB.ER PO SCH ×2 (08:23→20:36)
[2021-05-27] MEDS: MULTIVITAMINS, THERA 1 EACH TAB PO SCH (08:23)
--- NOTE | 2021-05-27 08:30 | XR ---
EXAMINATION TYPE: XR chest 1V portable DATE OF EXAM: 05/27/2021 Comparison: 05/26/2021 Clinical History: 75-year-old male Postoperative cardiac surgery Findings: Median sternotomy wires are present. Cardiac annuloplasty ring. Left anterior chest wall pacemaker ge nerator with right ventricular lead. Similar moderate cardiomegaly. Mild interstitial changes persist . Patchy and hazy bilateral lower lung densities persist. Possible trace left apical pneumothorax measuring 8 mm. Not clearly seen previously. Impression: 1. Possible trace 8 mm left apical pneumothorax not clearly seen previously. 2. Continued moderate cardiomegaly, pulmonary vascular congestion, and small pleural effusions with a djacent atelectasis and/or consolidation.
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
--- NOTE | 2021-05-27 10:48 | US ---
EXAMINATION TYPE: US chest DATE OF EXAM: 05/27/2021 COMPARISON: Radiograph same day CLINICAL HISTORY: 75-year-old male bilateral, tino for thoracentesis. TECHNIQUE: Targeted ultrasound of the posterior lower bilateral hemithoraces EXAM MEASUREMENTS: Right side NOT marked for possible thoracentesis outside the dept due to anterior position of lung. Left side NOT marked for possible thoracentesis outside the dept due to anterior position of lung. Pulmonologists are able to review the images in the patient?s EMR. IMPRESSIONS: Small bilateral pleural effusions with underlying atelectasis.
[2021-05-27 11:41] LABS: Glucose,Whole Blood 98 mg/dL (75-99)
[2021-05-27 16:56] LABS: Glucose,Whole Blood 130 mg/dL (75-99)
[2021-05-27] MEDS: ASCORBIC ACID 500 MG TAB PO SCH (17:20)
[2021-05-27] MEDS: FERROUS SULFATE 325 MG TAB PO SCH (17:20)
[2021-05-27 20:10] LABS: Glucose,Whole Blood 146 mg/dL (75-99)
[2021-05-27] MEDS: ATORVASTATIN 10 MG TAB PO SCH (20:36)
[2021-05-28] MEDS: INSULIN ASPART (NovoLOG) 100 UNIT/ML VIAL SQ SCH ×4 (06:40→20:26)
[2021-05-28 06:41] LABS: Glucose,Whole Blood 111 mg/dL (75-99)
[2021-05-28] MEDS: PANTOPRAZOLE 40 MG TABLET PO SCH (06:47)
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
[2021-05-28] MEDS: IPRATROPIUM-ALBUTEROL 3 ML NEB INHALATION SCH ×4 (07:33→19:56)
[2021-05-28 07:42] LABS: HCT 27.2 % (39.0-53.0); HGB 8.5 gm/dL (13.0-17.5); Hypochromasia Moderate; MCH 31.9 pg (25.0-35.0); MCHC 31.1 g/dL (31.0-37.0); MCV 102.4 fL (80.0-100.0); Macrocytosis Slight; Mean Platelet Volume 7.6; Platelet Count 354 k/uL (150-450); RBC 2.65 m/uL (4.30-5.90); RDW 15.5 % (11.5-15.5); WBC 11.5 k/uL (3.8-10.6)
--- NOTE | 2021-05-28 08:03 | CDI ---
Documentation Clarification Form Date: 05/28/2021 07:41:56 AM From: Kaylie Curiel CCS, CCDS Admit Date: 05/19/2021 05:41:00 AM Patient Name: Jerel Schwarz Visit Number: [id number] Discharge Date: ATTENTION: The Clinical Documentation Specialists (CDI) and [facility] Coding Staff appreciate your assistance in clarifying documentation. Please respond to the clarification below the line at the bottom and electronically sign. The CDI & [facility] Coding staff will review the response and follow-up if needed. Please note: Queries are made part of the Legal Health Record. If you have any questions, please contact the author of this message via ITS. Dr. Tate Paez: The following is documented in the 05/27 Cardiothoracic Surgeon's Progress Note: Patient remains confused, can state his full name and knows that he is in a big building but can't state which building it is, cannot state the date, does know that he had 2 surgeries. The patient began having confusion on 05/24. Confusion & Delirium is documented in the 05/24 Dentist/Owner Progress Note. The patient also had a fall trying to get out of bed unassisted on 05/24. Additional clarification regarding the patient's confusion is requested. History/Risk Factors per the scanned Cardiothoracic Consult/H/P: Hospitalized in [place] in September of 2020 with Sepsis, BRIONNA performed to r/o endocarditis. Found to have a pedunculated mass attached to the left coronary sinus leaflet of the aortic valve consistent with fibroelastoma, also Mitral & Tricuspid Regurgitation. Long history of Atrial Fibrillation on Toprol & Eliquis. Hypertension, Hypercholesterolemia, mild CAD, Sleep Apnea, TIA, Moderately Obese Clinical Indicators: Presented on 05/19 for elective surgery: Resection of Aortic Valve Tumor, Mitral Valve Annuloplasty, Tricuspid Valve Annuloplasty, Modified Biatrial Butler Maze with occlusion of Left Atrial Appendage with AtriCure Clip. Postoperatively developed Hemorrhage and returned to the OR same same for Exploration & Mediastinal Washout, remains in ICU. Remains in Atrial Fibrillation with controlled heart rate. 05/24 VS: Stable, PO 97-98 on 2Lnc 05/24 Labs: RBC 1.98, Hgb 6.6, Hct 20.3; Na 131, CO2 19, BUN 25, Glucose 122, Calcium 7.9, AST 65, Total Protein 5.7, Albumin 3.3. Stool Occult Blood: Negative. 05/24 CT Brain: No acute intracranial process identified. 05/24 CXR: Persistent cardiomegaly & mild central vascular congestion, low lung volumes with left greater than right bibasilar atelectasis and/or infiltrates are all redemonstrated. Treatment: Blood Transfusions: 4 units PRBCs: 05/19, 05/21 & 05/24. po K-Dur 20 meq q1H, IV Lasix 40 mg x1, po K-Dur 20 meq q1H. Statin, low dose Aspirin, Heparin subcu, Held beta ryne and Plavix. Amiodarone 400 mg po BID. Bladder scan q6, Straight cath. Wean O2, Incentive spirometry, PT/OT, Daily lab/CXRs, Pain control, Atrial & Ventricular Epicardial pacemaker wire removed. Please clarify the cause of the patient's confusion: : [ ] Metabolic Encephalopathy [ ] Toxic Encephalopathy [ ] Other cause of confusion, please specify: [ ] Other, please specify: [ ] Unable to determine (Template Last Revised: April 2020) 05/28 Query response documented in the 05/28 Cardiothoracic Progress Note (Ekaterina Zapata for Cris Aj/Philippe): Confusion unknown cause. (CDS: CRYS) MTDD
[2021-05-28] MEDS: AMIODARONE 200 MG TAB PO SCH ×2 (08:13→20:24)
[2021-05-28] MEDS: MULTIVITAMINS, THERA 1 EACH TAB PO SCH (08:13)
[2021-05-28] MEDS: POTASSIUM CHLORIDE ER 20 MEQ TAB.ER PO SCH ×2 (08:13→20:25)
[2021-05-28] MEDS: FUROSEMIDE 10 MG/ML 2 ML VIAL IV SCH ×2 (08:13→16:50)
[2021-05-28] MEDS: ASPIRIN 81 MG PO SCH (08:13)
[2021-05-28] MEDS: HEPARIN SODIUM,PORCINE/PF 5,000 UNIT/0.5 ML SYRINGE SQ SCH ×2 (08:13→17:21)
[2021-05-28] MEDS: NON FORMULARY DRUG (Vitamin B Complex [Vitamin B Complex] 1 EACH Capsule) PO SCH (08:14)
--- NOTE | 2021-05-28 08:17 | XR ---
EXAMINATION TYPE: XR chest 2V DATE OF EXAM: 05/28/2021 COMPARISON: X-ray dated 05/27/2021 HISTORY: Post cardiac surgery TECHNIQUE: Frontal and lateral views of the chest are obtained. FINDINGS: Suboptimal x-ray with poor penetration. Persistent cardiomegaly, associated pericardial effusion can' t be excluded. Congested pulmonary vasculature with prominent interstitial lung markings suggestive o f pulmonary edema. Small atelectasis in the left midlung zone and lung bases. Suspected left pleural effusion. No sizabl e right-sided pleural effusion. Sternotomy wire sutures. Left upper chest wall single lead pacemaker. Cardiac valve prosthesis. No obvious pneumothorax. Unchanged bony thoracic cage. IMPRESSION: Postoperative changes with persistent cardiomegaly and possible pulmonary edema as described above.
[2021-05-28 08:22] LABS: African American GFR (CKD) >90 (>60 ml/min/1.73 sqM); Anion Gap 9 mmol/L; Blood Urea Nitrogen 15 mg/dL (9-20); Calcium 8.1 mg/dL (8.4-10.2); Carbon Dioxide 24 mmol/L (22-30); Chloride 101 mmol/L (98-107); Glucose 99 mg/dL (74-99); Magnesium 1.9 mg/dL (1.6-2.3); Non-African American GFR(CKD) 84 (>60 ml/min/1.73 sqM); Potassium 4.3 mmol/L (3.5-5.1); Sodium 134 mmol/L (137-145)
[2021-05-28] MEDS ORDERED: METOPROLOL TARTRATE 12.5 MG TAB PO SCH (09:00)
[2021-05-28] MEDS: ACETAMINOPHEN TAB 325 MG TAB PO PRN (10:57)
[2021-05-28] MEDS: MAGNESIUM SULFATE-D5W PMX 1 GM in DEXTROSE/WATER 1 100ML.BAG IVPB SCH ×2 (12:04→15:14)
[2021-05-28] MEDS: ASCORBIC ACID 500 MG TAB PO SCH (12:12)
[2021-05-28] MEDS: FERROUS SULFATE 325 MG TAB PO SCH (12:12)
[2021-05-28 12:13] LABS: Glucose,Whole Blood 119 mg/dL (75-99)
--- NOTE | 2021-05-28 12:39 | P.PN ---
Subjective Progress Note Date: 05/28/21 A 75-year-old male patient is currently postop day #6. The patient underwent a aortic valve tumor resection along with a repair of a mitral regurgitation and tricuspid valve regurgitation with mitral valve annuloplasty and tricuspid valve annuloplasty and modified by 8 she'll Butler-Maze procedure. Overnight, the patient did have some confusion. He had about to fall and he had a trauma to his head. This morning, he seems to be more appropriate although I been told that the patient has been having episodes of confusion. Patient is moving all 4 extremities without any limitation. He was aware of his location and he was oriented to self and place. No focal neurological deficits. No headaches to no loss of consciousness. He remains on oxygen at 2 L per minute nasal cannula. He is using incentive spirometer pulling approximately 1500 on his I asked. Otherwise, his repeat chest x-ray from today shows cardiomegaly and CHF and the patient has a pacemaker in place. Current cardiac rhythm rate of 70. He remains on 2 L about 2 by nasal cannula. CAT scan of the brain showed no acute abnormalities. The white cell count at 6.6 and the patient is going to be transfused with a unit of packed RBC. No hematoma formation and no signs of any active bleeding. Platelet count is at 179 and the patient has a white cell count 9.3. He is at 25 with a creatinine of 1.1. No other significant events overnight. On today's evaluation of 05/25/2021, the patient is postop day #7. The patient remains somewhat confused. Not agitated. The patient has undergone aortic valve tumor resection in addition to a mitral valve repair and tricuspid valve repair with annuloplasty. Overall, the patient's hemodynamically stable. The patient received a unit of packed RBC yesterday for a hemoglobin of 6.6 and a hemoglobin after receiving a total of 2 units is up to 8.3. Patient is currently on 2 L of O2 nasal cannula and the patient's cardiac rhythm is a sitter rate of 70 and the patient has a pacemaker in place. The patient is using incentive spirometer. The patient is pulling approximately 1250 mL. The input output balance is been -470 mL over the past 24 hours. The chest x-ray showing cardiomegaly. There is some mild pulmonary vascular congestion patient remains on IV Lasix. The creatinine is at 0.8 with a sodium level of 136 and a potassium level of 3.7. The patient is moving all 4 extremities without any limitation. No other significant events otherwise for now. 05/26/2021, the patient is postop day #8. No new complaints. In the patient'sCondition is stable for now. The patient has no hemodynamic changes. The patient's chest x-ray was showing cardiomegaly. Based on that, an echo was done yesterday and showed small to moderate-sized pericardial effusion, moderate MR, trace TR, the patient remains on Lasix 20 mg IV every 12 hours. Overall fluid balance negative on 65 mL over the past 24 hours. The hemoglobin is at 8.5. B is a 70 with a creatinine of 0.8 and sodium is at 133 and the patient is currently on 2 L of oxygen by nasal cannula. Cardiac rhythm remains paced. He is using incentive spirometer pulling 1200 cc on the incentive spirometer. No nausea. No vomiting. No chest pain. No headaches. No other complaints otherwise for now. The patient is seen today 05/27/2021 in follow-up in the intensive care unit. Postoperative day #9. He is sitting up in a chair at the bedside. Awake and alert in no acute distress. He is maintaining good O2 saturations in the 90s on 3 L/m per nasal cannula. He is still having some issues with confusion. Chest x-ray reveals moderate cardiomegaly, pulmonary vascular congestion and small bilateral pleural effusions/atelectasis. Possibly a trace 8 mm left apical pneumothorax. He is status post 4 units of packed red blood cells this admission. White count 10.2. Hemoglobin 8.3. Platelets 331. Sodium 133. Potassium 3.4. BUN 816. Creatinine 0.88. Glucose 99. Urinalysis clean. He continues to work well with the incentive spirometer. Pulling approximately 1000 ML's. He remains on DuoNeb inhalations. Currently in atrial fibrillation with occasional PVCs and a controlled ventricular rate. He is continued on amiodarone at the plan is to resume his eloquent's prior to his discharge. He is continued on IV diuretics. Currently in a -175 ML balance. 05/28/2021, the patient is being seen for a follow-up. The patient is postop day #10. Doing well. No new complaints. Remains on and off confused. [place] a temperature 100.6. No clear evidence of any infection. Sternal wound remains dry clean and intact. White cell count is 11.5. Chest x-ray stable and shows no significant new abnormalities and the patient continues to have cardiomegaly. Ultrasound the chest showed no evidence of any pleural effusion. The patient is otherwise doing well. No specific complaints. Renal function remains stable with a creatinine of 0.9 and a BUN of 15. The fluid balance is -175 mL over the past 24 hours and the patient remains on IV Lasix 20 mg IV push every 12 hours. The patient remains on aspirin. The patient remains on amiodarone 200 mg by mouth twice a day. The patient remains on metoprolol 12.5 mg by mouth twice a day. He is ambulating. No focal neurological deficits. No headaches. Objective - Vital Signs Vital signs: Vital Signs Temp 99.6 F 05/28/21 08:00 Pulse 89 05/28/21 09:00 Resp 21 05/28/21 09:00 BP 112/96 05/28/21 09:00 Pulse Ox 97 05/28/21 09:00 Intake & Output 05/27/21 05/28/21 05/28/21 18:59 06:59 18:59 Intake Total 840 480 Output Total 550 200 Balance 290 280 Weight 95 kg Intake: Oral 840 480 Output: Urine 550 200 Other: Voiding Method Urinal Urinal # Voids 1 0 ABP, PAP, CO, CI - Last Documented Arterial Blood Pressure 87/40 Pulmonary Artery Pressure 37/14 Cardiac Output 6.3 Cardiac Index 3.3 - Exam CONSTITUTIONAL: Alert pleasant 77-year-old gentleman, currently up in a chair at the bedside, in the intensive care unit, appears comfortable, cooperative, no apparent acute distress. HEENT: Neck is supple, no JVD, no lymphadenopathy. RESPIRATORY: Lungs sounds essentially clear throughout, diminished to his bilateral bases with few scattered crackles. Respirations are symmetrical and nonlabored. Currently on 2 L nasal cannula with oxygen saturations 97%. Able to achieve 1000 mL on his incentive spirometry. Strong cough. CARDIOVASCULAR: Irrgular rhythm and rate. S1 and S2 present, negative for S3, gallop or murmur. Sternum is stable. Palpable peripheral pulses bilaterally. No calf pain or tenderness noted. Heart hugger in place with patient demonstrating appropriate use with encouragement. Knee-high SONIA hose and sequ ential compression devices in place to his bilateral lower extremities. GASTROINTESTINAL: Abdomen soft, nontender, and slightly distended. Active bowel sounds present 4 quadrants. Tolerating diet. No guarding or rigidity. GENITOURINARY: Continues to void. Urine output 200 mL in the last 8 hours with reports of 2 incontinent episodes. INTEGUMENTARY: Skin is warm and dry with no evidence of clubbing or cyanosis. Midline sternal incision clean dry and well approximated, covered with dry int act dressing. NEUROLOGIC: Cranial nerves II through XII intact. No focal deficits. MUSKULOSKELETAL: Able to move all extremities, strength equal bilaterally, generalized weakness. PSYCHIATRIC: Alert and oriented to person place and time, appropriate affect, intact judgment and insight. - Labs CBC & Chem 7: 05/28/21 06:59 05/28/21 06:59 Labs: Abnormal Lab Results - Last 24 Hours (Table) 05/27/21 05/27/21 05/28/21 Range/Units 16:55 20:09 06:39 WBC (3.8-10.6) k/uL RBC (4.30-5.90) m/uL Hgb (13.0-17.5) gm/dL Hct (39.0-53.0) % MCV (80.0-100.0) fL Sodium (137-145) mmol/L POC Glucose (mg/dL) 130 H 146 H 111 H (75-99) mg/dL Calcium (8.4-10.2) mg/dL 05/28/21 05/28/21 05/28/21 Range/Units 06:59 06:59 12:12 WBC 11.5 H (3.8-10.6) k/uL RBC 2.65 L (4.30-5.90) m/uL Hgb 8.5 L (13.0-17.5) gm/dL Hct 27.2 L (39.0-53.0) % MCV 102.4 H (80.0-100.0) fL Sodium 134 L (137-145) mmol/L POC Glucose (mg/dL) 119 H (75-99) mg/dL Calcium 8.1 L (8.4-10.2) mg/dL Assessment and Plan Assessment: 1 postop day #10 following mitral valve and tricuspid valve annuloplasty and resection of an aortic valve tumor. The patient is hemodynamically stable. The patient is not having any respiratory distress at this point in time. Chest x- ray from today showing cardiomegaly. Limited echocardiogram was completed and showed a [id number] pericardial effusion, moderate MR, mild TR and the patient continues to be on diuretics. 2 post thoracotomy, currently on 2 L by nasal cannula, stable, using incentive spirometer, no evidence sizable pleural effusion on the ultrasound of the chest. 3 chronic atrial fibrillation, maintained on Eliquis 4 confusion/delirium with a fall, no evidence of any acute [employer] injury and a CAT scan of the brain has been negative 5 acute anemia, hemoglobin is down to 6.6, expected outcome of surgery. Status post 4 units of packed red blood cells this admission. The follow-up hemoglobin currently is up to 8.5 6 nonobstructive coronary artery disease, symptomatically at this point in time 7 hypertension 8 hyperlipidemia 9 obstructive sleep apnea, not using any form of CPAP therapy 10 history of closed head injury back in 2010 11 history of permanent pacemaker insertion May 2020 Plan Monitor the fever pattern. The white cell count is not elevated. Continue diuretics Chest x-ray was reviewed No significant leukocytosis Suggest low-dose Seroquel regarding this patient's ongoing delirium and is agreeable the patient will be started on 50 mg of Seroquel at bedtime Continue metoprolol and amiodarone Continue aspirin Continue anticoagulation with Eliquis We'll continue to follow
[2021-05-28 17:02] LABS: Glucose,Whole Blood 127 mg/dL (75-99)
[2021-05-28 20:14] LABS: Glucose,Whole Blood 145 mg/dL (75-99)
[2021-05-28] MEDS: ATORVASTATIN 10 MG TAB PO SCH (20:25)
[2021-05-28] MEDS: APIXABAN 5 MG TAB PO SCH (20:25)
[2021-05-28] MEDS: SENNOSIDES-DOCUSATE SODIUM 1 EACH TAB PO SCH (20:26)
[2021-05-29 06:34] LABS: Glucose,Whole Blood 119 mg/dL (75-99)
[2021-05-29] MEDS: INSULIN ASPART (NovoLOG) 100 UNIT/ML VIAL SQ SCH ×4 (06:35→20:24)
[2021-05-29] MEDS: PANTOPRAZOLE 40 MG TABLET PO SCH (06:47)
[2021-05-29 07:01] LABS: HCT 25.7 % (39.0-53.0); HGB 8.2 gm/dL (13.0-17.5); Hypochromasia Moderate; MCHC 31.9 g/dL (31.0-37.0); MCV 100.1 fL (80.0-100.0); Macrocytosis Slight; Mean Platelet Volume 7.2; Platelet Count 411 k/uL (150-450); RBC 2.57 m/uL (4.30-5.90); WBC 9.8 k/uL (3.8-10.6)
[2021-05-29] MEDS: IPRATROPIUM-ALBUTEROL 3 ML NEB INHALATION SCH ×4 (07:07→19:35)
[2021-05-29 07:18] LABS: African American GFR (CKD) >90 (>60 ml/min/1.73 sqM); Anion Gap 8 mmol/L; Blood Urea Nitrogen 15 mg/dL (9-20); Carbon Dioxide 26 mmol/L (22-30); Chloride 100 mmol/L (98-107); Glucose 97 mg/dL (74-99); Magnesium 2.2 mg/dL (1.6-2.3); Non-African American GFR(CKD) 84 (>60 ml/min/1.73 sqM); Potassium 3.9 mmol/L (3.5-5.1); Sodium 134 mmol/L (137-145)
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
--- NOTE | 2021-05-29 08:00 | XR ---
EXAMINATION TYPE: XR chest 2V DATE OF EXAM: 05/29/2021 7:52 AM COMPARISON:Chest radiograph from one day prior. TECHNIQUE: XR chest 2V Frontal and lateral views of the chest. CLINICAL INDICATION:Male, 76 years old with history of post cardiac surgery; FINDINGS: Lungs/Pleura: Streaky atelectasis without evidence of pneumothorax. Improved aeration of the left sumeet g base on today's exam. Trace bilateral pleural effusions suspected. Pulmonary vascularity: Unremarkable. Heart/mediastinum: Cardiomediastinal silhouette is unremarkable. Single-lead cardiac conduction devic e overlying the left hemithorax with lead projecting over the right ventricle. Prosthetic valve repla cement changes. Musculoskeletal: No acute osseous pathology. Midline sternotomy wires and surgical cl ips project over the mediastinum. IMPRESSION: Post cardiac changes with streaky atelectasis and improved aeration of the left lung base.
[2021-05-29] MEDS ORDERED: metOLazone 2.5 MG TAB PO SCH (09:00)
[2021-05-29] MEDS: AMIODARONE 200 MG TAB PO SCH ×2 (09:21→20:25)
[2021-05-29] MEDS: MULTIVITAMINS, THERA 1 EACH TAB PO SCH (09:21)
[2021-05-29] MEDS: SIMETHICONE 80 MG CHEWABLE PO SCH ×4 (09:21→21:16)
[2021-05-29] MEDS: METOPROLOL TARTRATE 12.5 MG TAB PO SCH ×2 (09:21→22:00)
[2021-05-29] MEDS: ASPIRIN 81 MG PO SCH (09:21)
[2021-05-29] MEDS: APIXABAN 5 MG TAB PO SCH ×2 (09:22→20:25)
[2021-05-29] MEDS: bisacodyL 10 MG SUPP RECTAL PRN (09:22)
[2021-05-29] MEDS: POTASSIUM CHLORIDE ER 20 MEQ TAB.ER PO SCH ×2 (09:22→20:25)
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
[2021-05-29 11:33] LABS: Glucose,Whole Blood 121 mg/dL (75-99)
[2021-05-29] MEDS: FERROUS SULFATE 325 MG TAB PO SCH (11:43)
[2021-05-29] MEDS: FUROSEMIDE 10 MG/ML 2 ML VIAL IV SCH ×2 (11:43→16:48)
[2021-05-29] MEDS: ASCORBIC ACID 500 MG TAB PO SCH (11:43)
[2021-05-29 16:45] LABS: Glucose,Whole Blood 111 mg/dL (75-99)
[2021-05-29 20:17] LABS: Glucose,Whole Blood 134 mg/dL (75-99)
[2021-05-29] MEDS: ATORVASTATIN 10 MG TAB PO SCH (20:24)
[2021-05-29] MEDS: SENNOSIDES-DOCUSATE SODIUM 1 EACH TAB PO SCH (20:25)
[2021-05-30 06:34] LABS: HCT 26.5 % (39.0-53.0); HGB 8.4 gm/dL (13.0-17.5); Hypochromasia Moderate; MCHC 31.8 g/dL (31.0-37.0); MCV 100.7 fL (80.0-100.0); Macrocytosis Slight; Mean Platelet Volume 7.3; Platelet Count 434 k/uL (150-450); RBC 2.63 m/uL (4.30-5.90); RDW 14.8 % (11.5-15.5); WBC 9.5 k/uL (3.8-10.6)
[2021-05-30 06:46] LABS: Calcium 8.1 mg/dL (8.4-10.2); Potassium 3.6 mmol/L (3.5-5.1)
[2021-05-30] MEDS: PANTOPRAZOLE 40 MG TABLET PO SCH (06:48)
[2021-05-30] MEDS: INSULIN ASPART (NovoLOG) 100 UNIT/ML VIAL SQ SCH ×4 (06:48→20:16)
[2021-05-30 06:49] LABS: Glucose,Whole Blood 108 mg/dL (75-99)
--- NOTE | 2021-05-30 07:06 | XR ---
EXAMINATION TYPE: XR chest 2V DATE OF EXAM: 05/30/2021 COMPARISON: Chest x-ray from yesterday and older studies HISTORY: Postoperative cardiac surgery. TECHNIQUE: Frontal and lateral views of the chest are obtained. FINDINGS: Persistent cardiomegaly with overlying sternal wires along with left atrial appendage clip and cardiac valvular ring along with single lead pacemaker device are all redemonstrated. Persistent left greater than right bibasilar opacities. No visualized pneumothorax bilaterally. Degen erative change bilateral shoulders definitely noted. IMPRESSION: Persistent cardiomegaly and mild central vascular congestion with small bilateral pleural effusions and left greater than right bibasilar atelectasis and/or acute infiltrates are all redemon strated. No significant change from one day earlier.
[2021-05-30] MEDS: IPRATROPIUM-ALBUTEROL 3 ML NEB INHALATION SCH ×4 (07:26→20:13)
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
[2021-05-30] MEDS: ASCORBIC ACID 500 MG TAB PO SCH (08:19)
[2021-05-30] MEDS: SIMETHICONE 80 MG CHEWABLE PO SCH ×4 (08:19→20:55)
[2021-05-30] MEDS: APIXABAN 5 MG TAB PO SCH ×2 (08:19→20:16)
[2021-05-30] MEDS: FERROUS SULFATE 325 MG TAB PO SCH (08:20)
[2021-05-30] MEDS: MULTIVITAMINS, THERA 1 EACH TAB PO SCH (08:20)
[2021-05-30] MEDS: METOPROLOL TARTRATE 12.5 MG TAB PO SCH ×2 (08:20→20:16)
[2021-05-30] MEDS: ASPIRIN 81 MG PO SCH (08:20)
[2021-05-30] MEDS: AMIODARONE 200 MG TAB PO SCH ×2 (08:20→20:15)
[2021-05-30] MEDS: POTASSIUM CHLORIDE ER 20 MEQ TAB.ER PO SCH ×2 (08:20→20:16)
[2021-05-30] MEDS: FUROSEMIDE 10 MG/ML 2 ML VIAL IV SCH ×2 (11:04→16:51)
[2021-05-30 11:10] LABS: Glucose,Whole Blood 122 mg/dL (75-99)
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
[2021-05-30 16:41] LABS: Glucose,Whole Blood 143 mg/dL (75-99)
[2021-05-30] MEDS ORDERED: QUEtiapine 25 MG TAB PO STA (19:19)
[2021-05-30 20:09] LABS: Glucose,Whole Blood 204 mg/dL (75-99)
[2021-05-30] MEDS: ATORVASTATIN 10 MG TAB PO SCH (20:15)
[2021-05-30] MEDS: SENNOSIDES-DOCUSATE SODIUM 1 EACH TAB PO SCH (20:15)
[2021-05-31 06:47] LABS: Glucose,Whole Blood 105 mg/dL (75-99)
[2021-05-31] MEDS: INSULIN ASPART (NovoLOG) 100 UNIT/ML VIAL SQ SCH ×4 (06:53→20:22)
[2021-05-31] MEDS: PANTOPRAZOLE 40 MG TABLET PO SCH (06:56)
[2021-05-31] MEDS: IPRATROPIUM-ALBUTEROL 3 ML NEB INHALATION SCH ×4 (07:05→19:39)
[2021-05-31] MEDS: METOPROLOL TARTRATE 12.5 MG TAB PO SCH ×2 (07:43→22:13)
[2021-05-31] MEDS: ASPIRIN 81 MG PO SCH (07:43)
[2021-05-31] MEDS: SIMETHICONE 80 MG CHEWABLE PO SCH ×4 (07:43→22:12)
[2021-05-31] MEDS: ASCORBIC ACID 500 MG TAB PO SCH (07:44)
[2021-05-31] MEDS: MULTIVITAMINS, THERA 1 EACH TAB PO SCH (07:44)
[2021-05-31] MEDS: POTASSIUM CHLORIDE ER 20 MEQ TAB.ER PO SCH ×2 (07:44→20:23)
[2021-05-31] MEDS: FERROUS SULFATE 325 MG TAB PO SCH (07:44)
[2021-05-31] MEDS: APIXABAN 5 MG TAB PO SCH ×2 (07:44→20:22)
[2021-05-31] MEDS: FUROSEMIDE 10 MG/ML 2 ML VIAL IV SCH ×2 (07:44→17:22)
[2021-05-31] MEDS: AMIODARONE 200 MG TAB PO SCH ×2 (07:44→20:22)
[2021-05-31 07:46] LABS: HCT 26.6 % (39.0-53.0); HGB 8.4 gm/dL (13.0-17.5); Hypochromasia Moderate; MCH 31.4 pg (25.0-35.0); MCHC 31.7 g/dL (31.0-37.0); MCV 99.1 fL (80.0-100.0); Macrocytosis Slight; Mean Platelet Volume 7.1; Platelet Count 452 k/uL (150-450); Poikilocytosis Slight; RBC 2.68 m/uL (4.30-5.90); WBC 10.3 k/uL (3.8-10.6)
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
[2021-05-31 07:59] LABS: ALT 76 U/L (4-49); AST 58 U/L (17-59); African American GFR (CKD) >90 (>60 ml/min/1.73 sqM); Alkaline Phosphatase 77 U/L (38-126); Anion Gap 5 mmol/L; Blood Urea Nitrogen 12 mg/dL (9-20); Carbon Dioxide 32 mmol/L (22-30); Chloride 95 mmol/L (98-107); Glucose 100 mg/dL (74-99); Non-African American GFR(CKD) 81 (>60 ml/min/1.73 sqM); Potassium 3.4 mmol/L (3.5-5.1); Sodium 132 mmol/L (137-145); Total Bilirubin 0.9 mg/dL (0.2-1.3)
--- NOTE | 2021-05-31 09:04 | XR ---
EXAMINATION TYPE: XR chest 2V DATE OF EXAM: 05/31/2021 COMPARISON: X-ray dated 05/30/2021 HISTORY: Post cardiac surgery TECHNIQUE: Frontal and lateral views of the chest are obtained. FINDINGS: No appreciable interval changes regarding the previously seen cardiomegaly, left chest wall single le ad pacemaker, sternotomy wire sutures, cardiac valve prosthesis and the left atrial appendage clip. Slightly improved pulmonary vascular congestion, yet still appreciated with bilateral basal subsegmen jet pulmonary atelectasis. Improved pleural effusions yet still appreciated. Unchanged bony thoracic cage. Nonspecific gaseous distention of the small bowel in the upper abdomen, please correlate clinically. IMPRESSION: Minimal interval changes as described above.
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
[2021-05-31 11:53] LABS: Glucose,Whole Blood 121 mg/dL (75-99)
[2021-05-31] MEDS ORDERED: POTASSIUM CHLORIDE ER 20 MEQ TAB.ER PO ONE (12:00)
[2021-05-31 16:20] LABS: Glucose,Whole Blood 136 mg/dL (75-99)
[2021-05-31 20:21] LABS: Glucose,Whole Blood 157 mg/dL (75-99)
[2021-05-31] MEDS: SENNOSIDES-DOCUSATE SODIUM 1 EACH TAB PO SCH (20:22)
[2021-05-31] MEDS: ATORVASTATIN 10 MG TAB PO SCH (20:26)
[2021-06-01 06:52] LABS: Glucose,Whole Blood 106 mg/dL (75-99)
--- NOTE | 2021-06-01 08:04 | XR ---
EXAMINATION TYPE: XR chest 2V DATE OF EXAM: 06/01/2021 COMPARISON: X-ray dated 05/31/2021 HISTORY: Post cardiac surgery TECHNIQUE: Frontal and lateral views of the chest are obtained. FINDINGS: Persistent cardiomegaly, cardiac valve prosthesis, left atrial appendage clip, sternotomy wire suture s and left upper chest wall single lead pacemaker. Improved pulmonary vascular congestion with persis tent small basal pulmonary atelectasis, larger on the left side. Persistent pleural effusions, more on the left side. Newly seen opacity superimposed on the right upp er lung zone, likely artifactual. No definite pneumothorax. Persistent nonspecific gaseous distention of the small bowel in the upper abdomen, please correlate clinically. IMPRESSION: Minimal interval changes as described above.
--- NOTE | 2021-06-01 08:04 | CDI ---
Documentation Clarification Form Date: 06/01/2021 07:45:04 AM From: Kaylie Curiel CCS, CCDS Admit Date: 05/19/2021 05:41:00 AM Patient Name: Jerel Schwarz Visit Number: [id number] Discharge Date: ATTENTION: The Clinical Documentation Specialists (CDI) and [facility] Coding Staff appreciate your assistance in clarifying documentation. Please respond to the clarification below the line at the bottom and electronically sign. The CDI & [facility] Coding staff will review the response and follow-up if needed. Please note: Queries are made part of the Legal Health Record. If you have any questions, please contact the author of this message via ITS. Dr. Monica Trevino: CHF without further specificity is documented in the following Pulmonary/Critical Care Progress Notes on 05/24 through 05/30: Otherwise, his repeat chest x-ray from today shows cardiomegaly and CHF and the patient has a pacemaker in place. Additional information regarding the Type & Acuity of CHF is requested. History/Risk Factors per the Pulmonary/Critical Care Consult 05/19: Atrial Fibrillation, Hypertension, Hyperlipidemia, Mild CAD, Sleep Apnea, Mitral & Triscupid Valve Regurgitation, Head Injuries x2. Clinical Indicators: Presented 05/19 for elective surgery for the following: Aortic valve tumor, mitral regurgitation, tricuspid regurgitation, chronic persistent atrial fibrillation. 05/19 Procedure: Resection of aortic valve tumor, mitral valve annuloplasty, tricuspid valve annuloplasty, modified biatrial Butler maze with occlusion of left atrial appendage with a 40 mm AtriCure clip, epi-aortic ultrasonography. 05/24 VS: T 98.4, P 70, R 30, BP 106/62, PO 92 2Lnc, BMI: 36.2 05/24 LAB: RBC 1.98, Hgb 6.6, Hct 20.3; Na 131, CO2 19, BUN 25, Glucose 122, Calcium 7.9, AST 65, Total Protein 5.7, Albumin 3.3 BNP: not done 05/25 ECHO: Limited study. Overall left ventricular systolic function is low normal with EF 50-55%, Mild MR, Mitral ring annulloplasty in place, Trace TR, Small to moderate effusion. 05/19 CXR: Patchy atelectasis similar to exam 10 hrs ago. No heart failure. 05/20 CXR: Questionable small left pleural effusion. 05/22 CXR: Persistent cardiomegaly. 05/24 CXR: Persistent cardiomegaly & mild central vascular congestion, low lung volumes with left > right bibasilar atelectasis and/or infiltrates. 05/25 CXR: Correlate for volume overload or early CHF 05/27 CXR: Continued moderate cardiomegaly, pulmonary vascular congestion, and small pleural effusions with adjacent atelectasis and/or consolidation. 05/27 US Chest: Small bilateral pleural effusions w/underlying atelectasis. Treatment: Remains in ICU on 06/01, continued on Aspirin, Statin, Beta blockers, Amiodarone & Eliquis, Bronchodilators, Incentive Spirometry. IV Lasix was given beginning on 05/22 through 05/31: 20 mg I & IV push q12 hrs. On 05/30 given dose of Zaroxolyn. In your professional opinion, can you please clarify the Type & Acuity of CHF if present? [ ] Acute Diastolic Heart Failure [ ] Acute Systolic & Diastolic Heart Failure [ ] Heart Failure is ruled out [ ] Other, please specify: Chronic heart failure, preserved LV [ ] Unable to determine (Template Last Revised: March 2020) MTDD
[2021-06-01 08:06] LABS: HCT 27.2 % (39.0-53.0); HGB 8.5 gm/dL (13.0-17.5); Hypochromasia Moderate; MCH 31.3 pg (25.0-35.0); MCHC 31.4 g/dL (31.0-37.0); MCV 99.6 fL (80.0-100.0); Macrocytosis Slight; Mean Platelet Volume 7.1; Platelet Count 492 k/uL (150-450); Poikilocytosis Slight; RBC 2.73 m/uL (4.30-5.90); WBC 8.8 k/uL (3.8-10.6)
[2021-06-01 08:25] LABS: African American GFR (CKD) >90 (>60 ml/min/1.73 sqM); Anion Gap 9 mmol/L; Blood Urea Nitrogen 12 mg/dL (9-20); Carbon Dioxide 29 mmol/L (22-30); Chloride 98 mmol/L (98-107); Glucose 104 mg/dL (74-99); Magnesium 1.9 mg/dL (1.6-2.3); Non-African American GFR(CKD) 81 (>60 ml/min/1.73 sqM); Potassium 3.9 mmol/L (3.5-5.1); Sodium 136 mmol/L (137-145)
[2021-06-01] MEDS: IPRATROPIUM-ALBUTEROL 3 ML NEB INHALATION SCH ×4 (08:58→18:57)
[2021-06-01] MEDS ORDERED: POTASSIUM CHLORIDE ER 20 MEQ TAB.ER PO SCH (09:00)
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
[2021-06-01] MEDS: PANTOPRAZOLE 40 MG TABLET PO SCH (09:13)
[2021-06-01] MEDS: INSULIN ASPART (NovoLOG) 100 UNIT/ML VIAL SQ SCH ×4 (09:13→20:23)
[2021-06-01] MEDS: FUROSEMIDE 10 MG/ML 2 ML VIAL IV SCH ×2 (09:13→17:13)
[2021-06-01] MEDS: MAGNESIUM SULFATE-D5W PMX 1 GM in DEXTROSE/WATER 1 100ML.BAG IVPB SCH ×2 (09:14→10:56)
[2021-06-01] MEDS: POTASSIUM CHLORIDE ER 20 MEQ TAB.ER PO SCH ×2 (09:14→20:22)
[2021-06-01] MEDS: METOPROLOL TARTRATE 12.5 MG TAB PO SCH ×2 (09:15→20:23)
[2021-06-01] MEDS: SIMETHICONE 80 MG CHEWABLE PO SCH ×4 (09:18→22:23)
[2021-06-01] MEDS: AMIODARONE 200 MG TAB PO SCH ×2 (09:18→20:23)
[2021-06-01] MEDS: ASPIRIN 81 MG PO SCH (09:18)
[2021-06-01] MEDS: MULTIVITAMINS, THERA 1 EACH TAB PO SCH (09:18)
[2021-06-01] MEDS: APIXABAN 5 MG TAB PO SCH ×2 (09:19→20:22)
--- NOTE | 2021-06-01 09:52 | P.PN ---
Subjective Progress Note Date: 06/01/21 A 75-year-old male patient is currently postop day #6. The patient underwent a aortic valve tumor resection along with a repair of a mitral regurgitation and tricuspid valve regurgitation with mitral valve annuloplasty and tricuspid valve annuloplasty and modified by 8 she'll Butler-Maze procedure. Overnight, the patient did have some confusion. He had about to fall and he had a trauma to his head. This morning, he seems to be more appropriate although I been told that the patient has been having episodes of confusion. Patient is moving all 4 extremities without any limitation. He was aware of his location and he was oriented to self and place. No focal neurological deficits. No headaches to no loss of consciousness. He remains on oxygen at 2 L per minute nasal cannula. He is using incentive spirometer pulling approximately 1500 on his I asked. Otherwise, his repeat chest x-ray from today shows cardiomegaly and CHF and the patient has a pacemaker in place. Current cardiac rhythm rate of 70. He remains on 2 L about 2 by nasal cannula. CAT scan of the brain showed no acute abnormalities. The white cell count at 6.6 and the patient is going to be transfused with a unit of packed RBC. No hematoma formation and no signs of any active bleeding. Platelet count is at 179 and the patient has a white cell count 9.3. He is at 25 with a creatinine of 1.1. No other significant events overnight. On today's evaluation of 05/25/2021, the patient is postop day #7. The patient remains somewhat confused. Not agitated. The patient has undergone aortic valve tumor resection in addition to a mitral valve repair and tricuspid valve repair with annuloplasty. Overall, the patient's hemodynamically stable. The patient received a unit of packed RBC yesterday for a hemoglobin of 6.6 and a hemoglobin after receiving a total of 2 units is up to 8.3. Patient is currently on 2 L of O2 nasal cannula and the patient's cardiac rhythm is a sitter rate of 70 and the patient has a pacemaker in place. The patient is using incentive spirometer. The patient is pulling approximately 1250 mL. The input output balance is been -470 mL over the past 24 hours. The chest x-ray showing cardiomegaly. There is some mild pulmonary vascular congestion patient remains on IV Lasix. The creatinine is at 0.8 with a sodium level of 136 and a potassium level of 3.7. The patient is moving all 4 extremities without any limitation. No other significant events otherwise for now. 05/26/2021, the patient is postop day #8. No new complaints. In the patient'sCondition is stable for now. The patient has no hemodynamic changes. The patient's chest x-ray was showing cardiomegaly. Based on that, an echo was done yesterday and showed small to moderate-sized pericardial effusion, moderate MR, trace TR, the patient remains on Lasix 20 mg IV every 12 hours. Overall fluid balance negative on 65 mL over the past 24 hours. The hemoglobin is at 8.5. B is a 70 with a creatinine of 0.8 and sodium is at 133 and the patient is currently on 2 L of oxygen by nasal cannula. Cardiac rhythm remains paced. He is using incentive spirometer pulling 1200 cc on the incentive spirometer. No nausea. No vomiting. No chest pain. No headaches. No other complaints otherwise for now. The patient is seen today 05/27/2021 in follow-up in the intensive care unit. Postoperative day #9. He is sitting up in a chair at the bedside. Awake and alert in no acute distress. He is maintaining good O2 saturations in the 90s on 3 L/m per nasal cannula. He is still having some issues with confusion. Chest x-ray reveals moderate cardiomegaly, pulmonary vascular congestion and small bilateral pleural effusions/atelectasis. Possibly a trace 8 mm left apical pneumothorax. He is status post 4 units of packed red blood cells this admission. White count 10.2. Hemoglobin 8.3. Platelets 331. Sodium 133. Potassium 3.4. BUN 816. Creatinine 0.88. Glucose 99. Urinalysis clean. He continues to work well with the incentive spirometer. Pulling approximately 1000 ML's. He remains on DuoNeb inhalations. Currently in atrial fibrillation with occasional PVCs and a controlled ventricular rate. He is continued on amiodarone at the plan is to resume his eloquent's prior to his discharge. He is continued on IV diuretics. Currently in a -175 ML balance. Patient is seen today 06/01/2021 in follow-up in the intensive care unit. He is currently sitting up in a chair at the bedside. Awake and alert in no acute distress. He is maintaining good O2 saturations in the 90s on room air. Chest x-ray continues to show some atelectatic changes in the left lung base. There is also noted increased bowel loops. The patient has been having issues with diarrhea lately. Plan is for C. difficile evaluation. He is still having some issues with confusion. Working well with the incentive spirometer with assistance. He remains in atrial fibrillation with a controlled ventricular response. He is status post a total of 4 units of packed red blood cells this admission. Current hemoglobin 8.5. White count 8.8. Platelets 492. Sodium 136. Potassium 3.9. BUN 12. Creatinine 0.93. Glucose 104. He is continued on bronchodilators. Anticoagulated with Eliquis. Remains on IV diuretics with potassium supplements. Currently in a -500 ML balance. Objective - Vital Signs Vital signs: Vital Signs Temp 98.4 F 06/01/21 08:00 Pulse 86 06/01/21 09:08 Resp 18 06/01/21 09:00 BP 94/65 06/01/21 09:00 Pulse Ox 94 L 06/01/21 09:00 Intake & Output 05/31/21 06/01/21 06/01/21 18:59 06:59 18:59 Intake Total 420 340 Output Total 390 880 Balance 30 -540 Weight 89.7 kg Intake: Oral 420 340 Output: Urine 390 880 Other: Voiding Method Urinal Urinal Urinal # Voids 1 1 ABP, PAP, CO, CI - Last Documented Arterial Blood Pressure 87/40 Pulmonary Artery Pressure 37/14 Cardiac Output 6.3 Cardiac Index 3.3 - Exam CONSTITUTIONAL: Alert pleasant 76-year-old gentleman, up in a chair at the bedside, in the intensive care unit, on room air with O2 saturations in the 90s, comfortable, cooperative, no apparent acute distress. HEENT: Neck is supple, no JVD, no lymphadenopathy. RESPIRATORY: Lungs sounds essentially clear throughout, diminished to his bilateral bases with few scattered crackles. Respirations are symmetrical and nonlabored. Currently on room air with O2 saturations at 94%. Able to achieve 1000 mL on his incentive spirometry. Strong cough. CARDIOVASCULAR: Irrgular rhythm and rate. S1 and S2 present, negative for S3, gallop or murmur. Sternum is stable. Palpable peripheral pulses bilaterally. No calf pain or tenderness noted. Heart hugger in place with patient demon strating appropriate use with encouragement. Knee-high SONIA hose and sequential compression devices in place to his bilateral lower extremities. GASTROINTESTINAL: Abdomen soft, nontender, and slightly distended. Active bowel sounds present 4 quadrants. Tolerating diet. No guarding or rigidity. GENITOURINARY: Continues to void. INTEGUMENTARY: Skin is warm and dry with no evidence of clubbing or cyanosis. Midline sternal incision clean dry and well approximated, covered with dry intact dressing. NEUROLOGIC: Cranial nerves II through XII intact. No focal deficits. MUSKULOSKELETAL: Able to move all extremities, strength equal bilaterally, generalized weakness. PSYCHIATRIC: Alert and oriented with occasional episodes of confusion, appropriate affect, intact judgment and insight. - Labs CBC & Chem 7: 06/01/21 07:15 06/01/21 07:15 Labs: Abnormal Lab Results - Last 24 Hours (Table) 05/31/21 05/31/21 05/31/21 Range/Units 11:51 16:18 20:19 RBC (4.30-5.90) m/uL Hgb (13.0-17.5) gm/dL Hct (39.0-53.0) % Plt Count (150-450) k/uL Sodium (137-145) mmol/L Glucose (74-99) mg/dL POC Glucose (mg/dL) 121 H 136 H 157 H (75-99) mg/dL Calcium (8.4-10.2) mg/dL 06/01/21 06/01/21 06/01/21 Range/Units 06:51 07:15 07:15 RBC 2.73 L (4.30-5.90) m/uL Hgb 8.5 L (13.0-17.5) gm/dL Hct 27.2 L (39.0-53.0) % Plt Count 492 H (150-450) k/uL Sodium 136 L (137-145) mmol/L Glucose 104 H (74-99) mg/dL POC Glucose (mg/dL) 106 H (75-99) mg/dL Calcium 8.0 L (8.4-10.2) mg/dL Assessment and Plan Assessment: 1 Mitral valve and tricuspid valve annuloplasty and resection of an aortic valve tumor. The patient is hemodynamically stable. The patient is not having any respiratory distress at this point in time. Chest x-ray from today showing cardiomegaly. Limited echocardiogram was completed and showed a [id number] pericardial effusion, moderate MR, mild TR and the patient continues to be on diuretics. 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 Status post 4 units of packed red blood cells this admission. The follow-up hemoglobin currently is up to 8.5 6 Nonobstructive coronary artery disease, symptomatically at this point in time 7 Hypertension 8 Hyperlipidemia 9 Obstructive sleep apnea, not using any form of CPAP therapy 10 History of closed head injury back in 2010 11 History of permanent pacemaker insertion May 2020 12 Diarrhea Plan The patient was seen and evaluated Chest x-ray and labs reviewed Continue IV diuretics, bronchodilators Evaluate for possible C. diff Stable and on room air Increase his activity as tolerated Plan is for subacute rehab post discharge We will continue to follow I have personally seen and examined the patient, performed the documentation and the assessment and plan as written. Number of minutes spent on the visit: 10.
[2021-06-01 11:44] LABS: Glucose,Whole Blood 145 mg/dL (75-99)
[2021-06-01] MEDS: ASCORBIC ACID 500 MG TAB PO SCH (11:59)
[2021-06-01] MEDS: FERROUS SULFATE 325 MG TAB PO SCH (11:59)
[2021-06-01 16:17] LABS: Glucose,Whole Blood 118 mg/dL (75-99)
[2021-06-01 20:03] LABS: Glucose,Whole Blood 148 mg/dL (75-99)
[2021-06-01] MEDS: SENNOSIDES-DOCUSATE SODIUM 1 EACH TAB PO SCH (20:22)
[2021-06-01] MEDS: ATORVASTATIN 10 MG TAB PO SCH (20:23)
[2021-06-02 00:23] VITALS: TEMP 98.9
[2021-06-02 06:31] LABS: HCT 27.8 % (39.0-53.0); HGB 8.5 gm/dL (13.0-17.5); Hypochromasia Marked; MCH 31.3 pg (25.0-35.0); MCHC 30.8 g/dL (31.0-37.0); MCV 101.6 fL (80.0-100.0); Macrocytosis Slight; Mean Platelet Volume 7.5; Platelet Count 521 k/uL (150-450); RBC 2.73 m/uL (4.30-5.90); RDW 15.1 % (11.5-15.5); WBC 9.1 k/uL (3.8-10.6)
[2021-06-02] MEDS: INSULIN ASPART (NovoLOG) 100 UNIT/ML VIAL SQ SCH ×2 (06:35→13:21)
[2021-06-02 06:36] LABS: Glucose,Whole Blood 105 mg/dL (75-99)
[2021-06-02] MEDS: PANTOPRAZOLE 40 MG TABLET PO SCH (06:37)
[2021-06-02 06:49] LABS: ALT 57 U/L (4-49); AST 47 U/L (17-59); African American GFR (CKD) >90 (>60 ml/min/1.73 sqM); Alkaline Phosphatase 77 U/L (38-126); Anion Gap 8 mmol/L; Blood Urea Nitrogen 12 mg/dL (9-20); Calcium 8.2 mg/dL (8.4-10.2); Carbon Dioxide 28 mmol/L (22-30); Chloride 99 mmol/L (98-107); Glucose 94 mg/dL (74-99); Magnesium 2.2 mg/dL (1.6-2.3); Non-African American GFR(CKD) 79 (>60 ml/min/1.73 sqM); Potassium 4.5 mmol/L (3.5-5.1); Sodium 135 mmol/L (137-145); Total Bilirubin 0.8 mg/dL (0.2-1.3); Total Protein 6.1 g/dL (6.3-8.2)
--- NOTE | 2021-06-02 08:08 | XR ---
EXAMINATION TYPE: XR chest 1V portable DATE OF EXAM: 06/02/2021 COMPARISON: X-ray dated 06/01/2021 HISTORY: Post cardiac surgery TECHNIQUE: Single frontal view of the chest is obtained. FINDINGS: Persistent increased cardiac transverse diameter, associated pericardial effusion cannot b e excluded. Unchanged cardiac valve prosthesis, left atrial appendage clip, sternotomy sutures and le ft upper chest wall single lead pacemaker. Persistent opacity in the left mid to lower lung zone. Questionable new infiltration/atelectasis in t he right lung base, attention on follow-up. Persistent small pleural effusions. No definite pneumotho rax. Unchanged bony thoracic cage. IMPRESSION: Interval changes as described above.
[2021-06-02] MEDS: IPRATROPIUM-ALBUTEROL 3 ML NEB INHALATION SCH ×2 (08:35→11:42)
[2021-06-02] MEDS ORDERED: POTASSIUM CHLORIDE ER 20 MEQ TAB.ER PO SCH (09:00)
[2021-06-02] MEDS: POTASSIUM CHLORIDE ER 20 MEQ TAB.ER PO SCH (09:42)
[2021-06-02] MEDS: FUROSEMIDE 10 MG/ML 2 ML VIAL IV SCH (09:42)
[2021-06-02] MEDS: MULTIVITAMINS, THERA 1 EACH TAB PO SCH (09:42)
[2021-06-02] MEDS: APIXABAN 5 MG TAB PO SCH (09:42)
[2021-06-02] MEDS: ASPIRIN 81 MG PO SCH (09:42)
[2021-06-02] MEDS: METOPROLOL TARTRATE 12.5 MG TAB PO SCH (09:42)
[2021-06-02] MEDS: AMIODARONE 200 MG TAB PO SCH (09:42)
[2021-06-02] MEDS: SIMETHICONE 80 MG CHEWABLE PO SCH ×2 (09:43→13:21)
--- NOTE | 2021-06-02 10:36 | P.PN ---
Subjective Progress Note Date: 06/02/21 A 75-year-old male patient is currently postop day #6. The patient underwent a aortic valve tumor resection along with a repair of a mitral regurgitation and tricuspid valve regurgitation with mitral valve annuloplasty and tricuspid valve annuloplasty and modified by 8 she'll Butler-Maze procedure. Overnight, the patient did have some confusion. He had about to fall and he had a trauma to his head. This morning, he seems to be more appropriate although I been told that the patient has been having episodes of confusion. Patient is moving all 4 extremities without any limitation. He was aware of his location and he was oriented to self and place. No focal neurological deficits. No headaches to no loss of consciousness. He remains on oxygen at 2 L per minute nasal cannula. He is using incentive spirometer pulling approximately 1500 on his I asked. Otherwise, his repeat chest x-ray from today shows cardiomegaly and CHF and the patient has a pacemaker in place. Current cardiac rhythm rate of 70. He remains on 2 L about 2 by nasal cannula. CAT scan of the brain showed no acute abnormalities. The white cell count at 6.6 and the patient is going to be transfused with a unit of packed RBC. No hematoma formation and no signs of any active bleeding. Platelet count is at 179 and the patient has a white cell count 9.3. He is at 25 with a creatinine of 1.1. No other significant events overnight. On today's evaluation of 05/25/2021, the patient is postop day #7. The patient remains somewhat confused. Not agitated. The patient has undergone aortic valve tumor resection in addition to a mitral valve repair and tricuspid valve repair with annuloplasty. Overall, the patient's hemodynamically stable. The patient received a unit of packed RBC yesterday for a hemoglobin of 6.6 and a hemoglobin after receiving a total of 2 units is up to 8.3. Patient is currently on 2 L of O2 nasal cannula and the patient's cardiac rhythm is a sitter rate of 70 and the patient has a pacemaker in place. The patient is using incentive spirometer. The patient is pulling approximately 1250 mL. The input output balance is been -470 mL over the past 24 hours. The chest x-ray showing cardiomegaly. There is some mild pulmonary vascular congestion patient remains on IV Lasix. The creatinine is at 0.8 with a sodium level of 136 and a potassium level of 3.7. The patient is moving all 4 extremities without any limitation. No other significant events otherwise for now. 05/26/2021, the patient is postop day #8. No new complaints. In the patient'sCondition is stable for now. The patient has no hemodynamic changes. The patient's chest x-ray was showing cardiomegaly. Based on that, an echo was done yesterday and showed small to moderate-sized pericardial effusion, moderate MR, trace TR, the patient remains on Lasix 20 mg IV every 12 hours. Overall fluid balance negative on 65 mL over the past 24 hours. The hemoglobin is at 8.5. B is a 70 with a creatinine of 0.8 and sodium is at 133 and the patient is currently on 2 L of oxygen by nasal cannula. Cardiac rhythm remains paced. He is using incentive spirometer pulling 1200 cc on the incentive spirometer. No nausea. No vomiting. No chest pain. No headaches. No other complaints otherwise for now. The patient is seen today 05/27/2021 in follow-up in the intensive care unit. Postoperative day #9. He is sitting up in a chair at the bedside. Awake and alert in no acute distress. He is maintaining good O2 saturations in the 90s on 3 L/m per nasal cannula. He is still having some issues with confusion. Chest x-ray reveals moderate cardiomegaly, pulmonary vascular congestion and small bilateral pleural effusions/atelectasis. Possibly a trace 8 mm left apical pneumothorax. He is status post 4 units of packed red blood cells this admission. White count 10.2. Hemoglobin 8.3. Platelets 331. Sodium 133. Potassium 3.4. BUN 816. Creatinine 0.88. Glucose 99. Urinalysis clean. He continues to work well with the incentive spirometer. Pulling approximately 1000 ML's. He remains on DuoNeb inhalations. Currently in atrial fibrillation with occasional PVCs and a controlled ventricular rate. He is continued on amiodarone at the plan is to resume his eloquent's prior to his discharge. He is continued on IV diuretics. Currently in a -175 ML balance. Patient is seen today 06/01/2021 in follow-up in the intensive care unit. He is currently sitting up in a chair at the bedside. Awake and alert in no acute distress. He is maintaining good O2 saturations in the 90s on room air. Chest x-ray continues to show some atelectatic changes in the left lung base. There is also noted increased bowel loops. The patient has been having issues with diarrhea lately. Plan is for C. difficile evaluation. He is still having some issues with confusion. Working well with the incentive spirometer with assistance. He remains in atrial fibrillation with a controlled ventricular response. He is status post a total of 4 units of packed red blood cells this admission. Current hemoglobin 8.5. White count 8.8. Platelets 492. Sodium 136. Potassium 3.9. BUN 12. Creatinine 0.93. Glucose 104. He is continued on bronchodilators. Anticoagulated with Eliquis. Remains on IV diuretics with potassium supplements. Currently in a -500 ML balance. The patient is seen today 06/02/2021 in follow-up in the intensive care unit. He is currently sitting up in a chair at the bedside. Awake and alert in no acute distress. He's been up ambulating in the hallways and only requiring standby not having to sit down to walk the whole ICU. He is maintaining good O2 saturations in the 90s on room air. Chest x-ray continues to show persistent opacity in the left midlung and lower lung zone. There is some infiltrate/atelectasis of the right lung base. He was given Lasix 20 mg IV push this morning. 200 mL of urine output thus far. White count 9.1. Hemoglobin 8.5. Platelets 521. Sodium 135. Potassium 4.5. Bicarb 28. BUN 12. Creatinine 0.95. Glucose 105. He is working well with the incentive spirometer. He remains on bronchodilators. Continued in sinus rhythm with a controlled ventricular response. He remains on amiodarone. Anticoagulated with Eliquis. Objective - Vital Signs Vital signs: Vital Signs Temp 98.9 F 06/02/21 04:00 Pulse 85 06/02/21 08:44 Resp 19 06/02/21 07:00 BP 113/68 06/02/21 07:00 Pulse Ox 94 L 06/02/21 07:00 Intake & Output 06/01/21 06/02/21 06/02/21 18:59 06:59 18:59 Intake Total 700 Output Total 500 400 Balance 200 -400 Weight 90.5 kg Intake: Intake, IV Titration 200 Amount Magnesium Sulfate-D5w Pmx 200 1 gm In Dextrose/Water 1 100ml.bag @ 100 mls/hr IVPB Q1H [facility] Rx#: [id number] Oral 500 Output: Urine 500 400 Other: Voiding Method Urinal Urinal # Voids 1 ABP, PAP, CO, CI - Last Documented Arterial Blood Pressure 87/40 Pulmonary Artery Pressure 37/14 Cardiac Output 6.3 Cardiac Index 3.3 - Exam CONSTITUTIONAL: Alert pleasant 76-year-old gentleman, on room air with O2 saturations in the 90s, comfortable, cooperative, no apparent acute distress. HEENT: Neck is supple, no JVD, no lymphadenopathy. RESPIRATORY: Lungs sounds essentially clear throughout, diminished to his bi lateral bases with few scattered crackles. Respirations are symmetrical and nonlabored. Currently on room air with O2 saturations at 94%. Able to achieve 1000 mL on his incentive spirometry. Strong cough. CARDIOVASCULAR: Irrgular rhythm and rate. S1 and S2 present, negative for S3, gallop or murmur. Sternum is stable. Palpable peripheral pulses bilaterally. No calf pain or tenderness noted. Heart hugger in place with patient demonstrating appropriate use with encouragement. Knee-high SONIA hose and sequential compression devices in place to his bilateral lower extremities. GASTROINTESTINAL: Abdomen soft, nontender, and slightly distended. Active bowel sounds present 4 quadrants. Tolerating diet. No guarding or rigidity. GENITOURINARY: Continues to void. INTEGUMENTARY: Skin is warm and dry with no evidence of clubbing or cyanosis. Midline sternal incision clean dry and well approximated, covered with dry intact dressing. NEUROLOGIC: Cranial nerves II through XII intact. No focal deficits. MUSKULOSKELETAL: Able to move all extremities, strength equal bilaterally, generalized weakness. PSYCHIATRIC: Alert and oriented with occasional episodes of confusion, jannet ropriate affect, intact judgment and insight. - Labs CBC & Chem 7: 06/02/21 05:26 06/02/21 05:26 Labs: Abnormal Lab Results - Last 24 Hours (Table) 06/01/21 06/01/21 06/01/21 Range/Units 11:43 16:15 20:02 RBC (4.30-5.90) m/uL Hgb (13.0-17.5) gm/dL Hct (39.0-53.0) % MCV (80.0-100.0) fL MCHC (31.0-37.0) g/dL Plt Count (150-450) k/uL Sodium (137-145) mmol/L POC Glucose (mg/dL) 145 H 118 H 148 H (75-99) mg/dL Calcium (8.4-10.2) mg/dL ALT (4-49) U/L Total Protein (6.3-8.2) g/dL Albumin (3.5-5.0) g/dL 06/02/21 06/02/21 06/02/21 Range/Units 05:26 05:26 06:34 RBC 2.73 L (4.30-5.90) m/uL Hgb 8.5 L (13.0-17.5) gm/dL Hct 27.8 L (39.0-53.0) % MCV 101.6 H (80.0-100.0) fL MCHC 30.8 L (31.0-37.0) g/dL Plt Count 521 H (150-450) k/uL Sodium 135 L (137-145) mmol/L POC Glucose (mg/dL) 105 H (75-99) mg/dL Calcium 8.2 L (8.4-10.2) mg/dL ALT 57 H (4-49) U/L Total Protein 6.1 L (6.3-8.2) g/dL Albumin 3.0 L (3.5-5.0) g/dL Assessment and Plan Assessment: 1 Mitral valve and tricuspid valve annuloplasty and resection of an aortic valve tumor. The patient is hemodynamically stable. The patient is not having any respiratory distress at this point in time. Chest x-ray showing cardiomegaly, persistent infiltrate/atelectasis of the lung bases.. Limited echocardiogram was completed and showed a [id number] pericardial effusion, moderate MR, mild TR and the patient continues to be on diuretics. 2 Post thoracotomy, currently on room air, stable, using incentive spirometer 3 Chronic atrial fibrillation, maintained on Eliquis 4 Confusion/delirium with a fall, no evidence of any acute [employer] injury and a CAT scan of the brain has been negative 5 Acute anemia, expected outcome of surgery. Status post 4 units of packed red blood cells this admission. 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 Number of minutes spent on the visit: 10.
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
[2021-06-02 11:38] LABS: Glucose,Whole Blood 138 mg/dL (75-99)
[2021-06-02] MEDS: ASCORBIC ACID 500 MG TAB PO SCH (13:21)
[2021-06-02] MEDS: FERROUS SULFATE 325 MG TAB PO SCH (13:21)
[2021-06-02 13:39] VITALS: BMI 36.5
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
[2021-06-02 15:06] VITALS: BP 109/65; PULSE 99; RESP 20
== END 2021-06-02 15:42 | disposition home health service (06) | DRG 220 ==
LOC: 2ORMAIN 05:41 → 2SICU 12:54
PROVIDERS: ADMIT Thoracic Surgery (Cardiothoracic Vascular Surgery); ATTEND Thoracic Surgery (Cardiothoracic Vascular Surgery)
PROC: 3E043XZ Introduction of Vasopressor into Central Vein, Percutaneous Approach (ICD-10-PCS; 2021-05-19)
PROC: 30243N1 Transfusion of Nonautologous Red Blood Cells into Central Vein, Percutaneous Approach (ICD-10-PCS; 2021-05-19)
PROC: 02UJ0JZ Supplement Tricuspid Valve with Synthetic Substitute, Open Approach (ICD-10-PCS; principal; 2021-05-19 08:00)
PROC: 02BF0ZZ Excision of Aortic Valve, Open Approach (ICD-10-PCS; principal; 2021-05-19 08:00)
PROC: 02UG0JZ Supplement Mitral Valve with Synthetic Substitute, Open Approach (ICD-10-PCS; principal; 2021-05-19 08:00)
PROC: 5A1221Z Performance of Cardiac Output, Continuous (ICD-10-PCS; principal; 2021-05-19 08:00)
PROC: 02580ZZ Destruction of Conduction Mechanism, Open Approach (ICD-10-PCS; principal; 2021-05-19 08:00)
PROC: 02L70CK Occlusion of Left Atrial Appendage with Extraluminal Device, Open Approach (ICD-10-PCS; principal; 2021-05-19 08:00)
PROC: 0W380ZZ Control Bleeding in Chest Wall, Open Approach (ICD-10-PCS; 2021-05-19 08:00)
PROC: B24BZZ4 Ultrasonography of Heart with Aorta, Transesophageal (ICD-10-PCS; 2021-05-19 08:00)
DX: I42.4 Endocardial fibroelastosis (principal); I48.19 Other persistent atrial fibrillation; I31.3 Pericardial effusion (noninflammatory); I50.32 Chronic diastolic (congestive) heart failure; D62 Acute posthemorrhagic anemia; J98.11 Atelectasis; I97.618 Postprocedural hemorrhage of a circulatory system organ or structure following other circulatory system procedure; I11.0 Hypertensive heart disease with heart failure; I95.9 Hypotension, unspecified; I08.1 Rheumatic disorders of both mitral and tricuspid valves; I25.10 Atherosclerotic heart disease of native coronary artery without angina pectoris; E78.5 Hyperlipidemia, unspecified; E78.00 Pure hypercholesterolemia, unspecified; G47.33 Obstructive sleep apnea (adult) (pediatric); I49.3 Ventricular premature depolarization; K31.89 Other diseases of stomach and duodenum; R41.0 Disorientation, unspecified; R32 Unspecified urinary incontinence; R19.7 Diarrhea, unspecified; Z79.01 Long term (current) use of anticoagulants; Z79.82 Long term (current) use of aspirin; Z79.899 Other long term (current) drug therapy; Z86.73 Personal history of transient ischemic attack (TIA), and cerebral infarction without residual deficits; Z86.19 Personal history of other infectious and parasitic diseases; Z90.49 Acquired absence of other specified parts of digestive tract; Z87.19 Personal history of other diseases of the digestive system; Z90.89 Acquired absence of other organs; Z96.643 Presence of artificial hip joint, bilateral; Z96.653 Presence of artificial knee joint, bilateral; Z95.0 Presence of cardiac pacemaker; Z87.39 Personal history of other diseases of the musculoskeletal system and connective tissue; Z98.890 Other specified postprocedural states; Z87.828 Personal history of other (healed) physical injury and trauma; Y83.8 Other surgical procedures as the cause of abnormal reaction of the patient, or of later complication, without mention of misadventure at the time of the procedure; W06.XXXA Fall from bed, initial encounter; Y92.230 Patient room in hospital as the place of occurrence of the external cause; Z82.49 Family history of ischemic heart disease and other diseases of the circulatory system; Z80.9 Family history of malignant neoplasm, unspecified
CPT/HCPCS: 36430; 70450; 71045; 71046; 76604; 80048; 80053; 81003; 82272; 82330; 82805; 83735; 84132; 85025; 85027; 85384; 85520; 85610; 85730; 86850; 86891; 86900; 86901; 86920; 88305; 93308; 94002; 94003; 94640

== ENCOUNTER → 2023-06-19 | Outpatient (CLI) | payer MEDICARE, BC ==
--- NOTE | 2023-06-19 18:19 | XR ---
EXAMINATION TYPE: XR lumbosacral spine min 4V DATE OF EXAM: 06/19/2023 5:17 PM CLINICAL INDICATION:Male, 78 years old with history of [id number] LBP; [facility] COMPARISON: None TECHNIQUE: XR lumbosacral spine min 4V - Frontal, lateral , bilateral oblique and coned in L5-S1 late ral views of the spine. FINDINGS: No evidence of any acute osseous pathology. No evidence of loss of vertebral body height i s seen. There is normal alignment of the lumbar vertebral bodies. Mild scattered disc space narrowing . Multilevel marginal osteophyte formation throughout the visualized spine. There is facet joint arth ropathy throughout the spine. Scattered at least mild neural foraminal stenosis. Bilateral hip arthro plasty changes. Hardware appears intact where visualized. IMPRESSION: 1. No acute fracture. 2. Moderate to severe multilevel disc degeneration.
== END | disposition home or self-care (01) ==
LOC: RADXRYALE 16:57
PROVIDERS: ATTEND Internal Medicine
DX: M51.37 Other intervertebral disc degeneration, lumbosacral region (principal)
CPT/HCPCS: 72110

== ENCOUNTER → 2023-07-24 | Outpatient (CLI) | payer MEDICARE, BC ==
[2023-07-24 13:29] VITALS: BP 144/77; PULSE 79; RESP 16; TEMP 97.8
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
== END ==
LOC: PNWHC3 09:28
PROVIDERS: ATTEND Specialist
DX: M51.36 Other intervertebral disc degeneration, lumbar region (principal); G89.29 Other chronic pain
CPT/HCPCS: 99211

== ENCOUNTER → 2023-08-30 | Outpatient (CLI) | payer MEDICARE, BC ==
[2023-08-30 09:43] VITALS: BP 126/85; PULSE 81; RESP 16; TEMP 97.1
--- NOTE | 2023-08-30 13:58 | P.PAINPG ---
PQRS Measure Charge Sheet Comment: HISTORY OF PRESENT ILLNESS: A 78 yr old male w at side as a referral from Dr Hummel presents today w severe and chronic LBP > 1 yr secondary to DDD, spondylosis and facet arthropathy without myelopathy evaluation. Pt states pain level is provoked at 10 /10 in intensity, intermittent, localized in the lumbar spine, predominantly axial, achy in character w occasional shooting pain towards the BL hips. Pain is provoked by standing/ walking for periods > 10 min. Pain is alleviated by physician guided home exercises every morning since Mar 2023, heat, ice, THC products, CBD oil, repositioning and rest . Oswestry axial pain score at 26. Interventional procedures include Medicaitons include THC products, CBD topical REVIEW OF ORGAN SYSTEMS: CONSTITUTIONAL: No fevers or chills. No recent weight loss. NEUROLOGICAL: + numbness and tingling along the distal extremities. No seizure disorders or headaches. MUSCULOSKELETAL: + pain PSYCHIATRIC: Denies current depression or suicidal thoughts. Physical Examinations : Constitutional : Cooperative , not in acute distress . Neurologic : Cranial nerve II to XII intact. No focal neurological deficits. Psychiatric : alert & oriented x 3. Matching mood & appropriate affect. Judgment & insight intact. Musculoskeletal : Cervical Spine Motor strength in the deltoid and b iceps: Normal right side. Normal Left side Motor strength biceps and the wrist extensors: Normal right side . Normal left side Motor strength in the triceps muscle: Normal right side. Normal left side Deep tendon reflexes: Normal at the biceps. Normal at Brachioradialis. Normal at triceps Vertebral body tenderness to deep palpation over Cervical facet loading test: positive bilaterally Spurling test: positive bilaterally Neck distraction test: positive bilaterally Joseline sign: positive bilaterally Lumbar spine Motor strength lower extremities ,thigh and legs 5/5 Right side , 5/5 Left side Deep tendon reflexes : Normal Knee Jerk. Normal Ankle Jerk Vertebral body tenderness over L5 Oliva Test positive BL L5-S1 Lumbar facet Loading Test: positive Right / positive Left Range of motion of the lumbar spine Flexion 30 degrees, extension 10 degrees Straight Leg Raise test: Left/ Right positive at degrees Michael test: positive right / positive left. Severe tenderness over the Sacroiliac joint on the Right / Left sides Gaenslen test: positive bilaterally Seated flexion test: positive bi laterally. Sacral spine : Severe tenderness over the Sacroiliac joint: right side / left side Range of motion: Flexion of the lumbar spine <60 degrees Range of motion: Extension of the lumbar spine <20 degrees Gaenslen's Test positive Michael test: positive right side / left side Thigh Thrust Test Sacral Thrust Test Imaging: Lumbar x ray from 06/09/23 reviewed MRI non contrast lumbar spine from 08/22/23 from [facility] reviewed Assessment/ Plan : Lumbar DDD Recommendation of MATTHEW L5-S1 #1. May need as series of injections for optimal pain relief. Risks, benefits of procedure discussed and pt verbalized understanding. Protocol for discontinuation/ continuation of medications milind procedure discussed. Diclofenac gel 3% BID w 1 RF and [place] 7.5/325mg #15. NR Use side effects, adverse reactions, safe storage discussed. All questions answered. I have spent greater than 30 minutes on patient care today. Dr Miller was available by phone for the evaluation of this patient. The time was used to review the medical records including relevant urine studies and Prescription history (MAPs), review of the available imaging, evaluation and examination of the patient, coordination of care with the medical staff and if applicable referring physicians, as well as creation of the medical record - Pain Location Bilateral Lower Back Non-Pharmacological Interventions: Heat, Home Exercise, Inactivity, Physical The rapy, Position/Reposition, Stretching Pharmacological Interventions: PRN Medication, Topical Medication PQRS Narrative: Hx Alcohol Use (MH) No Home Medications: Ambulatory Orders Apixaban [Eliquis] 5 mg PO BID 05/17/21 Aspirin 325 mg PO DAILY 05/17/21 Fluticasone Nasal [place] [Flonase Nasal [place]] 2 spray EA NOSTRIL DAILY PRN 05/17/21 Multivitamins, Thera [Multivitamin (formulary)] 1 tab PO DAILY 05/17/21 Potassium Chloride [Klor-Con 20] 20 meq PO DAILY 05/17/21 Simvastatin [Zocor] 20 mg PO HS 05/17/21 Vitamin B Complex 1 each PO DAILY 05/17/21 Acetaminophen Tab [Tylenol] 650 mg PO Q4HR PRN tab 06/02/21 Amiodarone [Cordarone] 200 mg PO DAILY #10 tab 06/02/21 Ascorbic Acid [Vitamin C] 500 mg PO DAILY@1200 #14 tab 06/02/21 Ferrous Sulfate [Iron (65 MG Elemental)] 325 mg PO W/LUNCH #14 tab 06/02/21 Furosemide [Lasix] 40 mg PO DAILY #30 tablet 06/02/21 Metoprolol Tartrate [Lopressor] 12.5 mg PO BID #60 tab 06/02/21 Pantoprazole [Protonix] 40 mg PO AC-BRKFST #30 tab 06/02/21 Sennosides-Docusate Sodium [Senokot-S] 2 each PO HS #30 tab 06/02/21 Diclofenac Sodium Gel [Voltaren 1% Gel] 100 gm TOPICAL BID 30 Days #1 each 08/30/23 HYDROcodone/APAP 7.5-325MG [[place] 7.5-325] 1 tab PO Q4H PRN 3 Days #15 tab 08/30/23 Controlled Substance Measures - Controlled Substance Measures Is patient prescribed a controlled substance at discharge?: Yes When asked, does pt state using other controlled substances?: Yes If prescribed controlled substance>3 days was MAPS reviewed?: Prescribed <3 Days
== END ==
LOC: PNWHC3 09:17
PROVIDERS: ATTEND Specialist
DX: M51.37 Other intervertebral disc degeneration, lumbosacral region (principal)
CPT/HCPCS: 99211

== ENCOUNTER → 2023-10-11 | Outpatient (CLI) | payer MEDICARE, BC | LOC: PNWHC3 09:00 | PROVIDERS: ATTEND Specialist | DX: M47.22 Other spondylosis with radiculopathy, cervical region (principal) | CPT/HCPCS: 99211 ==

== ENCOUNTER → 2024-01-22 | Outpatient (CLI) | payer MEDICARE, BC ==
[2024-01-22 11:11] VITALS: BP 125/84; PULSE 72; RESP 16; TEMP 97.3
--- NOTE | 2024-01-22 16:22 | P.PAINPG ---
PQRS Measure Charge Sheet Comment: HISTORY OF PRESENT ILLNESS: A 78 yr old male w at side presents today w severe and chronic LBP > 1 yr secondary to radiculopathy, spondylosis and facet arthropathy without myelopathy evaluation s/p MATTHEW L5-S1 #1. Pt states he experienced 90 % pain relief x 2 mo s/p procedure. Pt states pain level is provoked at 8 /10 in intensity, intermittent, localized in the lumbar spine, predominantly axial, achy in character w occasional shooting pain towards the BL hips. Pain is provoked by standing/ walking for periods > 10 min. Pain is alleviated by physician guided home exercises every morning since Mar 2023, heat, ice, THC products, CBD oil, use of a cane for ambulatory assistance, repositioning and rest . Interventional procedures include MATTHEW L5-S1 x1 (Sep 2023) Medicaitons include THC products, CBD topical REVIEW OF ORGAN SYSTEMS: CONSTITUTIONAL: No fevers or chills. No recent weight loss. NEUROLOGICAL: + numbness and tingling along the distal extremities. No seizure disorders or headaches. MUSCULOSKELETAL: + pain PSYCHIATRIC: Denies current depression or suicidal thoughts. Physical Examinations : Constitutional : Cooperative , not in acute distress . Neurologic : Cranial nerve II to XII intact. No focal neurological deficits. Psychiatric : alert & oriented x 3. Matching mood & appropriate affect. Judgment & insight intact. Musculoskeletal : Cervical Spine Motor strength in the deltoid and biceps: Normal right side. Normal Left side Motor strength biceps and the wrist extensors: Normal right side . Normal left side Motor strength in the triceps muscle: Normal right side. Normal left side Deep tendon reflexes: Normal at the biceps. Normal at Brachioradialis. Normal at triceps Vertebral body tenderness to deep palpation over Cervical facet loading test: positive bilaterally Spurling test: positive bilaterally Neck distraction test: positive bilaterally Joseline sign: positive bilaterally Lumbar spine Motor strength lower extremities ,thigh and legs 5/5 Right side , 5/5 Left side Deep tendon reflexes : Normal Knee Jerk. Normal Ankle Jerk Vertebral body tenderness over L5 Oliva Test positive BL L5-S1 Lumbar facet Loading Test: positive Right / positive Left Range of motion of the lumbar spine Flexion 30 degrees, extension 10 degrees Straight Leg Raise test: Left/ Right positive at degrees Michael test: positive right / positive left. Severe tenderness over the Sacroiliac joint on the Right / Left sides Gaenslen test: positive bilaterally Seated flexion test: positive bilaterally. Sacral spine : Severe tenderness over the Sacroiliac joint: right side / left side Range of motion: Flexion of the lumbar spine <60 degrees Range of motion: Extension of the lumbar spine <20 degrees Gaenslen's Test positive Michael test: positive right side / left side Thigh Thrust Test Sacral Thrust Test Imaging: Lumbar x ray from 06/09/23 reviewed MRI non contrast lumbar spine from 08/22/23 from [facility] reviewed Assessment/ Plan : Lumbar radiculopathy Recommendation of MATTHEW L5-S1 #2. Risks, benefits of procedure discussed and pt verbalized understanding. Protocol for discontinuation/ continuation of medications milind procedure discussed. All questions answered. I have spent greater than 30 minutes on patient care today. Dr Miller was available by phone for the evaluation of this patient. The time was used to review the medical records including relevant urine studies and Prescription history (MAPs), review of the available imaging, evaluation and examination of the patient, coordination of care with the medical staff and if applicable referring physicians, as well as creation of the medical record PQRS Narrative: Hx Alcohol Use (MH) No Home Medications: Ambulatory Orders Apixaban [Eliquis] 5 mg PO BID 05/17/21 Aspirin 81 - 325 mg PO DAILY 05/17/21 Fluticasone Nasal Mayking [Flonase Nasal Mayking] 2 spray EA NOSTRIL DAILY PRN 05/17/21 Multivitamins, Thera [Multivitamin (formulary)] 1 tab PO DAILY 05/17/21 Potassium Chloride [Klor-Con 20] 20 meq PO DAILY 05/17/21 Simvastatin [Zocor] 20 mg PO HS 05/17/21 Vitamin B Complex 1 each PO DAILY 05/17/21 Ascorbic Acid [Vitamin C] 500 mg PO DAILY@1200 #14 tab 06/02/21 Furosemide [Lasix] 40 mg PO DAILY #30 tablet 06/02/21 Sennosides-Docusate Sodium [Senokot-S] 2 each PO HS #30 tab 06/02/21 Diclofenac Sodium Gel [Voltaren 1% Gel] 100 gm TOPICAL BID 30 Days #1 each 08/30/23 Cannabidiol (Cbd) [Epidiolex] 1 dose PO BID 09/20/23 Metoprolol Tartrate [Lopressor] 50 mg PO BID 09/20/23 Controlled Substance Measures - Controlled Substance Measures Is patient prescribed a controlled substance at discharge?: No
== END ==
LOC: PNWHC3 10:56
PROVIDERS: ATTEND Specialist
DX: M47.27 Other spondylosis with radiculopathy, lumbosacral region (principal)
CPT/HCPCS: 99211

== ENCOUNTER 2024-02-06 08:56 | Day surgery (SDC) | payer MEDICARE, BC ==
[2024-02-06 10:05] VITALS: TEMP 98
[2024-02-06] MEDS ORDERED: LACTATED RINGERS 1,000 ML IV SCH (10:07)
[2024-02-06] MEDS ORDERED: methylPREDNISolone ACETATE 40 MG/ML 1 ML VIAL ONE (10:40)
[2024-02-06] MEDS ORDERED: IOPAMIDOL M200 10 ML VIAL ONE (10:40)
--- NOTE | 2024-02-06 10:47 | P.PCN ---
Date of Procedure: 02/06/24 Procedure(s) Performed: PREOPERATIVE DIAGNOSIS: 1- Lumbar Degenerative Disc Diseases 2-Lumbar spondylosis with Facet arthropathy without myelopathy. 3-lumbar radiculopathy POSTOPERATIVE DIAGNOSIS: 1-lumbar degenerative disc disease. 2-lumbar spondylosis with facet arthropathy without myelopath. 3-lumbar radiculopathy PROCEDURE 1. Lumbar epidural steroid injection under fluoroscopic guidance at the L5-S1 level. (Fluoroscopy imaging was available in radiology department) 2. Lumbar epidurogram. ANESTHESIA: Lidocaine 1% 3 and then only. EBL: Minimal PROCEDURE INDICATION: The patient with low back pain and radiculitis symptoms unresponsive to conservative treatment. Fluoroscopy was used to optimize visualization of the needle placement and to maximize safety. PROCEDURE DESCRIPTION / TECHNIQUE: The patient was seen and identified in the preoperative area. Risks, benefits, complications including but not limited to infections ,bleeding ,allergic reaction to the medications ,nerve damage and not complete pain releife , and alternatives were discussed with the patient. The patient agreed to proceed with the procedure and signed the consent, and vital signs were stable. Patient was taken to the OR and time out was completed. The patient was placed in the prone position on procedure table and a pillow was placed under the abdomen to reduce lumbar lordosis. The lumbosacral area was prepped and draped in the usual sterile fashion.ere closely monitored during the procedure. Vital signs was monitered during the entire procedure. Using anterior-posterior fluoroscopy, the L5-S1 interlaminar space was identified and the skin over this site was marked and then infiltrated with 1% lidocaine subcutaneously. Subsequently, a 18-gauge 6 inches long Tuohy epidural needle was inserted and advanced toward the epidural space using the ``Loss of resistance technique and guided by AP and lateral fluoroscopy. The correct needle position in the epidural space was verified with the injection of 2 mL of the water soluble contrast dye Isovue 200 contrast and observing an excellent epidurogram with the epidural spread of the dye, after negative aspiration for blood and CSF and in the absence of paresthesias. Again after negative aspiration, a 6 ml mixture containing 40 mg of Depo-medrol ( Preservetive Free ), and 2 ml of preservative free Normal Saline, and 2 ml of preservative free lidocaine 1% solution was injected and a washout of epidurogram was seen. Needle was withdrawn intact, skin was cleansed, and bandages were applied. COMPLICATIONS: None DISPOSITION / PLANS: The patient was placed in a supine position and transferred to the recovery area in a stable condition for observation. There was no evidence of lower extremity motor or sensory deficit after the procedure. Patient was discharged from the recovery room after meeting discharge criteria. Home discharge instructions were given to the patient by the staff. The patient was reexamined prior to discharge. The patient will schedule a follow up in the clinic in 2-4 weeks. Elinew held for 3 days
--- NOTE | 2024-02-06 11:07 | FL ---
Intraoperative/procedural fluoroscopic services were provided for lumbar epidural steroid injection. Total fluoroscopy time is 4.4 seconds with a total of 2 submitted images to PACS. Total DAP [id number] m Gym2. Please see the operative note for further details. [facility], , 02/06/2024 11:05 AM
[2024-02-06 11:09] VITALS: BP 130/88; PULSE 83; RESP 16
== END 2024-02-06 11:20 | disposition home or self-care (01) ==
LOC: ORPAIN 08:56
PROVIDERS: ATTEND Specialist
DX: M51.16 Intervertebral disc disorders with radiculopathy, lumbar region (principal); M47.26 Other spondylosis with radiculopathy, lumbar region; Z79.82 Long term (current) use of aspirin; Z79.01 Long term (current) use of anticoagulants
CPT/HCPCS: 62323; Q9966; J1010

== ENCOUNTER → 2024-03-06 | Outpatient (CLI) | payer MEDICARE, BC ==
--- NOTE | 2024-03-06 16:06 | P.PAINPG ---
PQRS Measure Charge Sheet Comment: HISTORY OF PRESENT ILLNESS: A 78 yr old male w at side presents today w severe and chronic LBP > 1 yr secondary to radiculopathy, spondylosis and facet arthropathy without myelopathy evaluation s/p MATTHEW L5-S1 #2. Pt states he experienced 0 % pain relief x 1 mo s/p procedure. Pt states pain level is provoked at 6 /10 in intensity, intermittent, localized in the lumbar spine, predominantly axial, achy in character without shooting pain. Pain is provoked by standing/ walking for periods > 10 min. Pain is alleviated by physician guided home exercises every morning since Mar 2023, heat, ice, THC products, CBD oil, use of a cane for ambulatory assistance, repositioning and rest . Interventional procedures include MATTHEW L5-S1 x2 (Sep 2023, Jan 2024) Medicaitons include THC products, CBD topical REVIEW OF ORGAN SYSTEMS: CONSTITUTIONAL: No fevers or chills. No recent weight lo ss. NEUROLOGICAL: + numbness and tingling along the distal extremities. No seizure disorders or headaches. MUSCULOSKELETAL: + pain PSYCHIATRIC: Denies current depression or suicidal thoughts. Physical Examinations : Constitutional : Cooperative , not in acute distress . Neurologic : Cranial nerve II to XII intact. No focal neurological deficits. Psychiatric : alert & oriented x 3. Matching mood & appropriate affect. Judgment & insight intact. Musculoskeletal : Cervical Spine Motor strength in the deltoid and biceps: Normal right side. Normal Left side Motor strength biceps and the wrist e xtensors: Normal right side . Normal left side Motor strength in the triceps muscle: Normal right side. Normal left side Deep tendon reflexes: Normal at the biceps. Normal at Brachioradialis. Normal at triceps Vertebral body tenderness to deep palpation over Cervical facet loading test: positive bilaterally Spurling test: positive bilaterally Neck distraction test: positive bilaterally Joseline sign: positive bilaterally Lumbar spine Motor strength lower extremities ,thigh and legs 5/5 Right side , 5/5 Left side Deep tendon reflexes : Normal Knee Jerk. Normal Ankle Jerk Vertebral body tenderness over L5 Oliva Test positive BL L5-S1 Lumbar facet Loading Test: positive Right / positive Left L4-L5/ L5-S1 Range of motion of the lumbar spine Flexion 30 degrees, extension 10 degrees Straight Leg Raise test: Left/ Right positive at degrees Michael test: positive right / positive left. Severe tenderness over the Sacroiliac joint on the Right / Left sides Nolalen test: positive bilaterally Seated flexion test: positive bilaterally. Sacral spine : Severe tenderness over the Sacroiliac joint: right side / left side Range of motion: Flexion of the lumbar spine <60 degrees Range of motion: Extension of the lumbar spine <20 degrees Gaenslen's Test positive Michael test: positive right side / left side Thigh Thrust Test Sacral Thrust Test Imaging: Lumbar x ray from 06/09/23 reviewed MRI non contrast lumbar spine from 08/22/23 from [facility] reviewed Assessment/ Plan : Lumbar radiculopathy, lumbar facet arthropathy Recommendation of BL MBB L4-L5/ L5-S1 #1. Risks, benefits of procedure discussed and pt verbalized understanding. Protocol for discontinuation/ continuation of medications milind procedure discussed. Minimal anesthesia including Fentanyl and Versed if clinically indicated. All questions answered. I have spent greater than 30 minutes on patient care today. Dr Miller was available by phone for the evaluation of this patient. The time was used to review the medical records including relevant urine studies and Prescription history (MAPs), review of the available imaging, evaluation and examination of the patient, coordination of care with the medical staff and if applicable referring physicians, as well as creation of the medical record PQRS Narrative: Hx Alcohol Use (MH) No Home Medications: Ambulatory Orders Apixaban [Eliquis] 5 mg PO BID 05/17/21 Aspirin 81 mg PO DAILY 05/17/21 Multivitamins, Thera [Multivitamin (formulary)] 1 tab PO DAILY 05/17/21 Potassium Chloride [Klor-Con 20] 20 meq PO DAILY 05/17/21 Simvastatin [Zocor] 20 mg PO HS 05/17/21 Vitamin B Complex 1 each PO DAILY 05/17/21 Ascorbic Acid [Vitamin C] 500 mg PO DAILY@1200 #14 tab 06/02/21 Furosemide [Lasix] 40 mg PO DAILY #30 tablet 06/02/21 Sennosides-Docusate Sodium [Senokot-S] 2 each PO HS #30 tab 06/02/21 Metoprolol Tartrate [Lopressor] 50 mg PO BID 09/20/23 Acetaminophen [Tylenol 8 Hour] 650 mg PO BID 03/06/24 Donepezil [Aricept] 1 tab PO HS 03/06/24 Controlled Substance Measures - Controlled Substance Measures Is patient prescribed a controlled substance at discharge?: No
[2024-03-06 18:05] VITALS: BP 172/88; PULSE 75; RESP 16; TEMP 97
== END ==
LOC: PNWHC3 11:10
PROVIDERS: ATTEND Specialist
DX: M47.27 Other spondylosis with radiculopathy, lumbosacral region (principal)
CPT/HCPCS: 99211